=== PATIENT | female | born 1945 | race Caucasian/White ===

== ENCOUNTER 2019-06-09 15:24 | Inpatient (IN) | payer MEDICARE ==
[~2019-06-09] VITALS: Ht 157.5 cm; Wt 71.3 kg
--- NOTE | 2019-06-09 16:03 | EKG ---
[facility] [address] [place] [address] Test Date: 2019-06-09 Test Time: 15:35:56 Pat Name: Lizandro CRANE Department: Room: Gender: F [employer] In Worker: : 1945 Requested By: BILLIE FLORES Order Number: [id number] Reading MD: Measurements Intervals [place] Rate: 60 P: 43 MI: 126 QRS: 42 QRSD: 82 T: 39 QT: 398 QTc: 402 Interpretive Statements SINUS RHYTHM NORMAL ECG No previous ECG available for comparison
[2019-06-09 16:09] LABS: HEMATOCRIT 40.7 % (36.0-47.0); HEMOGLOBIN 14.1 g/dL (12.0-15.5); MEAN CORPUSCULAR HEMOGLOBIN 30 pg (25-35); MEAN CORPUSCULAR HGB CONC 35 g/dL (31-37); MEAN CORPUSCULAR VOLUME 87 fL (79-100); PLATELET COUNT 388 x10^3/uL (140-400); RED BLOOD COUNT 4.65 x10^6/uL (3.50-5.40); RED CELL DISTRIBUTION WIDTH 13.7 % (11.5-14.5); WHITE BLOOD COUNT 10.2 x10^3/uL (4.0-11.0)
[2019-06-09 16:10] LABS: BASO % 0 % (0-3); EOS # 0.1 x10^3/uL (0.0-0.7); EOS % 1 % (0-3); LYMPH # 1.3 x10^3/uL (1.0-4.8); LYMPH % 12 % (24-48); MONO # 0.8 x10^3/uL (0.0-1.1); MONO % 8 % (0-9); NEUT % 78 % (31-73)
--- NOTE | 2019-06-09 16:42 | RAD ---
EXAM: CHEST 1 VIEW History: Dizziness COMPARISON: None available. TECHNIQUE: Single portable radiograph of the chest FINDINGS: The cardiac silhouette is unremarkable. The lungs are clear bilaterally. The costophrenic sulci are clear and well demarcated. IMPRESSION: No radiographic evidence of an acute cardiopulmonary process. Electronically signed by: Gareth Valerio MD (06/09/2019 4:39 PM) [id number]
--- NOTE | 2019-06-09 16:45 | RAD ---
PQRS Compliance Statement: One or more of the following individualized dose reduction techniques were utilized for this examination: 1. Automated exposure control 2. Adjustment of the mA and/or kV according to patient size 3. Use of iterative reconstruction technique CT head without contrast 06/09/2019 4:31 PM INDICATION: Dizziness, CVA COMPARISON: None available TECHNIQUE: Multiple axial CT images of the head were obtained from skull base through the vertex without intravenous contrast. FINDINGS: Head: Ventricles, sulci and basal cisterns are within normal limits. Low-attenuation in the periventricular white matter is suggestive of chronic small vessel ischemic changes. There is no hydrocephalus. Keys-white matter differentiation is normal. There is no acute intracranial hemorrhage. There is no mass, mass effect or midline shift. Posterior fossa is normal in appearance. Calcified extra-axial lesion along the left frontal convexity most favors a calcified meningioma. Visualized portions of the orbits are normal with exception of left lens replacement. Paranasal sinuses are well aerated. Mastoid air cells are well aerated. Scalp and calvaria are normal. IMPRESSION: No acute intracranial hemorrhage. Low-attenuation in the periventricular white matter is suggestive of chronic small vessel ischemic changes. Densely calcified extra-axial lesion along the left frontal convexity measures 7 mm, suggestive of a calcified meningioma. Electronically signed by: Emely Saenz MD (06/09/2019 4:42 PM) [id number]
[2019-06-09 16:53] LABS: CALCIUM 9.2 mg/dL (8.5-10.1); CREATININE 8.2 mg/dL (0.6-1.0); GFR 4.8; POTASSIUM 5.3 mmol/L (3.5-5.1)
[2019-06-09 17:03] LABS: PROTHROMBIN TIME PATIENT 13.7 SEC (11.7-14.0)
[2019-06-09 17:07] LABS: CREATINE KINASE 48 U/L (26-192)
[2019-06-09 17:08] LABS: ALBUMIN 3.4 g/dL (3.4-5.0); ALBUMIN/GLOBULIN RATIO 0.9 (1.0-1.7); MAGNESIUM 3.6 mg/dL (1.8-2.4); TOTAL BILIRUBIN 0.3 mg/dL (0.2-1.0)
[2019-06-09] MEDS ORDERED: ONDANSETRON PF 4 MG/2 ML VIAL. IV ONE (17:15)
[2019-06-09] MEDS ORDERED: MECLIZINE HCL 12.5 MG TABLET. PO ONE (17:15)
--- NOTE | 2019-06-09 17:24 | PHYS DOC ---
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 Patient states most of her symptoms are worse when she is up and moving. Denies any chest pain or shortness of breath. She states she is from [place] and recently moved to [place] and has no PCP. She states she had similar symptoms when she had a stroke. Review of Systems Review of Systems Constitutional: Denies fever or chills [] Eyes: Denies change in visual acuity, redness, or eye pain [] HENT: Denies nasal congestion or sore throat [] Respiratory: Denies cough or shortness of breath [] Cardiovascular: No additional information not addressed in HPI [] GI: Reports nausea and vomiting. Denies abdominal pain, bloody stools or diarrhea [] : Denies dysuria or hematuria [] Musculoskeletal: Denies back pain or joint pain [] Integument: Denies rash or skin lesions [] Neurologic: Reports dizziness. Reports loss of consciousness. Reports feeling off balance. Denies headache, focal weakness or sensory changes [] All other systems were reviewed and found to be within normal limits, except as documented in this note. Current Medications Current Medications Allergies Allergies Allergies Coded Allergies Type Severity Reaction Last Updated Verified No Known Drug Allergies 06/09/19 No Physical Exam Physical Exam Constitutional: Well developed, well nourished, no acute distress, non-toxic appearance. [] HENT: Normocephalic, atraumatic, bilateral external ears normal, oropharynx moist, no oral exudates, nose normal. [] Eyes: PERRLA, EOMI, conjunctiva normal, no discharge. [] Neck: Normal range of motion, no tenderness, supple, no stridor. [] Cardiovascular:Heart rate regular rhythm, no murmur [] Lungs & Thorax: Bilateral breath sounds clear to auscultation [] Abdomen: Bowel sounds normal, soft, no tenderness, no masses, no pulsatile masses. [] Skin: Warm, dry, no erythema, no rash. [] Back: No tenderness, no CVA tenderness. [] Extremities: No tenderness, no cyanosis, no clubbing, ROM intact, no edema. [] Neurologic: Alert and oriented X 3, normal motor function, normal sensory function, no focal deficits noted. Cranial nerves II through XII intact Psychologic: Affect normal, judgement normal, mood normal. [] Current Patient Data Vital Signs Vital Signs Date Time Temp Pulse Resp B/P (MAP) Pulse Ox O2 Delivery O2 Flow Rate FiO2 06/09/19 16:05 57 16 97 06/09/19 15:37 97.9 106/51 (69) Room Air 97.9 Lab Values Laboratory Tests Test 06/09/19 15:34 06/09/19 15:50 06/09/19 16:30 Glucose (Fingerstick) 139 mg/dL (70-99) H White Blood Count 10.2 x10^3/uL (4.0-11.0) Red Blood Count 4.65 x10^6/uL (3.50-5.40) Hemoglobin 14.1 g/dL (12.0-15.5) Hematocrit 40.7 % (36.0-47.0) Mean Corpuscular Volume 87 fL (79-100) Mean Corpuscular Hemoglobin 30 pg (25-35) Mean Corpuscular Hemoglobin Concent 35 g/dL (31-37) Red Cell Distribution Width 13.7 % (11.5-14.5) Platelet Count 388 x10^3/uL (140-400) Neutrophils (%) (Auto) 78 % (31-73) H Lymphocytes (%) (Auto) 12 % (24-48) L Monocytes (%) (Auto) 8 % (0-9) Eosinophils (%) (Auto) 1 % (0-3) Basophils (%) (Auto) 0 % (0-3) Neutrophils # (Auto) 8.0 x10^3/uL (1.8-7.7) H Lymphocytes # (Auto) 1.3 x10^3/uL (1.0-4.8) Monocytes # (Auto) 0.8 x10^3/uL (0.0-1.1) Eosinophils # (Auto) 0.1 x10^3/uL (0.0-0.7) Basophils # (Auto) 0.0 x10^3/uL (0.0-0.2) Prothrombin Time 13.7 SEC (11.7-14.0) Prothrombin Time INR 1.1 (0.8-1.1) PTT 27 SEC (24-38) Sodium Level 128 mmol/L (136-145) L Potassium Level 5.3 mmol/L (3.5-5.1) H Chloride Level 88 mmol/L (98-107) L Carbon Dioxide Level 21 mmol/L (21-32) Anion Gap 19 (6-14) H Blood Urea Nitrogen 120 mg/dL (7-20) H Creatinine 8.2 mg/dL (0.6-1.0) H Estimated GFR (Cockcroft-Gault) 4.8 BUN/Creatinine Ratio 15 (6-20) Glucose Level 120 mg/dL (70-99) H Calcium Level 9.2 mg/dL (8.5-10.1) Magnesium Level 3.6 mg/dL (1.8-2.4) H Total Bilirubin 0.3 mg/dL (0.2-1.0) Aspartate Amino Transferase (AST) 14 U/L (15-37) L Alanine Aminotransferase (ALT) 19 U/L (14-59) Alkaline Phosphatase 123 U/L (46-116) H Creatine Kinase 48 U/L (26-192) Creatine Kinase MB (Mass) 1.1 ng/mL (0.0-3.6) Creatine Kinase MB Relative Index % (0-4) Troponin I Quantitative < 0.017 ng/mL (0.000-0.055) BY-Btf-D-Type Natriuretic Peptide 829 pg/mL (0-124) H Total Protein 7.0 g/dL (6.4-8.2) Albumin 3.4 g/dL (3.4-5.0) Albumin/Globulin Ratio 0.9 (1.0-1.7) L Thyroid Stimulating Hormone (TSH) 0.725 uIU/mL (0.358-3.74) Laboratory Tests 06/09/19 15:50 Laboratory Tests 06/09/19 16:30 EKG EKG 15:[address] Hinojosa sinus rhythm HR 60 no STEMI[] Radiology/Procedures Radiology/Procedures []PROCEDURE: PORTABLE CHEST 1V EXAM: CHEST 1 VIEW History: Dizziness COMPARISON: None available. TECHNIQUE: Single portable radiograph of the chest FINDINGS: The cardiac silhouette is unremarkable. The lungs are clear bilaterally. The costophrenic sulci are clear and well demarcated. IMPRESSION: No radiographic evidence of an acute cardiopulmonary process. Electronically signed by: Gareth Valerio MD (06/09/2019 4:39 PM) [facility] [id number] DICTATED and SIGNED BY: GARETH VALERIO MD DATE: 06/09/19 [id number] PROCEDURE: CT HEAD WO CONTRAST PQRS Compliance Statement: One or more of the following individualized dose reduction techniques were utilized for this examination: 1. Automated exposure control 2. Adjustment of the mA and/or kV according to patient size 3. Use of iterative reconstruction technique CT head without contrast 06/09/2019 4:31 PM INDICATION: Dizziness, CVA COMPARISON: None available TECHNIQUE: Multiple axial CT images of the head were obtained from skull base through the vertex without intravenous contrast. FINDINGS: Head: Ventricles, sulci and basal cisterns are within normal limits. Low-attenuation in the periventricular white matter is suggestive of chronic small vessel ischemic changes. There is no hydrocephalus. Keys-white matter differentiation is normal. There is no acute intracranial hemorrhage. There is no mass, mass effect or midline shift. Posterior fossa is normal in appearance. Calcified extra-axial lesion along the left frontal convexity most favors a calcified meningioma. Visualized portions of the orbits are normal with exception of left lens replacement. Paranasal sinuses are well aerated. Mastoid air cells are well aerated. Scalp and calvaria are normal. IMPRESSION: No acute intracranial hemorrhage. Low-attenuation in the periventricular white matter is suggestive of chronic small vessel ischemic changes. Densely calcified extra-axial lesion along the left frontal convexity measures 7 mm, suggestive of a calcified meningioma. Electronically signed by: Bruno Mendez MD (06/09/2019 4:42 PM) [id number] DICTATED and SIGNED BY: BRUNO MENDEZ MD DATE: 06/09/19 1642 Course & Med Decision Making Course & Med Decision Making Pertinent Labs and Imaging studies reviewed. (See chart for details) This is a 74-year-old female who presents to the ED today with multiple complaints including dizziness, nausea, vomiting, feeling off balance, hypertension, symptoms began 4 days ago, she is also complaining of having 6 episodes of loss of consciousness in the last 2 days. Patient's vitals on arrival to the ED temperature 97.9, heart rate 61 respiration 20 blood pressure 106/51 O2 sats 99% on room air CT of the head is negative, chest x-ray is negative. EKG was negative for any acute findings. CBC no acute findings, CMP with sodium of 128, creatinine of 8.2 with BUN of 120, glucose of 120 with anion gap 19, magnesium of 3.6, potassium 5.3 with no EKG changes. 17:[address] Landis she requested IV fluids, renal ultrasound, and we stop any water pills. Spoke with Dr. Donohue who accepted patient for admission Routine consult placed for neurology Dragon Disclaimer Dragon Disclaimer This electronic medical record was generated, in whole or in part, using a voice recognition dictation system. Departure Departure Impression: Primary Impression: Hyponatremia Additional Impressions: Acute on chronic renal failure Dizziness Hypotension Disposition: ADMITTED INPATIENT Condition: STABLE Referrals: JANETTE WEEKS MD (PCP) NIHSS Stroke Scale NIH Stroke Scale: NIH Stroke Scale Response (Comments) Value Level of Consciousness: 0 Alert/Responsive 0 LOC Questions: 0 Answers both correctly 0 Best Gaze: 0 Normal 0 Visual: 0 No visual loss 0 Facial Palsy: 0 Normal, symmetrical 0 Motor - Left Arm 0 No drift 0 Motor - Right Arm 0 No drift 0 Motor - Left Leg 0 No drift 0 Motor: Right Leg 0 No drift 0 Limb Ataxia: 0 Absent 0 Sensory: 0 No loss 0 Best Language: 0 Normal 0 Dysathria: 0 Normal 0 Extinction and Inattention: 0 Normal 0 Total 0 Problem Qualifiers Additional Impressions: Acute on chronic renal failure Acute renal failure type: unspecified Chronic kidney disease stage: unspecified stage Qualified Codes: N17.9 - Acute kidney failure, unspec ified; N18.9 - Chronic kidney disease, unspecified Hypotension Hypotension type: unspecified hypotension type Qualified Codes: I95.9 - Hypotension, unspecified MUTUNGABILLIE APRN Jun 09, 2019 17:24
[2019-06-09] MEDS ORDERED: IV NORMAL SALINE 1000ML BAG 1,000 ML IV ONE ×2 (18:00→19:30)
[2019-06-09] MEDS ORDERED: ONDANSETRON PF 4 MG/2 ML VIAL. IV PRN (18:00)
[2019-06-09 19:00] VITALS: BP 93/47
[2019-06-09] MEDS ORDERED: NICOTINE 14MG PATCH. TD PRN (20:15)
--- NOTE | 2019-06-09 20:17 | PDOC1 ---
History and Physical Date of Admission Date of Admission DATE: 06/09/19 TIME: 20:12 Source Source: Chart review, Patient History of Present Illness History of Present Illness Selam Shepherd is a 74 year old female admit form ER for worsening dizziness for 4 days, 6 episodes of loss of consciousness in the last 2 days, nausea with vomiting, feeling [id number] 4 days. She has been drinking a normal amount of water, has been making some urine, is unsure if it is less. no new swelling, her dizzyness has been worse with ambulation, she is very thistry right, now, has not been out in the heat. She states she is from [place] and recently moved to [place] and has no PCP, but will be moving here to live prior CVA x2, last in 2011, she is mostly recovered Past Medical History Cardiovascular: HTN CENTRAL NERVOUS SYSTEM: CVA GI: No pertinent hx Heme/Onc: No pertinent hx ENT: No pertinent hx Renal/: No pertinent hx Endocrine: No pertinent hx Family History Family History: No Significant Social History Smoke: <1 pack per day ALCOHOL: none Drugs: None Current Problem List Problem List Problems Medical Problems: (1) Acute on chronic renal failure Status: Acute (2) Dizziness Status: Acute (3) Hypotension Status: Acute Current Medications Current Medications Current Medications Ondansetron HCl (Zofran) 4 mg 1X ONCE IV Last administered on 06/09/19at 17:11; Start 06/09/19 at 17:15; Stop 06/09/19 at 17:16; Status DC Meclizine HCl (Antivert) 25 mg 1X ONCE PO Last administered on 06/09/19at 17:11; Start 06/09/19 at 17:15; Stop 06/09/19 at 17:16; Status DC Ondansetron HCl (Zofran) 4 mg PRN Q8HRS PRN IV NAUSEA/VOMITING; Start 06/09/19 at 18:00; Stop 06/10/19 at 17:59 Sodium Chloride 1,000 ml @ 125 mls/hr 1X ONCE IV Last administered on 06/09/19at 18:42; Start 06/09/19 at 18:00; Stop 06/10/19 at 01:59 Sodium Chloride 1,000 ml @ 100 mls/hr 1X ONCE IV ; Start 7/18/19 at 19:30; Stop 06/10/19 at 05:29 Allergies Allergies: Coded Allergies: No Known Drug Allergies (Unverified , 06/09/19) ROS General: YES: Fatigue; No: Chills, Night Sweats, Malaise, Appetite, Other PSYCHOLOGICAL ROS: No: Anxiety, Behavioral Disorder, Concentration difficultie, Decreased libido, Depression, Disorientation, Hallucinations, Hostility, Irritablity, Memory difficulties, Mood Swings, Obsessive thoughts, Physical abuse, Sexual abuse, Sleep disturbances, Suicidal ideation, Other Eyes: No Blurry vision, No Decreased vision, No Double vision, No Dry eyes, No Excessive tearing, No Eye Pain, No Itchy Eyes, No Loss of vision, No Ph otophobia, No Scotomata, No Uses contacts, No Uses glasses, No Other HEENT: YES: Heacaches; No: Visual Changes, Hearing change, Nasal congestion, Nasal discharge, Oral lesions, Sinus pain, Sore Throat, Epistaxis, Sneezing, Snoring, Tinnitus, Vertigo, Vocal changes, Other Hematological and Lymphatic: No: Bleeding Problems, Blood Clots, Blood Transfusions, Brusing, Night Sweats, Pallor, Swollen Lymph Nodes, Other Respiratory: No: Cough, Hemoptysis, Orthopnea, Pleuritic Pain, Shortness of breath, SOB with excertion, Sputum Changes, Stridor, Tachypnea, Wheezing, Other Cardiovascular: No Chest Pain, No Palpitations, No Orthopnea, No Paroxysmal Noc. Dyspnea, No Edema, No Lt Headedness, No Other Gastrointestinal: No Nausea, No Vomiting, No Abdominal Pain, No Diarrhea, No Constipation, No Melena, No Hematochezia, No Other Genitourinary: No Dysuria, No Frequency, No Incontinence, No Hematuria, No Retention, No Discharge, No Urgency, No Pain, No Flank Pain, No Other, No , No , No , No , No , No , No Musculoskeletal: Yes Joint Stiffness; No Gait Disturbance, No Joint Pain, No Joint Swelling, No Muscle Pain, No Muscular Weakness, No Pain In:, No Swelling In:, No Other Neurological: No Behavorial Changes, No Bowel/Bladder ControlChng, No Confusion, No Dizziness, No Gait Disturbance, No Headaches, No Impaired Coord/balance, No Memory Loss, No Numbness/Tingling, No Seizures, No Speech Problems, No Tremors, No Visual Changes, No Weakness, No Other Skin: Yes Dry Skin; No Eczema, No Hair Changes, No Lumps, No Mole Changes, No Mottling, No Nail Changes, No Pruritus, No Rash, No Skin Lesion Changes, No Other, No Acne Physical Exam General: Alert, Cooperative, No acute distress HEENT: EOMI Lungs: Clear to auscultation Heart: S1S2, RRR, no gallops, no murmurs Abdomen: Normal bowel sounds, Soft Rectal Exam: not examined Extremities: No cyanosis, No edema, Normal pulses Skin: No significant lesion Neuro: Normal speech, Sensation intact, Cranial nerves 3-12 NL Psych/Mental Status: Mental status NL, Mood NL Vitals Vitals Vital Signs Date Time Temp Pulse Resp B/P (MAP) Pulse Ox O2 Delivery O2 Flow Rate FiO2 06/09/19 18:40 62 24 97 06/09/19 15:37 97.9 106/51 (69) Room Air 97.9 Labs Labs Laboratory Tests Test 06/09/19 15:34 06/09/19 15:50 06/09/19 16:30 Glucose (Fingerstick) 139 mg/dL (70-99) White Blood Count 10.2 x10^3/uL (4.0-11.0) Red Blood Count 4.65 x10^6/uL (3.50-5.40) Hemoglobin 14.1 g/dL (12.0-15.5) Hematocrit 40.7 % (36.0-47.0) Mean Corpuscular Volume 87 fL (79-100) Mean Corpuscular Hemoglobin 30 pg (25-35) Mean Corpuscular Hemoglobin Concent 35 g/dL (31-37) Red Cell Distribution Width 13.7 % (11.5-14.5) Platelet Count 388 x10^3/uL (140-400) Neutrophils (%) (Auto) 78 % (31-73) Lymphocytes (%) (Auto) 12 % (24-48) Monocytes (%) (Auto) 8 % (0-9) Eosinophils (%) (Auto) 1 % (0-3) Basophils (%) (Auto) 0 % (0-3) Neutrophils # (Auto) 8.0 x10^3/uL (1.8-7.7) Lymphocytes # (Auto) 1.3 x10^3/uL (1.0-4.8) Monocytes # (Auto) 0.8 x10^3/uL (0.0-1.1) Eosinophils # (Auto) 0.1 x10^3/uL (0.0-0.7) Basophils # (Auto) 0.0 x10^3/uL (0.0-0.2) Prothrombin Time 13.7 SEC (11.7-14.0) Prothromb Time International Ratio 1.1 (0.8-1.1) Activated Partial Thromboplast Time 27 SEC (24-38) Sodium Level 128 mmol/L (136-145) Potassium Level 5.3 mmol/L (3.5-5.1) Chloride Level 88 mmol/L (98-107) Carbon Dioxide Level 21 mmol/L (21-32) Anion Gap 19 (6-14) Blood Urea Nitrogen 120 mg/dL (7-20) Creatinine 8.2 mg/dL (0.6-1.0) Estimated GFR (Cockcroft-Gault) 4.8 BUN/Creatinine Ratio 15 (6-20) Glucose Level 120 mg/dL (70-99) Calcium Level 9.2 mg/dL (8.5-10.1) Magnesium Level 3.6 mg/dL (1.8-2.4) Total Bilirubin 0.3 mg/dL (0.2-1.0) Aspartate Amino Transf (AST/SGOT) 14 U/L (15-37) Alanine Aminotransferase (ALT/SGPT) 19 U/L (14-59) Alkaline Phosphatase 123 U/L (46-116) Creatine Kinase 48 U/L (26-192) Creatine Kinase MB (Mass) 1.1 ng/mL (0.0-3.6) Creatine Kinase MB Relative Index % (0-4) Troponin I Quantitative < 0.017 ng/mL (0.000-0.055) BX-Uxl-R-Type Natriuretic Peptide 829 pg/mL (0-124) Total Protein 7.0 g/dL (6.4-8.2) Albumin 3.4 g/dL (3.4-5.0) Albumin/Globulin Ratio 0.9 (1.0-1.7) Thyroid Stimulating Hormone (TSH) 0.725 uIU/mL (0.358-3.74) Laboratory Tests Test 06/09/19 15:34 06/09/19 15:50 06/09/19 16:30 Glucose (Fingerstick) 139 mg/dL (70-99) White Blood Count 10.2 x10^3/uL (4.0-11.0) Red Blood Count 4.65 x10^6/uL (3.50-5.40) Hemoglobin 14.1 g/dL (12.0-15.5) Hematocrit 40.7 % (36.0-47.0) Mean Corpuscular Volume 87 fL (79-100) Mean Corpuscular Hemoglobin 30 pg (25-35) Mean Corpuscular Hemoglobin Concent 35 g/dL (31-37) Red Cell Distribution Width 13.7 % (11.5-14.5) Platelet Count 388 x10^3/uL (140-400) Neutrophils (%) (Auto) 78 % (31-73) Lymphocytes (%) (Auto) 12 % (24-48) Monocytes (%) (Auto) 8 % (0-9) Eosinophils (%) (Auto) 1 % (0-3) Basophils (%) (Auto) 0 % (0-3) Neutrophils # (Auto) 8.0 x10^3/uL (1.8-7.7) Lymphocytes # (Auto) 1.3 x10^3/uL (1.0-4.8) Monocytes # (Auto) 0.8 x10^3/uL (0.0-1.1) Eosinophils # (Auto) 0.1 x10^3/uL (0.0-0.7) Basophils # (Auto) 0.0 x10^3/uL (0.0-0.2) Prothrombin Time 13.7 SEC (11.7-14.0) Prothromb Time International Ratio 1.1 (0.8-1.1) Activated Partial Thromboplast Time 27 SEC (24-38) Sodium Level 128 mmol/L (136-145) Potassium Level 5.3 mmol/L (3.5-5.1) Chloride Level 88 mmol/L (98-107) Carbon Dioxide Level 21 mmol/L (21-32) Anion Gap 19 (6-14) Blood Urea Nitrogen 120 mg/dL (7-20) Creatinine 8.2 mg/dL (0.6-1.0) Estimated GFR (Cockcroft-Gault) 4.8 BUN/Creatinine Ratio 15 (6-20) Glucose Level 120 mg/dL (70-99) Calcium Level 9.2 mg/dL (8.5-10.1) Magnesium Level 3.6 mg/dL (1.8-2.4) Total Bilirubin 0.3 mg/dL (0.2-1.0) Aspartate Amino Transf (AST/SGOT) 14 U/L (15-37) Alanine Aminotransferase (ALT/SGPT) 19 U/L (14-59) Alkaline Phosphatase 123 U/L (46-116) Creatine Kinase 48 U/L (26-192) Creatine Kinase MB (Mass) 1.1 ng/mL (0.0-3.6) Creatine Kinase MB Relative Index % (0-4) Troponin I Quantitative < 0.017 ng/mL (0.000-0.055) BE-Vvf-C-Type Natriuretic Peptide 829 pg/mL (0-124) Total Protein 7.0 g/dL (6.4-8.2) Albumin 3.4 g/dL (3.4-5.0) Albumin/Globulin Ratio 0.9 (1.0-1.7) Thyroid Stimulating Hormone (TSH) 0.725 uIU/mL (0.358-3.74) VTE Prophylaxis Ordered VTE Prophylaxis Devices: No VTE Pharmacological Prophylaxi: Yes Assessment/Plan Assessment/Plan acute renal failure, atn hyponatremia htn prior stroke BEL PAYNE MD Jun 09, 2019 20:17
[2019-06-09 23:00] VITALS: BP 93/50
[2019-06-10] VITALS (8 sets, daily range): BP systolic 90–121; BP diastolic 43–56
[2019-06-10] MEDS ORDERED: MELO7.5T29 PO (00:03)
[2019-06-10] MEDS ORDERED: LISI-130 PO (00:03)
[2019-06-10] MEDS ORDERED: ATEN50TA PO (00:03)
[2019-06-10] MEDS ORDERED: LEVO137T3 PO (00:03)
[2019-06-10] MEDS ORDERED: CYCL10TA2 PO (00:03)
[2019-06-10] MEDS ORDERED: ACETAMINOPHEN 325 MG TABLET. PO PRN (03:30)
[2019-06-10 04:45] LABS: BASO % 0 % (0-3); EOS # 0.1 x10^3/uL (0.0-0.7); EOS % 2 % (0-3); HEMATOCRIT 40.6 % (36.0-47.0); HEMOGLOBIN 13.4 g/dL (12.0-15.5); LYMPH # 1.4 x10^3/uL (1.0-4.8); LYMPH % 15 % (24-48); MEAN CORPUSCULAR HEMOGLOBIN 30 pg (25-35); MEAN CORPUSCULAR HGB CONC 33 g/dL (31-37); MEAN CORPUSCULAR VOLUME 91 fL (79-100); MONO # 0.8 x10^3/uL (0.0-1.1); MONO % 9 % (0-9); NEUT # 6.9 x10^3/uL (1.8-7.7); NEUT % 75 % (31-73); PLATELET COUNT 292 x10^3/uL (140-400); RED BLOOD COUNT 4.48 x10^6/uL (3.50-5.40); RED CELL DISTRIBUTION WIDTH 13.7 % (11.5-14.5); WHITE BLOOD COUNT 9.3 x10^3/uL (4.0-11.0)
[2019-06-10 05:13] LABS: CALCIUM 8.5 mg/dL (8.5-10.1); CREATININE 7.7 mg/dL (0.6-1.0); GFR 5.1; PHOSPHORUS 8.9 mg/dL (2.6-4.7); POTASSIUM 4.8 mmol/L (3.5-5.1)
--- NOTE | 2019-06-10 07:54 | RAD ---
Indication:Elevated creatinine. TECHNIQUE: Grayscale, color Doppler and spectral waveform is of the kidneys obtained. COMPARISON:None FINDINGS: Right kidney measures 10.2 x 4.0 x 4.7 cm without hydronephrosis. Few hypoechoic to anechoic lesions are seen in the right kidney, the largest measuring 1.5 x 1.3 x 1.2 cm. IVC is collapsed. Diffuse atherosclerotic plaque is seen in the aorta which is patent. No aortic aneurysm. Bladder is decompressed limiting evaluation. Left kidney measures 11.7 x 3.8 x 4.3 cm. Hypoechoic lesion is seen in the inferior pole of the left kidney measuring 1.4 x 1 point for by 1.1 cm. No elevated resistive indexes in the bilateral renal arteries. IMPRESSION: 1. Evidence of chronic kidney disease. 2. Bilateral small hypoechoic lesions likely cysts some of which may be minimally complicated although given small size it is difficult to characterize. Consider nonemergent MRI of the abdomen with IV contrast for better characterization of this lesions. Alternatively follow-up ultrasound in 3 months recommended. Electronically signed by: Jv Toney DO (06/10/2019 7:51 AM) [facility]
[2019-06-10] MEDS: LEVOTHYROXINE 137 MCG TABLET PO SCH (09:00)
[2019-06-10] MEDS: CYCLOBENZAPRINE 10 MG TABLET. PO SCH ×3 (09:00→20:56)
[2019-06-10] MEDS ORDERED: ONDANSETRON PF 4 MG/2 ML VIAL. IV PRN (09:00)
[2019-06-10] MEDS ORDERED: MECLIZINE HCL 12.5 MG TABLET. PO PRN (09:00)
[2019-06-10] MEDS ORDERED: ACETAMINOPHEN 500 MG TABLET PO PRN (09:00)
--- NOTE | 2019-06-10 09:08 | NUR ---
SW reviewed pt's medical chart and evaluated for potential dc needs. Pt recently moved to [place] from [place], [place]. She currently lives home alone and was admitted for hypotension unspecified and acute kidney failure with tubular necrosis. Pt is on room air and PT/OT has not been ordered. SW will continue to follow and evaluate for potential dc needs.
--- NOTE | 2019-06-10 10:00 | PDOC2 ---
CONSULT Date of Consult Date of Consult DATE: 06/10/19 TIME: 09:57 Reason for Consult Reason for Consult: DIVINA, Hyponatremia Source Source: Chart review, Patient History of Present Illness Reason for Visit: Pt is a 74 year old CF admit form ER for worsening dizziness for 4 days, 6 episodes of loss of consciousness in the last 2 days, nausea with vomiting, feeling pei-vctunfl-obm 4 days. She has been drinking a normal amount of water, has been making some urine, is unsure if it is less. no new swelling, her dizzyness has been worse with ambulation. She states she is from [place] and recently moved to [place] and has no PCP, but will be moving here to live prior CVA x2, last in 2011, she is mostly recovered. She states she is not aware of any CKD - ? Poor historian Past Medical History Cardiovascular: HTN CENTRAL NERVOUS SYSTEM: CVA GI: No pertinent hx Heme/Onc: No pertinent hx ENT: No pertinent hx Renal/: No pertinent hx Endocrine: No pertinent hx Family History Family History: No Significant Social History <1 pack per day ALCOHOL: none Drugs: None Current Problem List Problem List Problems Medical Problems: (1) Acute on chronic renal failure Status: Acute (2) Dizziness Status: Acute (3) Hypotension Status: Acute Current Medications Current Medications Current Medications Ondansetron HCl (Zofran) 4 mg 1X ONCE IV Last administered on 06/09/19at 17:11; Start 06/09/19 at 17:15; Stop 06/09/19 at 17:16; Status DC Meclizine HCl (Antivert) 25 mg 1X ONCE PO Last administered on 06/09/19at 17:11; Start 06/09/19 at 17:15; Stop 06/09/19 at 17:16; Status DC Ondansetron HCl (Zofran) 4 mg PRN Q8HRS PRN IV NAUSEA/VOMITING; Start 06/09/19 at 18:00; Stop 06/10/19 at 08:50; Status DC Sodium Chloride 1,000 ml @ 125 mls/hr 1X ONCE IV Last administered on 06/09/19at 18:42; Start 06/09/19 at 18:00; Stop 06/10/19 at 01:59; Status DC Sodium Chloride 1,000 ml @ 100 mls/hr 1X ONCE IV Last administered on 06/09/19at 19:30; Start 06/09/19 at 19:30; Stop 06/10/19 at 05:29; Status DC Nicotine (Nicoderm Cq 14mg) 1 patch PRN DAILY PRN TD SMOKING CESSATION; Start 06/09/19 at 20:15 Acetaminophen (Tylenol) 650 mg PRN Q6HRS PRN PO MILD PAIN 1-3 Last administered on 06/10/19at 03:57; Start 06/10/19 at 03:30; Stop 06/10/19 at 08:52; Status DC Ondansetron HCl (Zofran) 4 mg PRN Q6HRS PRN IV NAUSEA/VOMITING; Start 06/10/19 at 09:00 Acetaminophen (Tylenol) 500 mg PRN Q6HRS PRN PO MILD PAIN / TEMP; Start 06/10/19 at 09:00 Acetaminophen/ Codeine Phosphate (Tylenol #3) 1 tab PRN Q6HRS PRN PO MODERATE PAIN; Start 06/10/19 at 09:00 Meclizine HCl (Antivert) 25 mg PRN Q6HRS PRN PO DIZZINESS; Start 06/10/19 at 09:00 Cyclobenzaprine HCl (Flexeril) 10 mg TID PO ; Start 06/10/19 at 09:00 Levothyroxine Sodium (Synthroid) 137 mcg DAILY06 PO ; Start 06/10/19 at 09:00 Sodium Chloride 1,000 ml @ 100 mls/hr Q10H IV ; Start 06/10/19 at 09:00 Active Scripts Active Reported Lisinopril 40 Mg Tablet 1 Tab PO DAILY Cyclobenzaprine Hcl 10 Mg Tablet 1 Tab PO TID Atenolol 50 Mg Tablet 1 Tab PO DAILY Levothyroxine Sodium 137 Mcg Tablet 1 Tab PO DAILY Meloxicam 7.5 Mg Tablet 7.5 Mg PO DAILY Allergies Allergies: Coded Allergies: No Known Drug Allergies (Unverified , 06/09/19) ROS Review of System Per HPI Physical Exam Physical Exam General: Alert, Cooperative, No acute distress HEENT: EOMI Lungs: Clear to auscultation Heart: S1S2, RRR, no gallops, no murmurs Abdomen: Normal bowel sounds, Soft Extremities: No edema Skin: No rash Neuro: Grossly normal, No asterexis No Quijano Vital Signs Vital Signs Date Time Temp Pulse Resp B/P (MAP) Pulse Ox O2 Delivery O2 Flow Rate FiO2 06/10/19 07:00 98.2 62 18 121/47 (71) 97 Room Air 98.2 Assessment & Plan DIVINA - ? ATN No past medical Hx available No improvement with IVF Will initiate HD Hyponatremia- Hemodialysis today, Continue IVF as well HTN- BP stable Hx of CVA Discussed with Pt and RN Labs Labs Laboratory Tests Test 06/09/19 15:34 06/09/19 15:50 06/09/19 16:30 06/10/19 04:00 Glucose (Fingerstick) 139 mg/dL (70-99) White Blood Count 10.2 x10^3/uL (4.0-11.0) 9.3 x10^3/uL (4.0-11.0) Red Blood Count 4.65 x10^6/uL (3.50-5.40) 4.48 x10^6/uL (3.50-5.40) Hemoglobin 14.1 g/dL (12.0-15.5) 13.4 g/dL (12.0-15.5) Hematocrit 40.7 % (36.0-47.0) 40.6 % (36.0-47.0) Mean Corpuscular Volume 87 fL (79-100) 91 fL (79-100) Mean Corpuscular Hemoglobin 30 pg (25-35) 30 pg (25-35) Mean Corpuscular Hemoglobin Concent 35 g/dL (31-37) 33 g/dL (31-37) Red Cell Distribution Width 13.7 % (11.5-14.5) 13.7 % (11.5-14.5) Platelet Count 388 x10^3/uL (140-400) 292 x10^3/uL (140-400) Neutrophils (%) (Auto) 78 % (31-73) 75 % (31-73) Lymphocytes (%) (Auto) 12 % (24-48) 15 % (24-48) Monocytes (%) (Auto) 8 % (0-9) 9 % (0-9) Eosinophils (%) (Auto) 1 % (0-3) 2 % (0-3) Basophils (%) (Auto) 0 % (0-3) 0 % (0-3) Neutrophils # (Auto) 8.0 x10^3/uL (1.8-7.7) 6.9 x10^3/uL (1.8-7.7) Lymphocytes # (Auto) 1.3 x10^3/uL (1.0-4.8) 1.4 x10^3/uL (1.0-4.8) Monocytes # (Auto) 0.8 x10^3/uL (0.0-1.1) 0.8 x10^3/uL (0.0-1.1) Eosinophils # (Auto) 0.1 x10^3/uL (0.0-0.7) 0.1 x10^3/uL (0.0-0.7) Basophils # (Auto) 0.0 x10^3/uL (0.0-0.2) 0.0 x10^3/uL (0.0-0.2) Prothrombin Time 13.7 SEC (11.7-14.0) Prothromb Time International Ratio 1.1 (0.8-1.1) Activated Partial Thromboplast Time 27 SEC (24-38) Sodium Level 128 mmol/L (136-145) 126 mmol/L (136-145) Potassium Level 5.3 mmol/L (3.5-5.1) 4.8 mmol/L (3.5-5.1) Chloride Level 88 mmol/L (98-107) 91 mmol/L (98-107) Carbon Dioxide Level 21 mmol/L (21-32) 17 mmol/L (21-32) Anion Gap 19 (6-14) 18 (6-14) Blood Urea Nitrogen 120 mg/dL (7-20) 128 mg/dL (7-20) Creatinine 8.2 mg/dL (0.6-1.0) 7.7 mg/dL (0.6-1.0) Estimated GFR (Cockcroft-Gault) 4.8 5.1 BUN/Creatinine Ratio 15 (6-20) Glucose Level 120 mg/dL (70-99) 118 mg/dL (70-99) Calcium Level 9.2 mg/dL (8.5-10.1) 8.5 mg/dL (8.5-10.1) Magnesium Level 3.6 mg/dL (1.8-2.4) Total Bilirubin 0.3 mg/dL (0.2-1.0) Aspartate Amino Transf (AST/SGOT) 14 U/L (15-37) Alanine Aminotransferase (ALT/SGPT) 19 U/L (14-59) Alkaline Phosphatase 123 U/L (46-116) Creatine Kinase 48 U/L (26-192) Creatine Kinase MB (Mass) 1.1 ng/mL (0.0-3.6) Creatine Kinase MB Relative Index % (0-4) Troponin I Quantitative < 0.017 ng/mL (0.000-0.055) WD-Urx-A-Type Natriuretic Peptide 829 pg/mL (0-124) Total Protein 7.0 g/dL (6.4-8.2) Albumin 3.4 g/dL (3.4-5.0) Albumin/Globulin Ratio 0.9 (1.0-1.7) Thyroid Stimulating Hormone (TSH) 0.725 uIU/mL (0.358-3.74) Phosphorus Level 8.9 mg/dL (2.6-4.7) Laboratory Tests Test 06/09/19 15:34 06/09/19 15:50 06/09/19 16:30 06/10/19 04:00 Glucose (Fingerstick) 139 mg/dL (70-99) White Blood Count 10.2 x10^3/uL (4.0-11.0) 9.3 x10^3/uL (4.0-11.0) Red Blood Count 4.65 x10^6/uL (3.50-5.40) 4.48 x10^6/uL (3.50-5.40) Hemoglobin 14.1 g/dL (12.0-15.5) 13.4 g/dL (12.0-15.5) Hematocrit 40.7 % (36.0-47.0) 40.6 % (36.0-47.0) Mean Corpuscular Volume 87 fL (79-100) 91 fL (79-100) Mean Corpuscular Hemoglobin 30 pg (25-35) 30 pg (25-35) Mean Corpuscular Hemoglobin Concent 35 g/dL (31-37) 33 g/dL (31-37) Red Cell Distribution Width 13.7 % (11.5-14.5) 13.7 % (11.5-14.5) Platelet Count 388 x10^3/uL (140-400) 292 x10^3/uL (140-400) Neutrophils (%) (Auto) 78 % (31-73) 75 % (31-73) Lymphocytes (%) (Auto) 12 % (24-48) 15 % (24-48) Monocytes (%) (Auto) 8 % (0-9) 9 % (0-9) Eosinophils (%) (Auto) 1 % (0-3) 2 % (0-3) Basophils (%) (Auto) 0 % (0-3) 0 % (0-3) Neutrophils # (Auto) 8.0 x10^3/uL (1.8-7.7) 6.9 x10^3/uL (1.8-7.7) Lymphocytes # (Auto) 1.3 x10^3/uL (1.0-4.8) 1.4 x10^3/uL (1.0-4.8) Monocytes # (Auto) 0.8 x10^3/uL (0.0-1.1) 0.8 x10^3/uL (0.0-1.1) Eosinophils # (Auto) 0.1 x10^3/uL (0.0-0.7) 0.1 x10^3/uL (0.0-0.7) Basophils # (Auto) 0.0 x10^3/uL (0.0-0.2) 0.0 x10^3/uL (0.0-0.2) Prothrombin Time 13.7 SEC (11.7-14.0) Prothromb Time International Ratio 1.1 (0.8-1.1) Activated Partial Thromboplast Time 27 SEC (24-38) Sodium Level 128 mmol/L (136-145) 126 mmol/L (136-145) Potassium Level 5.3 mmol/L (3.5-5.1) 4.8 mmol/L (3.5-5.1) Chloride Level 88 mmol/L (98-107) 91 mmol/L (98-107) Carbon Dioxide Level 21 mmol/L (21-32) 17 mmol/L (21-32) Anion Gap 19 (6-14) 18 (6-14) Blood Urea Nitrogen 120 mg/dL (7-20) 128 mg/dL (7-20) Creatinine 8.2 mg/dL (0.6-1.0) 7.7 mg/dL (0.6-1.0) Estimated GFR (Cockcroft-Gault) 4.8 5.1 BUN/Creatinine Ratio 15 (6-20) Glucose Level 120 mg/dL (70-99) 118 mg/dL (70-99) Calcium Level 9.2 mg/dL (8.5-10.1) 8.5 mg/dL (8.5-10.1) Magnesium Level 3.6 mg/dL (1.8-2.4) Total Bilirubin 0.3 mg/dL (0.2-1.0) Aspartate Amino Transf (AST/SGOT) 14 U/L (15-37) Alanine Aminotransferase (ALT/SGPT) 19 U/L (14-59) Alkaline Phosphatase 123 U/L (46-116) Creatine Kinase 48 U/L (26-192) Creatine Kinase MB (Mass) 1.1 ng/mL (0.0-3.6) Creatine Kinase MB Relative Index % (0-4) Troponin I Quantitative < 0.017 ng/mL (0.000-0.055) QT-Mgb-A-Type Natriuretic Peptide 829 pg/mL (0-124) Total Protein 7.0 g/dL (6.4-8.2) Albumin 3.4 g/dL (3.4-5.0) Albumin/Globulin Ratio 0.9 (1.0-1.7) Thyroid Stimulating Hormone (TSH) 0.725 uIU/mL (0.358-3.74) Phosphorus Level 8.9 mg/dL (2.6-4.7) Review All relevant outside records, renal labs, imaging studies, telemetry/EKG's were reviewed. Images Images Right kidney measures 10.2 x 4.0 x 4.7 cm without hydronephrosis. Few hypoechoic to anechoic lesions are seen in the right kidney, the largest measuring 1.5 x 1.3 x 1.2 cm. IVC is collapsed. Diffuse atherosclerotic plaque is seen in the aorta which is patent. No aortic aneurysm. Bladder is decompressed limiting evaluation. Left kidney measures 11.7 x 3.8 x 4.3 cm. Hypoechoic lesion is seen in the inferior pole of the left kidney measuring 1.4 x 1 point for by 1.1 cm. No elevated resistive indexes in the bilateral renal arteries. IMPRESSION: 1. Evidence of chronic kidney disease. 2. Bilateral small hypoechoic lesions likely cysts some of which may be minimally complicated although given small size it is difficult to characterize. Consider nonemergent MRI of the abdomen with IV contrast for better characterization of this lesions. Alternatively follow-up ultrasound in 3 months recommended. HARINDER ART MD Jun 10, 2019 10:00
[2019-06-10] MEDS: IV NORMAL SALINE 1000ML BAG 1,000 ML IV SCH ×2 (10:50→22:30)
[2019-06-10] MEDS ORDERED: LIDOCAINE WITH 8.4% SOD BICARB 3 ML DISP.SYRIN. ONE (12:10)
--- NOTE | 2019-06-10 12:23 | PDOC ---
PROGRESS NOTES Chief Complaint Chief Complaint AK I on CK D-stage-5 Diarrhea �4 days Emesis times few days Hypertension, controlled Hyponatremia is smoker History of Present Illness History of Present Illness creat 7 admission and down to 5 Was told her PCP before they were watching the kidneys as OP Sodium 126 from 128, smoker Renal has seen and advises dialysis and will start today after dialysis catheter inserted She gives consent Blood pressure controlled - actually on low side Creatinine down to 5 from 7, some oliguria she noted She was taking mobic, MICHAEL inhibitor at home Plan: hold mobic, MICHAEL inhibitor and atenolol as blood pressure on the low side She came in for dizziness Normal saline to start 100 mL an hour Monitor I and O Ultrasound of the kidneys noted, medical renal disease and I have explained provided copies with daughter at bedside Would benefit from PT OT per RN BMP again tomorrow Avoid nephrotoxins Nicotine patch Smoking cessation Bolus when necessary if hypotension persists HD cath insertion to be done today with first session today Vitals Vitals Vital Signs Date Time Temp Pulse Resp B/P (MAP) Pulse Ox O2 Delivery O2 Flow Rate FiO2 06/10/19 11:00 98.2 65 18 119/44 (69) 98 Room Air 98.2 Physical Exam General: Alert, Cooperative, No acute distress Heart: Regular rate, Normal S1, Normal S2, No murmurs Lungs: Clear Abdomen: Normal bowel sounds, Soft Extremities: No cyanosis, No edema, Normal pulses Skin: No rashes, No breakdown, No significant lesion Labs LABS Laboratory Tests Test 06/09/19 15:34 06/09/19 15:50 06/09/19 16:30 06/10/19 04:00 Glucose (Fingerstick) 139 mg/dL (70-99) White Blood Count 10.2 x10^3/uL (4.0-11.0) 9.3 x10^3/uL (4.0-11.0) Red Blood Count 4.65 x10^6/uL (3.50-5.40) 4.48 x10^6/uL (3.50-5.40) Hemoglobin 14.1 g/dL (12.0-15.5) 13.4 g/dL (12.0-15.5) Hematocrit 40.7 % (36.0-47.0) 40.6 % (36.0-47.0) Mean Corpuscular Volume 87 fL (79-100) 91 fL (79-100) Mean Corpuscular Hemoglobin 30 pg (25-35) 30 pg (25-35) Mean Corpuscular Hemoglobin Concent 35 g/dL (31-37) 33 g/dL (31-37) Red Cell Distribution Width 13.7 % (11.5-14.5) 13.7 % (11.5-14.5) Platelet Count 388 x10^3/uL (140-400) 292 x10^3/uL (140-400) Neutrophils (%) (Auto) 78 % (31-73) 75 % (31-73) Lymphocytes (%) (Auto) 12 % (24-48) 15 % (24-48) Monocytes (%) (Auto) 8 % (0-9) 9 % (0-9) Eosinophils (%) (Auto) 1 % (0-3) 2 % (0-3) Basophils (%) (Auto) 0 % (0-3) 0 % (0-3) Neutrophils # (Auto) 8.0 x10^3/uL (1.8-7.7) 6.9 x10^3/uL (1.8-7.7) Lymphocytes # (Auto) 1.3 x10^3/uL (1.0-4.8) 1.4 x10^3/uL (1.0-4.8) Monocytes # (Auto) 0.8 x10^3/uL (0.0-1.1) 0.8 x10^3/uL (0.0-1.1) Eosinophils # (Auto) 0.1 x10^3/uL (0.0-0.7) 0.1 x10^3/uL (0.0-0.7) Basophils # (Auto) 0.0 x10^3/uL (0.0-0.2) 0.0 x10^3/uL (0.0-0.2) Prothrombin Time 13.7 SEC (11.7-14.0) Prothromb Time International Ratio 1.1 (0.8-1.1) Activated Partial Thromboplast Time 27 SEC (24-38) Sodium Level 128 mmol/L (136-145) 126 mmol/L (136-145) Potassium Level 5.3 mmol/L (3.5-5.1) 4.8 mmol/L (3.5-5.1) Chloride Level 88 mmol/L (98-107) 91 mmol/L (98-107) Carbon Dioxide Level 21 mmol/L (21-32) 17 mmol/L (21-32) Anion Gap 19 (6-14) 18 (6-14) Blood Urea Nitrogen 120 mg/dL (7-20) 128 mg/dL (7-20) Creatinine 8.2 mg/dL (0.6-1.0) 7.7 mg/dL (0.6-1.0) Estimated GFR (Cockcroft-Gault) 4.8 5.1 BUN/Creatinine Ratio 15 (6-20) Glucose Level 120 mg/dL (70-99) 118 mg/dL (70-99) Calcium Level 9.2 mg/dL (8.5-10.1) 8.5 mg/dL (8.5-10.1) Magnesium Level 3.6 mg/dL (1.8-2.4) Total Bilirubin 0.3 mg/dL (0.2-1.0) Aspartate Amino Transf (AST/SGOT) 14 U/L (15-37) Alanine Aminotransferase (ALT/SGPT) 19 U/L (14-59) Alkaline Phosphatase 123 U/L (46-116) Creatine Kinase 48 U/L (26-192) Creatine Kinase MB (Mass) 1.1 ng/mL (0.0-3.6) Creatine Kinase MB Relative Index % (0-4) Troponin I Quantitative < 0.017 ng/mL (0.000-0.055) KD-Mce-V-Type Natriuretic Peptide 829 pg/mL (0-124) Total Protein 7.0 g/dL (6.4-8.2) Albumin 3.4 g/dL (3.4-5.0) Albumin/Globulin Ratio 0.9 (1.0-1.7) Thyroid Stimulating Hormone (TSH) 0.725 uIU/mL (0.358-3.74) Phosphorus Level 8.9 mg/dL (2.6-4.7) Review of Systems Review of Systems A 14 point ROS was completed with the following noted as positive: Other systems reviewed and negative. \CONSTITUTIONAL: No fever or chills EYES: No recent changes SKIN: No rash or itching CARDIOVASCULAR: No chest pain, syncope, palpitations, or edema RESPIRATORY: No SOB or cough GASTROINTESTINAL: No nausea, vomiting or abdominal pain NEUROLOGICAL: No headaches or weakness ENDOCRINE: No cold or heat intolerance GENITOURINARY: No urgency or frequency of urination MUSCULOSKELETAL: No back pain or joint pain LYMPHATICS: No enlarged lymph nodes PSYCHIATRIC: No anxiety or depression Assessment and Plan Assessmemt and Plan Problems Medical Problems: (1) Acute on chronic renal failure Status: Acute (2) Dizziness Status: Acute (3) Hypotension Status: Acute Comment Review of Relevant I have reviewed the following items le (where applicable) has been applied. Labs Laboratory Tests Test 06/09/19 15:34 06/09/19 15:50 06/09/19 16:30 06/10/19 04:00 Glucose (Fingerstick) 139 mg/dL (70-99) White Blood Count 10.2 x10^3/uL (4.0-11.0) 9.3 x10^3/uL (4.0-11.0) Red Blood Count 4.65 x10^6/uL (3.50-5.40) 4.48 x10^6/uL (3.50-5.40) Hemoglobin 14.1 g/dL (12.0-15.5) 13.4 g/dL (12.0-15.5) Hematocrit 40.7 % (36.0-47.0) 40.6 % (36.0-47.0) Mean Corpuscular Volume 87 fL (79-100) 91 fL (79-100) Mean Corpuscular Hemoglobin 30 pg (25-35) 30 pg (25-35) Mean Corpuscular Hemoglobin Concent 35 g/dL (31-37) 33 g/dL (31-37) Red Cell Distribution Width 13.7 % (11.5-14.5) 13.7 % (11.5-14.5) Platelet Count 388 x10^3/uL (140-400) 292 x10^3/uL (140-400) Neutrophils (%) (Auto) 78 % (31-73) 75 % (31-73) Lymphocytes (%) (Auto) 12 % (24-48) 15 % (24-48) Monocytes (%) (Auto) 8 % (0-9) 9 % (0-9) Eosinophils (%) (Auto) 1 % (0-3) 2 % (0-3) Basophils (%) (Auto) 0 % (0-3) 0 % (0-3) Neutrophils # (Auto) 8.0 x10^3/uL (1.8-7.7) 6.9 x10^3/uL (1.8-7.7) Lymphocytes # (Auto) 1.3 x10^3/uL (1.0-4.8) 1.4 x10^3/uL (1.0-4.8) Monocytes # (Auto) 0.8 x10^3/uL (0.0-1.1) 0.8 x10^3/uL (0.0-1.1) Eosinophils # (Auto) 0.1 x10^3/uL (0.0-0.7) 0.1 x10^3/uL (0.0-0.7) Basophils # (Auto) 0.0 x10^3/uL (0.0-0.2) 0.0 x10^3/uL (0.0-0.2) Prothrombin Time 13.7 SEC (11.7-14.0) Prothromb Time International Ratio 1.1 (0.8-1.1) Activated Partial Thromboplast Time 27 SEC (24-38) Sodium Level 128 mmol/L (136-145) 126 mmol/L (136-145) Potassium Level 5.3 mmol/L (3.5-5.1) 4.8 mmol/L (3.5-5.1) Chloride Level 88 mmol/L (98-107) 91 mmol/L (98-107) Carbon Dioxide Level 21 mmol/L (21-32) 17 mmol/L (21-32) Anion Gap 19 (6-14) 18 (6-14) Blood Urea Nitrogen 120 mg/dL (7-20) 128 mg/dL (7-20) Creatinine 8.2 mg/dL (0.6-1.0) 7.7 mg/dL (0.6-1.0) Estimated GFR (Cockcroft-Gault) 4.8 5.1 BUN/Creatinine Ratio 15 (6-20) Glucose Level 120 mg/dL (70-99) 118 mg/dL (70-99) Calcium Level 9.2 mg/dL (8.5-10.1) 8.5 mg/dL (8.5-10.1) Magnesium Level 3.6 mg/dL (1.8-2.4) Total Bilirubin 0.3 mg/dL (0.2-1.0) Aspartate Amino Transf (AST/SGOT) 14 U/L (15-37) Alanine Aminotransferase (ALT/SGPT) 19 U/L (14-59) Alkaline Phosphatase 123 U/L (46-116) Creatine Kinase 48 U/L (26-192) Creatine Kinase MB (Mass) 1.1 ng/mL (0.0-3.6) Creatine Kinase MB Relative Index % (0-4) Troponin I Quantitative < 0.017 ng/mL (0.000-0.055) AI-Sdb-B-Type Natriuretic Peptide 829 pg/mL (0-124) Total Protein 7.0 g/dL (6.4-8.2) Albumin 3.4 g/dL (3.4-5.0) Albumin/Globulin Ratio 0.9 (1.0-1.7) Thyroid Stimulating Hormone (TSH) 0.725 uIU/mL (0.358-3.74) Phosphorus Level 8.9 mg/dL (2.6-4.7) Laboratory Tests Test 06/09/19 15:34 06/09/19 15:50 06/09/19 16:30 06/10/19 04:00 Glucose (Fingerstick) 139 mg/dL (70-99) White Blood Count 10.2 x10^3/uL (4.0-11.0) 9.3 x10^3/uL (4.0-11.0) Red Blood Count 4.65 x10^6/uL (3.50-5.40) 4.48 x10^6/uL (3.50-5.40) Hemoglobin 14.1 g/dL (12.0-15.5) 13.4 g/dL (12.0-15.5) Hematocrit 40.7 % (36.0-47.0) 40.6 % (36.0-47.0) Mean Corpuscular Volume 87 fL (79-100) 91 fL (79-100) Mean Corpuscular Hemoglobin 30 pg (25-35) 30 pg (25-35) Mean Corpuscular Hemoglobin Concent 35 g/dL (31-37) 33 g/dL (31-37) Red Cell Distribution Width 13.7 % (11.5-14.5) 13.7 % (11.5-14.5) Platelet Count 388 x10^3/uL (140-400) 292 x10^3/uL (140-400) Neutrophils (%) (Auto) 78 % (31-73) 75 % (31-73) Lymphocytes (%) (Auto) 12 % (24-48) 15 % (24-48) Monocytes (%) (Auto) 8 % (0-9) 9 % (0-9) Eosinophils (%) (Auto) 1 % (0-3) 2 % (0-3) Basophils (%) (Auto) 0 % (0-3) 0 % (0-3) Neutrophils # (Auto) 8.0 x10^3/uL (1.8-7.7) 6.9 x10^3/uL (1.8-7.7) Lymphocytes # (Auto) 1.3 x10^3/uL (1.0-4.8) 1.4 x10^3/uL (1.0-4.8) Monocytes # (Auto) 0.8 x10^3/uL (0.0-1.1) 0.8 x10^3/uL (0.0-1.1) Eosinophils # (Auto) 0.1 x10^3/uL (0.0-0.7) 0.1 x10^3/uL (0.0-0.7) Basophils # (Auto) 0.0 x10^3/uL (0.0-0.2) 0.0 x10^3/uL (0.0-0.2) Prothrombin Time 13.7 SEC (11.7-14.0) Prothromb Time International Ratio 1.1 (0.8-1.1) Activated Partial Thromboplast Time 27 SEC (24-38) Sodium Level 128 mmol/L (136-145) 126 mmol/L (136-145) Potassium Level 5.3 mmol/L (3.5-5.1) 4.8 mmol/L (3.5-5.1) Chloride Level 88 mmol/L (98-107) 91 mmol/L (98-107) Carbon Dioxide Level 21 mmol/L (21-32) 17 mmol/L (21-32) Anion Gap 19 (6-14) 18 (6-14) Blood Urea Nitrogen 120 mg/dL (7-20) 128 mg/dL (7-20) Creatinine 8.2 mg/dL (0.6-1.0) 7.7 mg/dL (0.6-1.0) Estimated GFR (Cockcroft-Gault) 4.8 5.1 BUN/Creatinine Ratio 15 (6-20) Glucose Level 120 mg/dL (70-99) 118 mg/dL (70-99) Calcium Level 9.2 mg/dL (8.5-10.1) 8.5 mg/dL (8.5-10.1) Magnesium Level 3.6 mg/dL (1.8-2.4) Total Bilirubin 0.3 mg/dL (0.2-1.0) Aspartate Amino Transf (AST/SGOT) 14 U/L (15-37) Alanine Aminotransferase (ALT/SGPT) 19 U/L (14-59) Alkaline Phosphatase 123 U/L (46-116) Creatine Kinase 48 U/L (26-192) Creatine Kinase MB (Mass) 1.1 ng/mL (0.0-3.6) Creatine Kinase MB Relative Index % (0-4) Troponin I Quantitative < 0.017 ng/mL (0.000-0.055) PK-Mbq-C-Type Natriuretic Peptide 829 pg/mL (0-124) Total Protein 7.0 g/dL (6.4-8.2) Albumin 3.4 g/dL (3.4-5.0) Albumin/Globulin Ratio 0.9 (1.0-1.7) Thyroid Stimulating Hormone (TSH) 0.725 uIU/mL (0.358-3.74) Phosphorus Level 8.9 mg/dL (2.6-4.7) Medications Current Medications Ondansetron HCl (Zofran) 4 mg 1X ONCE IV Last administered on 06/09/19at 17:11; Start 06/09/19 at 17:15; Stop 06/09/19 at 17:16; Status DC Meclizine HCl (Antivert) 25 mg 1X ONCE PO Last administered on 06/09/19at 17:11; Start 06/09/19 at 17:15; Stop 06/09/19 at 17:16; Status DC Ondansetron HCl (Zofran) 4 mg PRN Q8HRS PRN IV NAUSEA/VOMITING; Start 06/09/19 at 18:00; Stop 06/10/19 at 08:50; Status DC Sodium Chloride 1,000 ml @ 125 mls/hr 1X ONCE IV Last administered on 06/09/19at 18:42; Start 06/09/19 at 18:00; Stop 06/10/19 at 01:59; Status DC Sodium Chloride 1,000 ml @ 100 mls/hr 1X ONCE IV Last administered on 06/09/19at 19:30; Start 06/09/19 at 19:30; Stop 06/10/19 at 05:29; Status DC Nicotine (Nicoderm Cq 14mg) 1 patch PRN DAILY PRN TD SMOKING CESSATION; Start 06/09/19 at 20:15 Acetaminophen (Tylenol) 650 mg PRN Q6HRS PRN PO MILD PAIN 1-3 Last administered on 06/10/19at 03:57; Start 06/10/19 at 03:30; Stop 06/10/19 at 08:52; Status DC Ondansetron HCl (Zofran) 4 mg PRN Q6HRS PRN IV NAUSEA/VOMITING; Start 06/10/19 at 09:00 Acetaminophen (Tylenol) 500 mg PRN Q6HRS PRN PO MILD PAIN / TEMP; Start 06/10/19 at 09:00 Acetaminophen/ Codeine Phosphate (Tylenol #3) 1 tab PRN Q6HRS PRN PO MODERATE PAIN; Start 06/10/19 at 09:00 Meclizine HCl (Antivert) 25 mg PRN Q6HRS PRN PO DIZZINESS; Start 06/10/19 at 09:00 Cyclobenzaprine HCl (Flexeril) 10 mg TID PO ; Start 06/10/19 at 09:00 Levothyroxine Sodium (Synthroid) 137 mcg DAILY06 PO ; Start 06/10/19 at 09:00 Sodium Chloride 1,000 ml @ 100 mls/hr Q10H IV Last administered on 06/10/19at 10:50; Start 06/10/19 at 09:00 Lidocaine/Sodium Bicarbonate (Buffered Lidocaine 1%) 3 ml STK-MED ONCE .ROUTE ; Start 06/10/19 at 12:10; Stop 06/10/19 at 12:11; Status DC Active Scripts Active Reported Lisinopril 40 Mg Tablet 1 Tab PO DAILY Cyclobenzaprine Hcl 10 Mg Tablet 1 Tab PO TID Atenolol 50 Mg Tablet 1 Tab PO DAILY Levothyroxine Sodium 137 Mcg Tablet 1 Tab PO DAILY Meloxicam 7.5 Mg Tablet 7.5 Mg PO DAILY Vitals/I & O Vital Sign - Last 24 Hours 06/09/19 06/09/19 06/09/19 06/09/19 15:35 15:37 16:05 17:40 Temp 97.9 97.9 Pulse 56 61 57 68 Resp 20 20 16 22 B/P (MAP) 106/51 (69) Pulse Ox 97 99 97 96 O2 Delivery Room Air 06/09/19 06/09/19 06/09/19 06/09/19 18:10 18:40 19:00 19:30 Temp 97.6 97.6 Pulse 72 62 56 Resp 19 24 18 B/P (MAP) 93/47 (62) Pulse Ox 96 97 99 O2 Delivery Room Air 06/09/19 06/10/19 06/10/19 06/10/19 23:00 03:00 07:00 08:00 Temp 98.1 98.0 98.2 98.1 98.0 98.2 Pulse 75 61 62 Resp 16 18 18 B/P (MAP) 93/50 (64) 90/45 (60) 121/47 (71) Pulse Ox 95 98 97 O2 Delivery Room Air Room Air 06/10/19 11:00 Temp 98.2 98.2 Pulse 65 Resp 18 B/P (MAP) 119/44 (69) Pulse Ox 98 O2 Delivery Room Air Intake and Output 06/09/19 06/09/19 06/10/19 15:00 23:00 07:00 Intake Total 240 ml 120 ml Balance 240 ml 120 ml JARET GLASS MD Jun 10, 2019 12:23
[2019-06-10] MEDS ORDERED: LIDOCAINE WITH 8.4% SOD BICARB 3 ML DISP.SYRIN. INJ ONE (12:30)
--- NOTE | 2019-06-10 14:57 | RAD ---
BRAIN W/O CONTRAST History: Persistent dizziness. Weakness. Technique: Multiplanar, multi sequential MR imaging was performed of the brain without contrast. Comparison: June 09, [address] Findings: No acute infarct. No intracranial hemorrhage. No mass effect. No hydrocephalus. Extra-axial spaces are unremarkable. Foci of T2/FLAIR hyperintensities within the hemispheric white matter, most often due to moderate sequela of chronic microvascular ischemia. Prominent perivascular spaces also noted within the bilateral centrum semiovale. Calcified left temporal region dural-based lesion, likely meningioma, unchanged. Postoperative changes left globe. Otherwise, the imaged orbits are unremarkable. Secretions within the right sphenoid sinus. Mastoid air cells are clear. Chronic left medial orbital wall small defect. Impression: 1. No acute intracranial abnormality. 2. Moderate nonspecific white matter changes, most often due to chronic microvascular ischemia. Electronically signed by: Cl Young DO (06/10/2019 2:55 PM) [id number]
[2019-06-10] MEDS: LOPERAMIDE 2 MG CAPSULE PO PRN ×4 (15:12→23:41)
[2019-06-10] MEDS ORDERED: IV NORMAL SALINE 1000ML BAG 1,000 ML IV PRN ×2 (15:39)
[2019-06-10] MEDS ORDERED: diphenhydrAMINE 50 MG/ML VIAL IV PRN ×2 (15:45)
[2019-06-10] MEDS ORDERED: DIALYSIS PATIENT. MC PRN (15:45)
--- NOTE | 2019-06-10 15:47 | RAD ---
Procedure: Temporary hemodialysis catheter placement under fluoroscopy 06/10/2019 Clinical Indication: Renal failure Contrast: None Total fluoroscopy time: 0.2 minutes Dose area product: 0.2 Gycm2 Sterility: All elements of maximal sterile barrier technique including the use of a cap, mask, sterile gown, sterile gloves, large sterile sheet, appropriate hand hygiene, and 2% chlorhexidine for cutaneous antisepsis (or acceptable alternative antiseptic per current guidelines) were followed for this procedure. Consent: The procedure was explained in its entirety to the patient or the patients designated technical sales representative by a member of the treatment team, including a discussion of the risks, benefits and commonly accepted alternatives to the procedure, as well as the expected consequences of no therapy whatsoever. Discussion of the risks included, but was not limited to, those that are most frequent and those that are rare but possibly severe or life-threatening, as well as the possibility of unforeseen complications. Technique and Findings: Following informed consent, the patient was prepped and draped in the usual sterile fashion. Ultrasound interrogation of the right neck revealed patency and compressibility of the right internal jugular vein. A 21-gauge micropuncture needle was used to gain access to this vein after 1% Lidocaine was used to achieve local anesthesia. A hardcopy ultrasound image was recorded. The needle was exchanged over a wire for serial dilators followed by a 20 temporary hemodialysis catheter which was deployed under fluoroscopic guidance such that the distal tip resided in the mid right atrium. The catheter flow rates were assessed manually and found to be excellent. The final position of the catheter was confirmed by fluoroscopy, with tip at the cavoatrial junction. The catheter was then flushed, and sutured to the skin. Impression: Ultrasound and fluoroscopic guided placement of a temporary hemodialysis catheter
--- NOTE | 2019-06-10 15:47 | PDOC2 ---
NEUROLOGY CONSULT Date of Admission Date of Admission DATE: 06/10/19 TIME: 15:22 Reason for Consult Reason for Consult: IMPRESSION: Metabolic encephalopathy. Persistent dizziness for 4 days before admission. LOC x 6 times in 2 days. Falls. Hyponatremia, Na+ 126. Hyperkalemia. Hypocholoremia Cl- 88 Acute renal failure. HTN. Left temporal meningioma likely, calcified. No evidence of acute CVA this time. RECOMMENDATIONS/PLAN: EEG. Treat medical diseases. Correct electrolytes imbalances. Please consult nephrology for renal failure. Lab: see orders. Discussed with her daughter at bedside on 06/10/19. HISTORY OF THE PRESENT ILLNESS: This is a 74-yea-old female patient developed symptoms of mental status changes, persistent dizziness for 4 days, LOC multiple time and falls. She was brought to the ER of [facility] and was eventually admitted into hospital for further evaluation. Her was found to have acute renal failure with electrolytes abnormalities. Past Medical History Cardiovascular: HTN CENTRAL NERVOUS SYSTEM: CVA GI: No pertinent hx Heme/Onc: No pertinent hx ENT: No pertinent hx Renal/: No pertinent hx Endocrine: No pertinent hx Family History Non contributory. PAST SURGERY HISTORY: No major surgery recently. ALLERGY: Unknown MEDICATIONS: Refer to [facility] SOCIAL HISTORY: Lives alone at home. Denies drinking, and illicit drug use. She smokes 1 pack of cigarettes a day for many years. REVIEW OF SYSTEMS: Constitutional: No malnutrition, weight loss, cachexia. Head: No traumatic brain or head injury. Skin: No edema, or rash. Ear: No infection. Eyes: No vision loss or color blindness. Nose: No bleeding or purulent discharges. Hearing: No hearing decrease. Neck: No injury. Breast: No history of cancer, masses,or discharges. Cardiac: HTN. Pulmonary: No pneumonia. GI: No GI ulcer, GI bleeding. Urinary/genital: UTI. Endocrinologic: No cousin face, craniofacial dysmorphism. Skeletomuscular: No muscular atrophy, deformity. Neurological: see HP. Psychiatric: Denies drug use/abuse. Otherwise, not [id number] review of systems. PHYSICAL EXAMINATION: General appearance is in subacute distress. HEENT: Normocephalic and nontraumatic. Eyes, nose, ears, and throat are unremarkable. Neck is supple. No lymphadenopathy. No crepitus. Cardiovascular: S1, S2, regular rate and rhythm. Pulmonary: Clear to auscultation bilaterally. Abdomen: Bowel sounds are positive. Abdomen is soft, nontender, and nondistended. Extremities: No rash, lesions, or edema. No restriction of range of motion NEUROLOGICAL EXAMINATION: Awake. Partially oriented to time, place and person. PERRL. EOMI. CN: no focal findings. Muscle tone: within normal. Muscle strength: 5- DTR: 2 UE, 0-1 at knee. Plantar reflex: Flexor response bilaterally Gait: not examined in bed. Sensory exam: no abnormal findings. No cerebellar signs elicited. F-T-N test fine. Current Medications Current Medications Current Medications Ondansetron HCl (Zofran) 4 mg 1X ONCE IV Last administered on 06/09/19 17:11; Start 06/09/19 at 17:15; Stop 06/09/19 at 17:16; Status DC Meclizine HCl (Antivert) 25 mg 1X ONCE PO Last administered on 06/09/19at 17:11; Start 06/09/19 at 17:15; Stop 06/09/19 at 17:16; Status DC Ondansetron HCl (Zofran) 4 mg PRN Q8HRS PRN IV NAUSEA/VOMITING; Start 06/09/19 at 18:00; Stop 06/10/19 at 08:50; Status DC Sodium Chloride 1,000 ml @ 125 mls/hr 1X ONCE IV Last administered on 06/09/19at 18:42; Start 06/09/19 at 18:00; Stop 06/10/19 at 01:59; Status DC Sodium Chloride 1,000 ml @ 100 mls/hr 1X ONCE IV Last administered on 06/09/19at 19:30; Start 06/09/19 at 19:30; Stop 06/10/19 at 05:29; Status DC Nicotine (Nicoderm Cq 14mg) 1 patch PRN DAILY PRN TD SMOKING CESSATION; Start 06/09/19 at 20:15 Acetaminophen (Tylenol) 650 mg PRN Q6HRS PRN PO MILD PAIN 1-3 Last administered on 06/10/19at 03:57; Start 06/10/19 at 03:30; Stop 06/10/19 at 08:52; Status DC Ondansetron HCl (Zofran) 4 mg PRN Q6HRS PRN IV NAUSEA/VOMITING; Start 06/10/19 at 09:00 Acetaminophen (Tylenol) 500 mg PRN Q6HRS PRN PO MILD PAIN / TEMP; Start 06/10/19 at 09:00 Acetaminophen/ Codeine Phosphate (Tylenol #3) 1 tab PRN Q6HRS PRN PO MODERATE PAIN; Start 06/10/19 at 09:00 Meclizine HCl (Antivert) 25 mg PRN Q6HRS PRN PO DIZZINESS; Start 06/10/19 at 09:00 Cyclobenzaprine HCl (Flexeril) 10 mg TID PO ; Start 06/10/19 at 09:00 Levothyroxine Sodium (Synthroid) 137 mcg DAILY06 PO ; Start 06/10/19 at 09:00 Sodium Chloride 1,000 ml @ 100 mls/hr Q10H IV Last administered on 06/10/19at 10:50; Start 06/10/19 at 09:00 Lidocaine/Sodium Bicarbonate (Buffered Lidocaine 1%) 3 ml STK-MED ONCE .ROUTE ; Start 06/10/19 at 12:10; Stop 06/10/19 at 12:11; Status DC Lidocaine/Sodium Bicarbonate (Buffered Lidocaine 1%) 6 ml 1X ONCE INJ Last administered on 06/10/19at 12:30; Start 06/10/19 at 12:30; Stop 06/10/19 at 12:31; Status DC Loperamide HCl (Imodium) 2 mg PRN Q15MIN PRN PO DIARRHEA Last administered on 06/10/19at 15:12; Start 06/10/19 at 15:15 Active Scripts Active Reported Lisinopril 40 Mg Tablet 1 Tab PO DAILY Cyclobenzaprine Hcl 10 Mg Tablet 1 Tab PO TID Atenolol 50 Mg Tablet 1 Tab PO DAILY Levothyroxine Sodium 137 Mcg Tablet 1 Tab PO DAILY Meloxicam 7.5 Mg Tablet 7.5 Mg PO DAILY Allergies Allergies: Allergies Coded Allergies Type Severity Reaction Last Updated Verified No Known Drug Allergies 06/09/19 No ROS Review of System The patient denies any associated fevers, chills, headache, ear pain, rhinorrhea, sore throat, stiff neck, productive cough, chest pain, shortness of breath, back or flank pain, abdominal pain, nausea, vomiting, diarrhea, constipation, dysuria, rash, numbness, weakness, tingling, incontinence, difficulty ambulating, or diaphoresis. Physical Exam Physical Exam General: Well developed, well nourished, no acute distress, well appearing HEENT: Pupils equally round and reactive to light, EOMI, no discharge, normal conjunctiva Neck: Supple, no nuchal rigidity, no JVD, trachea midline, no tenderness Cardiac: RRR, no murmurs, no gallops, no rubs Chest/Lungs: CTAB, no wheeze, no rhonchi, no crackles Abdomen: soft, non-distended, no guarding, no peritoneal signs, non-tender Back: No tenderness Extremities: no edema, pulses intact, non-tender,capillary refill <3 sec bilateral upper and lower extremities, Neuro: Alert and oriented x 4, no focal deficits, normal speech Vitals Vitals: Vital Signs Date Time Temp Pulse Resp B/P (MAP) Pulse Ox O2 Delivery O2 Flow Rate FiO2 06/10/19 15:00 98.2 64 18 98/43 (61) 98 Room Air 98.2 Labs Labs Laboratory Tests Test 06/09/19 15:34 06/09/19 15:50 06/09/19 16:30 06/09/19 23:30 Glucose (Fingerstick) 139 mg/dL (70-99) White Blood Count 10.2 x10^3/uL (4.0-11.0) Red Blood Count 4.65 x10^6/uL (3.50-5.40) Hemoglobin 14.1 g/dL (12.0-15.5) Hematocrit 40.7 % (36.0-47.0) Mean Corpuscular Volume 87 fL (79-100) Mean Corpuscular Hemoglobin 30 pg (25-35) Mean Corpuscular Hemoglobin Concent 35 g/dL (31-37) Red Cell Distribution Width 13.7 % (11.5-14.5) Platelet Count 388 x10^3/uL (140-400) Neutrophils (%) (Auto) 78 % (31-73) Lymphocytes (%) (Auto) 12 % (24-48) Monocytes (%) (Auto) 8 % (0-9) Eosinophils (%) (Auto) 1 % (0-3) Basophils (%) (Auto) 0 % (0-3) Neutrophils # (Auto) 8.0 x10^3/uL (1.8-7.7) Lymphocytes # (Auto) 1.3 x10^3/uL (1.0-4.8) Monocytes # (Auto) 0.8 x10^3/uL (0.0-1.1) Eosinophils # (Auto) 0.1 x10^3/uL (0.0-0.7) Basophils # (Auto) 0.0 x10^3/uL (0.0-0.2) Prothrombin Time 13.7 SEC (11.7-14.0) Prothromb Time International Ratio 1.1 (0.8-1.1) Activated Partial Thromboplast Time 27 SEC (24-38) Sodium Level 128 mmol/L (136-145) Potassium Level 5.3 mmol/L (3.5-5.1) Chloride Level 88 mmol/L (98-107) Carbon Dioxide Level 21 mmol/L (21-32) Anion Gap 19 (6-14) Blood Urea Nitrogen 120 mg/dL (7-20) Creatinine 8.2 mg/dL (0.6-1.0) Estimated GFR (Cockcroft-Gault) 4.8 BUN/Creatinine Ratio 15 (6-20) Glucose Level 120 mg/dL (70-99) Calcium Level 9.2 mg/dL (8.5-10.1) Magnesium Level 3.6 mg/dL (1.8-2.4) Total Bilirubin 0.3 mg/dL (0.2-1.0) Aspartate Amino Transf (AST/SGOT) 14 U/L (15-37) Alanine Aminotransferase (ALT/SGPT) 19 U/L (14-59) Alkaline Phosphatase 123 U/L (46-116) Creatine Kinase 48 U/L (26-192) Creatine Kinase MB (Mass) 1.1 ng/mL (0.0-3.6) Creatine Kinase MB Relative Index % (0-4) Troponin I Quantitative < 0.017 ng/mL (0.000-0.055) MF-Rld-R-Type Natriuretic Peptide 829 pg/mL (0-124) Total Protein 7.0 g/dL (6.4-8.2) Albumin 3.4 g/dL (3.4-5.0) Albumin/Globulin Ratio 0.9 (1.0-1.7) Thyroid Stimulating Hormone (TSH) 0.725 uIU/mL (0.358-3.74) Clostridium difficile Toxin B Gene Negative (Negative) Test 06/10/19 04:00 White Blood Count 9.3 x10^3/uL (4.0-11.0) Red Blood Count 4.48 x10^6/uL (3.50-5.40) Hemoglobin 13.4 g/dL (12.0-15.5) Hematocrit 40.6 % (36.0-47.0) Mean Corpuscular Volume 91 fL (79-100) Mean Corpuscular Hemoglobin 30 pg (25-35) Mean Corpuscular Hemoglobin Concent 33 g/dL (31-37) Red Cell Distribution Width 13.7 % (11.5-14.5) Platelet Count 292 x10^3/uL (140-400) Neutrophils (%) (Auto) 75 % (31-73) Lymphocytes (%) (Auto) 15 % (24-48) Monocytes (%) (Auto) 9 % (0-9) Eosinophils (%) (Auto) 2 % (0-3) Basophils (%) (Auto) 0 % (0-3) Neutrophils # (Auto) 6.9 x10^3/uL (1.8-7.7) Lymphocytes # (Auto) 1.4 x10^3/uL (1.0-4.8) Monocytes # (Auto) 0.8 x10^3/uL (0.0-1.1) Eosinophils # (Auto) 0.1 x10^3/uL (0.0-0.7) Basophils # (Auto) 0.0 x10^3/uL (0.0-0.2) Sodium Level 126 mmol/L (136-145) Potassium Level 4.8 mmol/L (3.5-5.1) Chloride Level 91 mmol/L (98-107) Carbon Dioxide Level 17 mmol/L (21-32) Anion Gap 18 (6-14) Blood Urea Nitrogen 128 mg/dL (7-20) Creatinine 7.7 mg/dL (0.6-1.0) Estimated GFR (Cockcroft-Gault) 5.1 Glucose Level 118 mg/dL (70-99) Calcium Level 8.5 mg/dL (8.5-10.1) Phosphorus Level 8.9 mg/dL (2.6-4.7) Laboratory Tests Test 06/09/19 15:34 06/09/19 15:50 06/09/19 16:30 06/09/19 23:30 Glucose (Fingerstick) 139 mg/dL (70-99) White Blood Count 10.2 x10^3/uL (4.0-11.0) Red Blood Count 4.65 x10^6/uL (3.50-5.40) Hemoglobin 14.1 g/dL (12.0-15.5) Hematocrit 40.7 % (36.0-47.0) Mean Corpuscular Volume 87 fL (79-100) Mean Corpuscular Hemoglobin 30 pg (25-35) Mean Corpuscular Hemoglobin Concent 35 g/dL (31-37) Red Cell Distribution Width 13.7 % (11.5-14.5) Platelet Count 388 x10^3/uL (140-400) Neutrophils (%) (Auto) 78 % (31-73) Lymphocytes (%) (Auto) 12 % (24-48) Monocytes (%) (Auto) 8 % (0-9) Eosinophils (%) (Auto) 1 % (0-3) Basophils (%) (Auto) 0 % (0-3) Neutrophils # (Auto) 8.0 x10^3/uL (1.8-7.7) Lymphocytes # (Auto) 1.3 x10^3/uL (1.0-4.8) Monocytes # (Auto) 0.8 x10^3/uL (0.0-1.1) Eosinophils # (Auto) 0.1 x10^3/uL (0.0-0.7) Basophils # (Auto) 0.0 x10^3/uL (0.0-0.2) Prothrombin Time 13.7 SEC (11.7-14.0) Prothromb Time International Ratio 1.1 (0.8-1.1) Activated Partial Thromboplast Time 27 SEC (24-38) Sodium Level 128 mmol/L (136-145) Potassium Level 5.3 mmol/L (3.5-5.1) Chloride Level 88 mmol/L (98-107) Carbon Dioxide Level 21 mmol/L (21-32) Anion Gap 19 (6-14) Blood Urea Nitrogen 120 mg/dL (7-20) Creatinine 8.2 mg/dL (0.6-1.0) Estimated GFR (Cockcroft-Gault) 4.8 BUN/Creatinine Ratio 15 (6-20) Glucose Level 120 mg/dL (70-99) Calcium Level 9.2 mg/dL (8.5-10.1) Magnesium Level 3.6 mg/dL (1.8-2.4) Total Bilirubin 0.3 mg/dL (0.2-1.0) Aspartate Amino Transf (AST/SGOT) 14 U/L (15-37) Alanine Aminotransferase (ALT/SGPT) 19 U/L (14-59) Alkaline Phosphatase 123 U/L (46-116) Creatine Kinase 48 U/L (26-192) Creatine Kinase MB (Mass) 1.1 ng/mL (0.0-3.6) Creatine Kinase MB Relative Index % (0-4) Troponin I Quantitative < 0.017 ng/mL (0.000-0.055) DC-Kmf-Y-Type Natriuretic Peptide 829 pg/mL (0-124) Total Protein 7.0 g/dL (6.4-8.2) Albumin 3.4 g/dL (3.4-5.0) Albumin/Globulin Ratio 0.9 (1.0-1.7) Thyroid Stimulating Hormone (TSH) 0.725 uIU/mL (0.358-3.74) Clostridium difficile Toxin B Gene Negative (Negative) Test 06/10/19 04:00 White Blood Count 9.3 x10^3/uL (4.0-11.0) Red Blood Count 4.48 x10^6/uL (3.50-5.40) Hemoglobin 13.4 g/dL (12.0-15.5) Hematocrit 40.6 % (36.0-47.0) Mean Corpuscular Volume 91 fL (79-100) Mean Corpuscular Hemoglobin 30 pg (25-35) Mean Corpuscular Hemoglobin Concent 33 g/dL (31-37) Red Cell Distribution Width 13.7 % (11.5-14.5) Platelet Count 292 x10^3/uL (140-400) Neutrophils (%) (Auto) 75 % (31-73) Lymphocytes (%) (Auto) 15 % (24-48) Monocytes (%) (Auto) 9 % (0-9) Eosinophils (%) (Auto) 2 % (0-3) Basophils (%) (Auto) 0 % (0-3) Neutrophils # (Auto) 6.9 x10^3/uL (1.8-7.7) Lymphocytes # (Auto) 1.4 x10^3/uL (1.0-4.8) Monocytes # (Auto) 0.8 x10^3/uL (0.0-1.1) Eosinophils # (Auto) 0.1 x10^3/uL (0.0-0.7) Basophils # (Auto) 0.0 x10^3/uL (0.0-0.2) Sodium Level 126 mmol/L (136-145) Potassium Level 4.8 mmol/L (3.5-5.1) Chloride Level 91 mmol/L (98-107) Carbon Dioxide Level 17 mmol/L (21-32) Anion Gap 18 (6-14) Blood Urea Nitrogen 128 mg/dL (7-20) Creatinine 7.7 mg/dL (0.6-1.0) Estimated GFR (Cockcroft-Gault) 5.1 Glucose Level 118 mg/dL (70-99) Calcium Level 8.5 mg/dL (8.5-10.1) Phosphorus Level 8.9 mg/dL (2.6-4.7) DAPHNEY BROWNLEE MD Jun 10, 2019 15:47
[2019-06-11] MEDS: IV NORMAL SALINE 1000ML BAG 1,000 ML IV SCH ×2 (05:00→14:39)
[2019-06-11 05:15] LABS: CALCIUM 7.9 mg/dL (8.5-10.1); CREATININE 4.1 mg/dL (0.6-1.0); GFR 10.6; POTASSIUM 4.1 mmol/L (3.5-5.1)
[2019-06-11] MEDS: LEVOTHYROXINE 137 MCG TABLET PO SCH (06:00)
[2019-06-11 07:00] VITALS: BP 125/62
[2019-06-11] MEDS ORDERED: IV NORMAL SALINE 1000ML BAG 1,000 ML IV PRN ×2 (07:36)
[2019-06-11] MEDS ORDERED: DIALYSIS PATIENT. MC PRN ×2 (07:45)
[2019-06-11] MEDS: CYCLOBENZAPRINE 10 MG TABLET. PO SCH ×3 (08:58→20:37)
--- NOTE | 2019-06-11 09:19 | PDOC ---
PROGRESS NOTES Chief Complaint Chief Complaint AK I on CK D-stage-5 Diarrhea �4 days Emesis times few days Hypertension, controlled Hyponatremia is smoker History of Present Illness History of Present Illness Had her first run of dialysis yesterday 06/10/19 and tolerated well Creatinine 4.1 from 7 Still oliguric Very hard of hearing, Dtr Not bedside Neurology has ordered EEG for some confusion but she seems baseline-EEG ordered but I don't think it has been done yet Plan: for second run dialysis today by renal (hopefully temporary HD only) Awaiting hearing aid from daughter EEG ordered by neuro Discussed with RN at bedside Vitals Vitals Vital Signs Date Time Temp Pulse Resp B/P (MAP) Pulse Ox O2 Delivery O2 Flow Rate FiO2 06/11/19 07:00 98.2 67 18 125/62 (83) 98 Room Air 98.2 Physical Exam General: Alert, Cooperative, No acute distress Heart: Regular rate, Normal S1, Normal S2, No murmurs Lungs: Clear Abdomen: Normal bowel sounds, Soft Extremities: No cyanosis, No edema, Normal pulses Skin: No rashes, No breakdown, No significant lesion Labs LABS Laboratory Tests Test 06/10/19 13:55 06/11/19 04:20 Hepatitis B Surface Antigen Nonreactive (Nonreactive) Hepatitis B Surface Antibody, Quant <3.1 mIU/mL (Immunity>9.9) Hepatitis B Core Total Antibody Nonreactive (Nonreactive) Sodium Level 138 mmol/L (136-145) Potassium Level 4.1 mmol/L (3.5-5.1) Chloride Level 101 mmol/L (98-107) Carbon Dioxide Level 29 mmol/L (21-32) Anion Gap 8 (6-14) Blood Urea Nitrogen 50 mg/dL (7-20) Creatinine 4.1 mg/dL (0.6-1.0) Estimated GFR (Cockcroft-Gault) 10.6 Glucose Level 85 mg/dL (70-99) Calcium Level 7.9 mg/dL (8.5-10.1) Review of Systems Review of Systems A 14 point ROS was completed with the following noted as positive: Other systems reviewed and negative. \CONSTITUTIONAL: No fever or chills EYES: No recent changes SKIN: No rash or itching CARDIOVASCULAR: No chest pain, syncope, palpitations, or edema RESPIRATORY: No SOB or cough GASTROINTESTINAL: No nausea, vomiting or abdominal pain NEUROLOGICAL: No headaches or weakness ENDOCRINE: No cold or heat intolerance GENITOURINARY: No urgency or frequency of urination MUSCULOSKELETAL: No back pain or joint pain LYMPHATICS: No enlarged lymph nodes PSYCHIATRIC: No anxiety or depression Assessment and Plan Assessmemt and Plan Problems Medical Problems: (1) Acute on chronic renal failure Status: Acute (2) Dizziness Status: Acute (3) Hypotension Status: Acute Comment Review of Relevant I have reviewed the following items le (where applicable) has been applied. Labs Laboratory Tests Test 06/09/19 15:34 06/09/19 15:50 06/09/19 16:30 06/09/19 23:30 Glucose (Fingerstick) 139 mg/dL (70-99) White Blood Count 10.2 x10^3/uL (4.0-11.0) Red Blood Count 4.65 x10^6/uL (3.50-5.40) Hemoglobin 14.1 g/dL (12.0-15.5) Hematocrit 40.7 % (36.0-47.0) Mean Corpuscular Volume 87 fL (79-100) Mean Corpuscular Hemoglobin 30 pg (25-35) Mean Corpuscular Hemoglobin Concent 35 g/dL (31-37) Red Cell Distribution Width 13.7 % (11.5-14.5) Platelet Count 388 x10^3/uL (140-400) Neutrophils (%) (Auto) 78 % (31-73) Lymphocytes (%) (Auto) 12 % (24-48) Monocytes (%) (Auto) 8 % (0-9) Eosinophils (%) (Auto) 1 % (0-3) Basophils (%) (Auto) 0 % (0-3) Neutrophils # (Auto) 8.0 x10^3/uL (1.8-7.7) Lymphocytes # (Auto) 1.3 x10^3/uL (1.0-4.8) Monocytes # (Auto) 0.8 x10^3/uL (0.0-1.1) Eosinophils # (Auto) 0.1 x10^3/uL (0.0-0.7) Basophils # (Auto) 0.0 x10^3/uL (0.0-0.2) Prothrombin Time 13.7 SEC (11.7-14.0) Prothromb Time International Ratio 1.1 (0.8-1.1) Activated Partial Thromboplast Time 27 SEC (24-38) Sodium Level 128 mmol/L (136-145) Potassium Level 5.3 mmol/L (3.5-5.1) Chloride Level 88 mmol/L (98-107) Carbon Dioxide Level 21 mmol/L (21-32) Anion Gap 19 (6-14) Blood Urea Nitrogen 120 mg/dL (7-20) Creatinine 8.2 mg/dL (0.6-1.0) Estimated GFR (Cockcroft-Gault) 4.8 BUN/Creatinine Ratio 15 (6-20) Glucose Level 120 mg/dL (70-99) Calcium Level 9.2 mg/dL (8.5-10.1) Magnesium Level 3.6 mg/dL (1.8-2.4) Total Bilirubin 0.3 mg/dL (0.2-1.0) Aspartate Amino Transf (AST/SGOT) 14 U/L (15-37) Alanine Aminotransferase (ALT/SGPT) 19 U/L (14-59) Alkaline Phosphatase 123 U/L (46-116) Creatine Kinase 48 U/L (26-192) Creatine Kinase MB (Mass) 1.1 ng/mL (0.0-3.6) Creatine Kinase MB Relative Index % (0-4) Troponin I Quantitative < 0.017 ng/mL (0.000-0.055) [id number] Natriuretic Peptide 829 pg/mL (0-124) Total Protein 7.0 g/dL (6.4-8.2) Albumin 3.4 g/dL (3.4-5.0) Albumin/Globulin Ratio 0.9 (1.0-1.7) Thyroid Stimulating Hormone (TSH) 0.725 uIU/mL (0.358-3.74) Clostridium difficile Toxin B Gene Negative (Negative) Test 06/10/19 04:00 06/10/19 13:55 06/11/19 04:20 White Blood Count 9.3 x10^3/uL (4.0-11.0) Red Blood Count 4.48 x10^6/uL (3.50-5.40) Hemoglobin 13.4 g/dL (12.0-15.5) Hematocrit 40.6 % (36.0-47.0) Mean Corpuscular Volume 91 fL (79-100) Mean Corpuscular Hemoglobin 30 pg (25-35) Mean Corpuscular Hemoglobin Concent 33 g/dL (31-37) Red Cell Distribution Width 13.7 % (11.5-14.5) Platelet Count 292 x10^3/uL (140-400) Neutrophils (%) (Auto) 75 % (31-73) Lymphocytes (%) (Auto) 15 % (24-48) Monocytes (%) (Auto) 9 % (0-9) Eosinophils (%) (Auto) 2 % (0-3) Basophils (%) (Auto) 0 % (0-3) Neutrophils # (Auto) 6.9 x10^3/uL (1.8-7.7) Lymphocytes # (Auto) 1.4 x10^3/uL (1.0-4.8) Monocytes # (Auto) 0.8 x10^3/uL (0.0-1.1) Eosinophils # (Auto) 0.1 x10^3/uL (0.0-0.7) Basophils # (Auto) 0.0 x10^3/uL (0.0-0.2) Sodium Level 126 mmol/L (136-145) 138 mmol/L (136-145) Potassium Level 4.8 mmol/L (3.5-5.1) 4.1 mmol/L (3.5-5.1) Chloride Level 91 mmol/L (98-107) 101 mmol/L (98-107) Carbon Dioxide Level 17 mmol/L (21-32) 29 mmol/L (21-32) Anion Gap 18 (6-14) 8 (6-14) Blood Urea Nitrogen 128 mg/dL (7-20) 50 mg/dL (7-20) Creatinine 7.7 mg/dL (0.6-1.0) 4.1 mg/dL (0.6-1.0) Estimated GFR (Cockcroft-Gault) 5.1 10.6 Glucose Level 118 mg/dL (70-99) 85 mg/dL (70-99) Calcium Level 8.5 mg/dL (8.5-10.1) 7.9 mg/dL (8.5-10.1) Phosphorus Level 8.9 mg/dL (2.6-4.7) Hepatitis B Surface Antigen Nonreactive (Nonreactive) Hepatitis B Surface Antibody, Quant <3.1 mIU/mL (Immunity>9.9) Hepatitis B Core Total Antibody Nonreactive (Nonreactive) Laboratory Tests Test 06/10/19 13:55 06/11/19 04:20 Hepatitis B Surface Antigen Nonreactive (Nonreactive) Hepatitis B Surface Antibody, Quant <3.1 mIU/mL (Immunity>9.9) Hepatitis B Core Total Antibody Nonreactive (Nonreactive) Sodium Level 138 mmol/L (136-145) Potassium Level 4.1 mmol/L (3.5-5.1) Chloride Level 101 mmol/L (98-107) Carbon Dioxide Level 29 mmol/L (21-32) Anion Gap 8 (6-14) Blood Urea Nitrogen 50 mg/dL (7-20) Creatinine 4.1 mg/dL (0.6-1.0) Estimated GFR (Cockcroft-Gault) 10.6 Glucose Level 85 mg/dL (70-99) Calcium Level 7.9 mg/dL (8.5-10.1) Medications Current Medications Ondansetron HCl (Zofran) 4 mg 1X ONCE IV Last administered on 06/09/19at 17:11; Start 06/09/19 at 17:15; Stop 06/09/19 at 17:16; Status DC Meclizine HCl (Antivert) 25 mg 1X ONCE PO Last administered on 06/09/19at 17:11; Start 06/09/19 at 17:15; Stop 06/09/19 at 17:16; Status DC Ondansetron HCl (Zofran) 4 mg PRN Q8HRS PRN IV NAUSEA/VOMITING; Start 06/09/19 at 18:00; Stop 06/10/19 at 08:50; Status DC Sodium Chloride 1,000 ml @ 125 mls/hr 1X ONCE IV Last administered on at 18:42; Start 06/09/19 at 18:00; Stop 06/10/19 at 01:59; Status DC Sodium Chloride 1,000 ml @ 100 mls/hr 1X ONCE IV Last administered on 06/09/19at 19:30; Start 06/09/19 at 19:30; Stop 06/10/19 at 05:29; Status DC Nicotine (Nicoderm Cq 14mg) 1 patch PRN DAILY PRN TD SMOKING CESSATION; Start 06/09/19 at 20:15 Acetaminophen (Tylenol) 650 mg PRN Q6HRS PRN PO MILD PAIN 1-3 Last administered on 06/10/19at 03:57; Start 06/10/19 at 03:30; Stop 06/10/19 at 08:52; Status DC Ondansetron HCl (Zofran) 4 mg PRN Q6HRS PRN IV NAUSEA/VOMITING Last administered on 06/10/19at 16:46; Start 06/10/19 at 09:00 Acetaminophen (Tylenol) 500 mg PRN Q6HRS PRN PO MILD PAIN / TEMP; Start 06/10/19 at 09:00 Acetaminophen/ Codeine Phosphate (Tylenol #3) 1 tab PRN Q6HRS PRN PO MODERATE PAIN; Start 06/10/19 at 09:00 Meclizine HCl (Antivert) 25 mg PRN Q6HRS PRN PO DIZZINESS; Start 06/10/19 at 09:00 Cyclobenzaprine HCl (Flexeril) 10 mg TID PO Last administered on 06/11/19 08:58; Start 06/10/19 at 09:00 Levothyroxine Sodium (Synthroid) 137 mcg DAILY06 PO ; Start 06/10/19 at 09:00 Sodium Chloride 1,000 ml @ 100 mls/hr Q10H IV Last administered on 06/10/19at 22:30; Start 06/10/19 at 09:00 Lidocaine/Sodium Bicarbonate (Buffered Lidocaine 1%) 3 ml STK-MED ONCE .ROUTE ; Start 06/10/19 at 12:10; Stop 06/10/19 at 12:11; Status DC Lidocaine/Sodium Bicarbonate (Buffered Lidocaine 1%) 6 ml 1X ONCE INJ Last ad ministered on 06/10/19at 12:30; Start 06/10/19 at 12:30; Stop 06/10/19 at 12:31; Status DC Loperamide HCl (Imodium) 2 mg PRN Q15MIN PRN PO DIARRHEA Last administered on 06/10/19at 23:41; Start 06/10/19 at 15:15 Sodium Chloride 1,000 ml @ 1,000 mls/hr Q1H PRN IV hypotension; Start 06/10/19 at 15:39; Stop 06/10/19 at 21:38; Status DC Diphenhydramine HCl (Benadryl) 25 mg 1X PRN PRN IV ITCHING; Start 06/10/19 at 15:45; Stop 06/11/19 at 15:44 Diphenhydramine HCl (Benadryl) 25 mg 1X PRN PRN IV ITCHING; Start 06/10/19 at 15:45; Stop 06/11/19 at 15:44 Sodium Chloride 1,000 ml @ 400 mls/hr Q2H30M PRN IV PATENCY; Start 06/10/19 at 15:39; Stop 06/11/19 at 03:38; Status DC Info (PHARMACY MONITORING -- do not chart) 1 each PRN DAILY PRN MC SEE COMMENTS; Start 06/10/19 at 15:45 Sodium Chloride 1,000 ml @ 1,000 mls/hr Q1H PRN IV hypotension; Start 06/11/19 at 07:36; Stop 06/11/19 at 13:35 Sodium Chloride 1,000 ml @ 400 mls/hr Q2H30M PRN IV PATENCY; Start 06/11/19 at 07:36; Stop 06/11/19 at 19:35 Info (PHARMACY MONITORING -- do not chart) 1 each PRN DAILY PRN MC SEE COMMENTS; Start 06/11/19 at 07:45; Status UNV Info (PHARMACY MONITORING -- do not chart) 1 each PRN DAILY PRN MC SEE COMMENTS; Start 06/11/19 at 07:45; Status UNV Active Scripts Active Reported Lisinopril 40 Mg Tablet 1 Tab PO DAILY Cyclobenzaprine Hcl 10 Mg Tablet 1 Tab PO TID Atenolol 50 Mg Tablet 1 Tab PO DAILY Levothyroxine Sodium 137 Mcg Tablet 1 Tab PO DAILY Meloxicam 7.5 Mg Tablet 7.5 Mg PO DAILY Vitals/I & O Vital Sign - Last 24 Hours 06/10/19 06/10/19 06/10/19 06/10/19 11:00 13:00 13:10 15:00 Temp 98.2 98.2 98.2 98.2 Pulse 65 62 63 64 Resp 18 18 16 18 B/P (MAP) 119/44 (69) 118/56 (76) 97/53 (68) 98/43 (61) Pulse Ox 98 97 98 98 O2 Delivery Room Air Room Air Room Air Room Air 06/10/19 06/10/19 06/10/19 06/11/19 19:00 20:00 23:00 03:00 Temp 97.4 98.9 97.4 98.9 Pulse 70 70 Resp 18 18 B/P (MAP) 99/54 (69) 90/50 (63) Pulse Ox 96 98 O2 Delivery Room Air 06/11/19 07:00 Temp 98.2 98.2 Pulse 67 Resp 18 B/P (MAP) 125/62 (83) Pulse Ox 98 O2 Delivery Room Air Intake and Output 06/10/19 06/10/19 06/11/19 14:59 22:59 06:59 Intake Total 150 ml 0 ml 120 ml Balance 150 ml 0 ml 120 ml JARET GLASS MD Jun 11, 2019 09:18
--- NOTE | 2019-06-11 11:50 | PDOC ---
Renal-Progress Notes Subjective Notes Notes NO NEW COMPLAINTS History of Present Illness Hx of present illness STABLE Vitals Vitals Vital Signs Date Time Temp Pulse Resp B/P (MAP) Pulse Ox O2 Delivery O2 Flow Rate FiO2 06/11/19 07:00 98.2 67 18 125/62 (83) 98 Room Air 98.2 Weight Weight [ ] I.O. Intake and Output Intake and Output 06/11/19 07:00 Intake Total 270 ml Balance 270 ml Intake Oral 270 ml # Voids 5 # Bowel Movements 8 Labs Labs Laboratory Tests Test 06/10/19 13:55 06/11/19 04:20 Hepatitis B Surface Antigen Nonreactive (Nonreactive) Hepatitis B Surface Antibody, Quant <3.1 mIU/mL (Immunity>9.9) Hepatitis B Core Total Antibody Nonreactive (Nonreactive) Sodium Level 138 mmol/L (136-145) Potassium Level 4.1 mmol/L (3.5-5.1) Chloride Level 101 mmol/L (98-107) Carbon Dioxide Level 29 mmol/L (21-32) Anion Gap 8 (6-14) Blood Urea Nitrogen 50 mg/dL (7-20) Creatinine 4.1 mg/dL (0.6-1.0) Estimated GFR (Cockcroft-Gault) 10.6 Glucose Level 85 mg/dL (70-99) Calcium Level 7.9 mg/dL (8.5-10.1) Review of Systems Constitutional: yes: weakness, alert, oriented Ears/Nose/Throat: Yes: no symptom reported Eyes: Yes: no symptom reported Pulmonary: Yes no symptom reported Cardiovascular: Yes no symptom reported Gastrointestional: Yes: no symptom reported Genitourinary: Yes: no symptom reported Musculoskeletal: Yes: no symptom reported Psychiatric/Neurological: Yes: no symptom reported Endocrine: Yes: no symptom reported Physical Exam General Appearance: no apparent distress Skin: warm Respiratory: bilateral CTA Heart: S1S2 Abdomen: soft, bowel sounds present Genitourinary: bladder flat Extremities: pulses present Neurology: alert Assessment Assessment IMP NEW ESRD ANEMIA HTN PLAN HD TODAY UF TO MINIMUM WILL NEED SW TO SET UP OP HD WILL FOLLOW WILL NEED PERMANENT ACCESS AND A TDC RACHAEL BLEDSOE MD Jun 11, 2019 11:49
[2019-06-11 15:00] VITALS: BP 103/50
--- NOTE | 2019-06-11 17:05 | PDOC ---
PROGRESS NOTES Assessment Assessment Metabolic encephalopathy. Persistent dizziness for 4 days before admission. LOC x 6 times in 2 days. Falls. Hyponatremia, Na+ 126. Hyperkalemia. Hypocholoremia Cl- 88 Acute renal failure. HTN. Left temporal meningioma likely, calcified. No evidence of acute CVA this time. RECOMMENDATIONS/PLAN: Treat medical diseases per floor team. Correct electrolytes imbalances. Discussed with her daughter at bedside before. HISTORY OF THE PRESENT ILLNESS: This is a 74-yea-old female patient developed symptoms of mental status changes, persistent dizziness for 4 days, LOC multiple time and falls. She was brought to the ER of [facility] and was eventually admitted into hospital for further evaluation. Her was found to have acute renal failure with electrolytes abnormalities. Past Medical History Cardiovascular: HTN CENTRAL NERVOUS SYSTEM: CVA GI: No pertinent hx Heme/Onc: No pertinent hx ENT: No pertinent hx Renal/: No pertinent hx Endocrine: No pertinent hx Family History Non contributory. PAST SURGERY HISTORY: No major surgery recently. ALLERGY: Unknown MEDICATIONS: Refer to [facility] SOCIAL HISTORY: Lives alone at home. Denies drinking, and illicit drug use. She smokes 1 pack of cigarettes a day for many years. REVIEW OF SYSTEMS: Constitutional: No malnutrition, weight loss, cachexia. Head: No traumatic brain or head injury. Skin: No edema, or rash. Ear: No infection. Eyes: No vision loss or color blindness. Nose: No bleeding or purulent discharges. Hearing: No hearing decrease. Neck: No injury. Breast: No history of cancer, masses,or discharges. Cardiac: HTN. Pulmonary: No pneumonia. GI: No GI ulcer, GI bleeding. Urinary/genital: UTI. Endocrinologic: No cousin face, craniofacial dysmorphism. Skeletomuscular: No muscular atrophy, deformity. Neurological: see HP. Psychiatric: Denies drug use/abuse. Otherwise, not [id number] review of systems. PHYSICAL EXAMINATION: General appearance is in subacute distress. HEENT: Normocephalic and nontraumatic. Eyes, nose, ears, and throat are unremarkable. Neck is supple. No lymphadenopathy. No crepitus. Cardiovascular: S1, S2, regular rate and rhythm. Pulmonary: Clear to auscultation bilaterally. Abdomen: Bowel sounds are positive. Abdomen is soft, nontender, and nondistended. Extremities: No rash, lesions, or edema. No restriction of range of motion NEUROLOGICAL EXAMINATION: Awake. Partially oriented to time, place and person. PERRL. EOMI. CN: no focal findings. Muscle tone: within normal. Muscle strength: 5- DTR: 2 UE, 0-1 at knee. Plantar reflex: Flexor response bilaterally Gait: At her baseline normal. Sensory exam: no abnormal findings. No cerebellar signs elicited. F-T-N test fine. Objective Objective Vital Signs Date Time Temp Pulse Resp B/P (MAP) Pulse Ox O2 Delivery O2 Flow Rate FiO2 06/11/19 15:00 98.2 85 18 103/50 (67) 97 Room Air 98.2 Intake and Output 06/11/19 06:59 Intake Total 270 ml Balance 270 ml Intake Oral 270 ml # Voids 5 # Bowel Movements 8 Vitals Signs Vitals VS - Last 72 Hours, by Label Date Time Temp Pulse Resp B/P (MAP) Pulse Ox O2 Delivery O2 Flow Rate FiO2 06/11/19 15:00 98.2 85 18 103/50 (67) 97 Room Air 98.2 06/11/19 08:00 Room Air 06/11/19 07:00 98.2 67 18 125/62 (83) 98 Room Air 98.2 06/11/19 03:00 06/10/19 23:00 98.9 70 18 90/50 (63) 98 98.9 06/10/19 20:00 Room Air 06/10/19 19:00 97.4 70 18 99/54 (69) 96 97.4 06/10/19 15:00 98.2 64 18 98/43 (61) 98 Room Air 98.2 06/10/19 13:10 63 16 97/53 (68) 98 Room Air 06/10/19 13:00 62 18 118/56 (76) 97 Room Air 06/10/19 11:00 98.2 65 18 119/44 (69) 98 Room Air 98.2 06/10/19 08:00 Room Air 06/10/19 07:00 98.2 62 18 121/47 (71) 97 Room Air 98.2 Laboratory Laboratory Laboratory Tests Test 06/11/19 04:20 Sodium Level 138 mmol/L (136-145) Potassium Level 4.1 mmol/L (3.5-5.1) Chloride Level 101 mmol/L (98-107) Carbon Dioxide Level 29 mmol/L (21-32) Anion Gap 8 (6-14) Blood Urea Nitrogen 50 mg/dL (7-20) Creatinine 4.1 mg/dL (0.6-1.0) Estimated GFR (Cockcroft-Gault) 10.6 Glucose Level 85 mg/dL (70-99) Calcium Level 7.9 mg/dL (8.5-10.1) Medication Medications Current Medications Info (PHARMACY MONITORING -- do not chart) 1 each PRN DAILY PRN MC SEE COMMENTS; Start 06/11/19 at 07:45; Status UNV Info (PHARMACY MONITORING -- do not chart) 1 each PRN DAILY PRN MC SEE COMMENTS; Start 06/11/19 at 07:45; Status UNV Sodium Chloride 1,000 ml @ 400 mls/hr Q2H30M PRN IV PATENCY; Start 06/11/19 at 07:36; Stop 06/11/19 at 19:35 Sodium Chloride 1,000 ml @ 1,000 mls/hr Q1H PRN IV hypotension; Start 06/11/19 at 07:36; Stop 06/11/19 at 13:35; Status DC Comment Review of Relevant I have reviewed the following items le (where applicable) has been applied. DAPHNEY BROWNLEE MD Jun 11, 2019 17:05
[2019-06-11 19:00] VITALS: BP 93/44
[2019-06-11 23:14] VITALS: BP 139/56
[2019-06-12] MEDS: IV NORMAL SALINE 1000ML BAG 1,000 ML IV SCH ×3 (00:19→21:00)
[2019-06-12 00:45] LABS: BILIRUBIN,URINE MODERATE (NEG); CLARITY,URINE CLEAR; COLOR,URINE AMBER; NITRITE,URINE NEGATIVE (NEG); PROTEIN,URINE 30 mg/dL (NEG-TRACE)
[2019-06-12 00:49] LABS: SQUAMOUS EPITHELIAL CELL,UR FEW /LPF
[2019-06-12 00:50] LABS: AMORPHOUS SEDIMENT,UR PRESENT /HPF; BACTERIA,URINE MOD /HPF (0-FEW); RBC,URINE 0 /HPF (0-2)
[2019-06-12 02:45] VITALS: BP 97/42
[2019-06-12] MEDS: LEVOTHYROXINE 137 MCG TABLET PO SCH (05:17)
[2019-06-12 06:34] VITALS: BP 103/50
[2019-06-12] MEDS: CYCLOBENZAPRINE 10 MG TABLET. PO SCH ×3 (08:04→20:59)
--- NOTE | 2019-06-12 10:59 | PDOC ---
Renal-Progress Notes Subjective Notes Notes NO NEW COMPLAINTS History of Present Illness Hx of present illness STABLE Vitals Vitals Vital Signs Date Time Temp Pulse Resp B/P (MAP) Pulse Ox O2 Delivery O2 Flow Rate FiO2 06/12/19 08:00 Room Air 06/12/19 06:34 98.9 72 17 103/50 (67) 100 98.9 Weight Weight [ ] I.O. Intake and Output Intake and Output 06/12/19 06:59 Intake Total 1600 ml Balance 1600 ml Intake Oral 600 ml IV Total 1000 ml # Voids 4 # Bowel Movements 4 Labs Labs Laboratory Tests Test 06/12/19 00:30 Urine Collection Type Unknown Urine Color Bety Urine Clarity Clear Urine pH 5.0 Urine Specific [place] 1.015 Urine Protein 30 mg/dL (NEG-TRACE) Urine Glucose (UA) Negative mg/dL (NEG) Urine Ketones (Stick) Trace mg/dL (NEG) Urine Blood Negative (NEG) Urine Nitrite Negative (NEG) Urine Bilirubin Moderate (NEG) Urine Urobilinogen Dipstick 1.0 mg/dL (0.2 mg/dL) Urine Leukocyte Esterase Small (NEG) Urine RBC 0 /HPF (0-2) Urine WBC 5-10 /HPF (0-4) Urine Squamous Epithelial Cells Few /LPF Urine Amorphous Sediment Present /HPF Urine Bacteria Mod /HPF (0-FEW) Urine Mucus Slight /LPF Review of Systems Constitutional: yes: weakness, alert, oriented Ears/Nose/Throat: Yes: no symptom reported Eyes: Yes: no symptom reported Pulmonary: Yes no symptom reported Cardiovascular: Yes no symptom reported Gastrointestional: Yes: no symptom reported Genitourinary: Yes: no symptom reported Musculoskeletal: Yes: no symptom reported Psychiatric/Neurological: Yes: no symptom reported Endocrine: Yes: no symptom reported Physical Exam General Appearance: no apparent distress Skin: warm Respiratory: bilateral CTA Heart: S1S2 Abdomen: soft, bowel sounds present Genitourinary: bladder flat Extremities: pulses present Neurology: alert Assessment Assessment IMP NEW ESRD ANEMIA HTN PLAN HD TOMORROW WILL ASK IR FOR TUNNELED HD CATHETER WILL NEED SW TO SET UP OP HD WILL FOLLOW WILL NEED PERMANENT ACCESS AT SOME POINT RACHAEL BLEDSOE MD Jun 12, 2019 10:59
[2019-06-12 11:00] VITALS: BP 95/51
--- NOTE | 2019-06-12 11:14 | PDOC ---
PROGRESS NOTES Chief Complaint Chief Complaint NEW ESRD - will need OP HD set up [place] I on CK D-stage-5 Diarrhea �4 days, resolved- c diff neg Emesis times few days, resolved Hypertension, controlled Hyponatremia is smoker HArd of hearing History of Present Illness History of Present Illness She has no complaints Hard of hearing Will need OP HD set up per renal note will need tunneled HD cath insertion creat 4.1 from 7 Plan: Renal panel tmr SW OP HD set up Tunneled HD cath insertion dw RN at bedside Vitals Vitals Vital Signs Date Time Temp Pulse Resp B/P (MAP) Pulse Ox O2 Delivery O2 Flow Rate FiO2 06/12/19 11:00 98.8 95 16 95/51 (66) 98 Room Air 98.8 Physical Exam General: Alert, Cooperative, No acute distress Heart: Regular rate, Normal S1, Normal S2, No murmurs Lungs: Clear Abdomen: Normal bowel sounds, Soft Extremities: No cyanosis, No edema, Normal pulses Skin: No rashes, No breakdown, No significant lesion Labs LABS Laboratory Tests Test 06/12/19 00:30 Urine Collection Type Unknown Urine Color Bety Urine Clarity Clear Urine pH 5.0 Urine Specific [place] 1.015 Urine Protein 30 mg/dL (NEG-TRACE) Urine Glucose (UA) Negative mg/dL (NEG) Urine Ketones (Stick) Trace mg/dL (NEG) Urine Blood Negative (NEG) Urine Nitrite Negative (NEG) Urine Bilirubin Moderate (NEG) Urine Urobilinogen Dipstick 1.0 mg/dL (0.2 mg/dL) Urine Leukocyte Esterase Small (NEG) Urine RBC 0 /HPF (0-2) Urine WBC 5-10 /HPF (0-4) Urine Squamous Epithelial Cells Few /LPF Urine Amorphous Sediment Present /HPF Urine Bacteria Mod /HPF (0-FEW) Urine Mucus Slight /LPF Review of Systems Review of Systems A 14 point ROS was completed with the following noted as positive: Other systems reviewed and negative. \CONSTITUTIONAL: No fever or chills EYES: No recent changes SKIN: No rash or itching CARDIOVASCULAR: No chest pain, syncope, palpitations, or edema RESPIRATORY: No SOB or cough GASTROINTESTINAL: No nausea, vomiting or abdominal pain NEUROLOGICAL: No headaches or weakness ENDOCRINE: No cold or heat intolerance GENITOURINARY: No urgency or frequency of urination MUSCULOSKELETAL: No back pain or joint pain LYMPHATICS: No enlarged lymph nodes PSYCHIATRIC: No anxiety or depression Assessment and Plan Assessmemt and Plan Problems Medical Problems: (1) Acute on chronic renal failure Status: Acute (2) Dizziness Status: Acute (3) Hypotension Status: Acute Comment Review of Relevant I have reviewed the following items le (where applicable) has been applied. Labs Laboratory Tests Test 06/10/19 13:55 06/11/19 04:20 06/12/19 00:30 Hepatitis B Surface Antigen Nonreactive (Nonreactive) Hepatitis B Surface Antibody, Quant <3.1 mIU/mL (Immunity>9.9) Hepatitis B Core Total Antibody Nonreactive (Nonreactive) Sodium Level 138 mmol/L (136-145) Potassium Level 4.1 mmol/L (3.5-5.1) Chloride Level 101 mmol/L (98-107) Carbon Dioxide Level 29 mmol/L (21-32) Anion Gap 8 (6-14) Blood Urea Nitrogen 50 mg/dL (7-20) Creatinine 4.1 mg/dL (0.6-1.0) Estimated GFR (Cockcroft-Gault) 10.6 Glucose Level 85 mg/dL (70-99) Calcium Level 7.9 mg/dL (8.5-10.1) Urine Collection Type Unknown Urine Color Bety Urine Clarity Clear Urine pH 5.0 Urine Specific [place] 1.015 Urine Protein 30 mg/dL (NEG-TRACE) Urine Glucose (UA) Negative mg/dL (NEG) Urine Ketones (Stick) Trace mg/dL (NEG) Urine Blood Negative (NEG) Urine Nitrite Negative (NEG) Urine Bilirubin Moderate (NEG) Urine Urobilinogen Dipstick 1.0 mg/dL (0.2 mg/dL) Urine Leukocyte Esterase Small (NEG) Urine RBC 0 /HPF (0-2) Urine WBC 5-10 /HPF (0-4) Urine Squamous Epithelial Cells Few /LPF Urine Amorphous Sediment Present /HPF Urine Bacteria Mod /HPF (0-FEW) Urine Mucus Slight /LPF Laboratory Tests Test 06/12/19 00:30 Urine Collection Type Unknown Urine Color Bety Urine Clarity Clear Urine pH 5.0 Urine Specific [place] 1.015 Urine Protein 30 mg/dL (NEG-TRACE) Urine Glucose (UA) Negative mg/dL (NEG) Urine Ketones (Stick) Trace mg/dL (NEG) Urine Blood Negative (NEG) Urine Nitrite Negative (NEG) Urine Bilirubin Moderate (NEG) Urine Urobilinogen Dipstick 1.0 mg/dL (0.2 mg/dL) Urine Leukocyte Esterase Small (NEG) Urine RBC 0 /HPF (0-2) Urine WBC 5-10 /HPF (0-4) Urine Squamous Epithelial Cells Few /LPF Urine Amorphous Sediment Present /HPF Urine Bacteria Mod /HPF (0-FEW) Urine Mucus Slight /LPF Medications Current Medications Ondansetron HCl (Zofran) 4 mg 1X ONCE IV Last administered on 06/09/19at 17:11; Start 06/09/19 at 17:15; Stop 06/09/19 at 17:16; Status DC Meclizine HCl (Antivert) 25 mg 1X ONCE PO Last administered on 06/09/19at 17:11; Start 06/09/19 at 17:15; Stop 06/09/19 at 17:16; Status DC Ondansetron HCl (Zofran) 4 mg PRN Q8HRS PRN IV NAUSEA/VOMITING; Start 06/09/19 at 18:00; Stop 06/10/19 at 08:50; Status DC Sodium Chloride 1,000 ml @ 125 mls/hr 1X ONCE IV Last administered on 06/09/19at 18:42; Start 06/09/19 at 18:00; Stop 06/10/19 at 01:59; Status DC Sodium Chloride 1,000 ml @ 100 mls/hr 1X ONCE IV Last administered on 06/09/19at 19:30; Start 06/09/19 at 19:30; Stop 06/10/19 at 05:29; Status DC Nicotine (Nicoderm Cq 14mg) 1 patch PRN DAILY PRN TD SMOKING CESSATION; Start 06/09/19 at 20:15 Acetaminophen (Tylenol) 650 mg PRN Q6HRS PRN PO MILD PAIN 1-3 Last administered on 06/10/19at 03:57; Start 06/10/19 at 03:30; Stop 06/10/19 at 08:52; Status DC Ondansetron HCl (Zofran) 4 mg PRN Q6HRS PRN IV NAUSEA/VOMITING Last administ ered on 06/10/19at 16:46; Start 06/10/19 at 09:00 Acetaminophen (Tylenol) 500 mg PRN Q6HRS PRN PO MILD PAIN / TEMP; Start at 09:00 Acetaminophen/ Codeine Phosphate (Tylenol #3) 1 tab PRN Q6HRS PRN PO MODERATE PAIN; Start 06/10/19 at 09:00 Meclizine HCl (Antivert) 25 mg PRN Q6HRS PRN PO DIZZINESS; Start 06/10/19 at 09:00 Cyclobenzaprine HCl (Flexeril) 10 mg TID PO Last administered on 06/12/19at 08:04; Start 06/10/19 at 09:00 Levothyroxine Sodium (Synthroid) 137 mcg DAILY06 PO Last administered on 06/12/19at 05:17; Start 06/10/19 at 09:00 Sodium Chloride 1,000 ml @ 100 mls/hr Q10H IV Last administered on 06/12/19at 10:56; Start 06/10/19 at 09:00 Lidocaine/Sodium Bicarbonate (Buffered Lidocaine 1%) 3 ml STK-MED ONCE .ROUTE ; Start 06/10/19 at 12:10; Stop 06/10/19 at 12:11; Status DC Lidocaine/Sodium Bicarbonate (Buffered Lidocaine 1%) 6 ml 1X ONCE INJ Last administered on 06/10/19at 12:30; Start 06/10/19 at 12:30; Stop 06/10/19 at 12:31; Status DC Loperamide HCl (Imodium) 2 mg PRN Q15MIN PRN PO DIARRHEA Last administered on 06/10/19at 23:41; Start 06/10/19 at 15:15 Sodium Chloride 1,000 ml @ 1,000 mls/hr Q1H PRN IV hypotension; Start 06/10/19 at 15:39; Stop 06/10/19 at 21:38; Status DC Diphenhydramine HCl (Benadryl) 25 mg 1X PRN PRN IV ITCHING; Start 06/10/19 at 15:45; Stop 06/11/19 at 15:44; Status DC Diphenhydramine HCl (Benadryl) 25 mg 1X PRN PRN IV ITCHING; Start 06/10/19 at 15:45; Stop 06/11/19 at 15:44; Status DC Sodium Chloride 1,000 ml @ 400 mls/hr Q2H30M PRN IV PATENCY; Start 06/10/19 at 15:39; Stop 06/11/19 at 03:38; Status DC Info (PHARMACY MONITORING -- do not chart) 1 each PRN DAILY PRN MC SEE COMMENTS ; Start 06/10/19 at 15:45 Sodium Chloride 1,000 ml @ 1,000 mls/hr Q1H PRN IV hypotension; Start 06/11/19 at 07:36; Stop 06/11/19 at 13:35; Status DC Sodium Chloride 1,000 ml @ 400 mls/hr Q2H30M PRN IV PATENCY; Start 06/11/19 at 07:36; Stop 06/11/19 at 19:35; Status DC Info (PHARMACY MONITORING -- do not chart) 1 each PRN DAILY PRN MC SEE COMMENTS; Start 06/11/19 at 07:45; Status UNV Info (PHARMACY MONITORING -- do not chart) 1 each PRN DAILY PRN MC SEE COMMENTS; Start 06/11/19 at 07:45; Status UNV Active Scripts Active Reported Lisinopril 40 Mg Tablet 1 Tab PO DAILY Cyclobenzaprine Hcl 10 Mg Tablet 1 Tab PO TID Atenolol 50 Mg Tablet 1 Tab PO DAILY Levothyroxine Sodium 137 Mcg Tablet 1 Tab PO DAILY Meloxicam 7.5 Mg Tablet 7.5 Mg PO DAILY Vitals/I & O Vital Sign - Last 24 Hours 06/11/19 06/11/19 06/11/19 06/11/19 15:00 19:00 19:00 23:14 Temp 98.2 97.9 98.1 98.2 97.9 98.1 Pulse 85 76 85 Resp 18 18 17 B/P (MAP) 103/50 (67) 93/44 (60) 139/56 (83) Pulse Ox 97 98 94 O2 Delivery Room Air Room Air Room Air Room Air 06/12/19 06/12/19 06/12/19 06/12/19 02:45 06:34 08:00 11:00 Temp 98.9 98.9 98.8 98.9 98.9 98.8 Pulse 86 72 95 Resp 17 17 16 B/P (MAP) 97/42 (60) 103/50 (67) 95/51 (66) Pulse Ox 94 100 98 O2 Delivery Room Air Room Air Room Air Room Air Intake and Output 06/11/19 06/11/19 06/12/19 14:59 22:59 06:59 Intake Total 250 ml 150 ml 1200 ml Balance 250 ml 150 ml 1200 ml JARET GLASS MD Jun 12, 2019 11:14
[2019-06-12 15:00] VITALS: BP 125/63
[2019-06-12 17:47] LABS: BARBITURATES NEG (NEG); BENZODIAZEPINES NEG (NEG); CANNABINOIDS NEG (NEG); COCAINE NEG (NEG); METHADONE NEG (NEG); OPIATES NEG (NEG); PHENCYCLIDINE NEG (NEG)
[2019-06-12 17:48] LABS: AMPHETAMINE/METHAMPHETAMINE NEG (NEG)
--- NOTE | 2019-06-12 17:56 | PDOC ---
PROGRESS NOTES Assessment Assessment Metabolic encephalopathy. Persistent dizziness for 4 days before admission. LOC x 6 times in 2 days. Falls. Hyponatremia, Na+ 126. Hyperkalemia. Hypocholoremia Cl- 88 Hypocalcemia. Acute renal failure. HTN. Left temporal calcified meningioma likely. No evidence of acute CVA this time. RECOMMENDATIONS/PLAN: Treat medical diseases per floor team. Correct electrolytes imbalances. See Neurosurgery as out-patient for likely meningioma. Discussed with her daughter again at bedside on 06/12/19. HISTORY OF THE PRESENT ILLNESS: This is a 74-yea-old female patient developed symptoms of mental status changes, persistent dizziness for 4 days, LOC multiple time and falls. She was brought to the ER of [facility] and was eventually admitted into hospital for further evaluation. Her was found to have acute renal failure with electrolytes abnormalities. No headaches, or visual deficits. Past Medical History Cardiovascular: HTN CENTRAL NERVOUS SYSTEM: CVA GI: No pertinent hx Heme/Onc: No pertinent hx ENT: No pertinent hx Renal/: No pertinent hx Endocrine: No pertinent hx Family History Non contributory. PAST SURGERY HISTORY: No major surgery recently. ALLERGY: Unknown MEDICATIONS: Refer to [facility] SOCIAL HISTORY: Lives alone at home. Denies drinking, and illicit drug use. She smokes 1 pack of cigarettes a day for many years. REVIEW OF SYSTEMS: Constitutional: No malnutrition, weight loss, cachexia. Head: No traumatic brain or head injury. Skin: No edema, or rash. Ear: No infection. Eyes: No vision loss or color blindness. Nose: No bleeding or purulent discharges. Hearing: No hearing decrease. Neck: No injury. Breast: No history of cancer, masses,or discharges. Cardiac: HTN. Pulmonary: No pneumonia. GI: No GI ulcer, GI bleeding. Urinary/genital: UTI. Endocrinologic: No cousin face, craniofacial dysmorphism. Skeletomuscular: No muscular atrophy, deformity. Neurological: see HP. Psychiatric: Denies drug use/abuse. Otherwise, not [id number] review of systems. PHYSICAL EXAMINATION: General appearance is in subacute distress. HEENT: Normocephalic and nontraumatic. Eyes, nose, ears, and throat are unremarkable. Neck is supple. No lymphadenopathy. No crepitus. Cardiovascular: S1, S2, regular rate and rhythm. Pulmonary: Clear to auscultation bilaterally. Abdomen: Bowel sounds are positive. Abdomen is soft, nontender, and nondistended. Extremities: No rash, lesions, or edema. No restriction of range of motion NEUROLOGICAL EXAMINATION: Awake. Oriented to time, place and person. PERRL. EOMI. CN: no focal findings. Muscle tone: within normal. Muscle strength: 5- DTR: 2 UE, 0-1 at knee. Plantar reflex: Flexor response bilaterally Gait: At her baseline normal. Sensory exam: no abnormal findings. No cerebellar signs elicited. F-T-N test fine. Objective Objective Vital Signs Date Time Temp Pulse Resp B/P (MAP) Pulse Ox O2 Delivery O2 Flow Rate FiO2 06/12/19 15:00 98.4 83 16 125/63 (83) 97 Room Air 98.4 Intake and Output 06/12/19 07:00 Intake Total 1600 ml Balance 1600 ml Intake Oral 600 ml IV Total 1000 ml # Voids 4 # Bowel Movements 4 Vitals Signs Vitals VS - Last 72 Hours, by Label Date Time Temp Pulse Resp B/P (MAP) Pulse Ox O2 Delivery O2 Flow Rate FiO2 06/12/19 15:00 98.4 83 16 125/63 (83) 97 Room Air 98.4 06/12/19 11:00 98.8 95 16 95/51 (66) 98 Room Air 98.8 06/12/19 08:00 Room Air 06/12/19 06:34 98.9 72 17 103/50 (67) 100 Room Air 98.9 06/12/19 02:45 98.9 86 17 97/42 (60) 94 Room Air 98.9 06/11/19 23:14 98.1 85 17 139/56 (83) 94 Room Air 98.1 06/11/19 19:00 97.9 76 18 93/44 (60) 98 Room Air 97.9 06/11/19 19:00 Room Air 06/11/19 15:00 98.2 85 18 103/50 (67) 97 Room Air 98.2 06/11/19 08:00 Room Air 06/11/19 07:00 98.2 67 18 125/62 (83) 98 Room Air 98.2 Laboratory Laboratory Laboratory Tests Test 06/12/19 00:30 Urine Collection Type Unknown Urine Color Bety Urine Clarity Clear Urine pH 5.0 Urine Specific [place] 1.015 Urine Protein 30 mg/dL (NEG-TRACE) Urine Glucose (UA) Negative mg/dL (NEG) Urine Ketones (Stick) Trace mg/dL (NEG) Urine Blood Negative (NEG) Urine Nitrite Negative (NEG) Urine Bilirubin Moderate (NEG) Urine Urobilinogen Dipstick 1.0 mg/dL (0.2 mg/dL) Urine Leukocyte Esterase Small (NEG) Urine RBC 0 /HPF (0-2) Urine WBC 5-10 /HPF (0-4) Urine Squamous Epithelial Cells Few /LPF Urine Amorphous Sediment Present /HPF Urine Bacteria Mod /HPF (0-FEW) Urine Mucus Slight /LPF Urine Opiates Screen Neg (NEG) Urine Methadone Screen Neg (NEG) Urine Barbiturates Neg (NEG) Urine Phencyclidine Screen Neg (NEG) Urine Amphetamine/Methamphetamine Neg (NEG) Urine Benzodiazepines Screen Neg (NEG) Urine Cocaine Screen Neg (NEG) Urine Cannabinoids Screen Neg (NEG) Urine Ethyl Alcohol Neg (NEG) Comment Review of Relevant I have reviewed the following items le (where applicable) has been applied. DAPHNEY BROWNLEE MD Jun 12, 2019 17:56
[2019-06-12 19:00] VITALS: BP 114/59
[2019-06-12 23:02] VITALS: BP 132/67
[2019-06-13 02:56] VITALS: BP 148/77
[2019-06-13] MEDS: ACETAMINOPHEN/CODEINE 300/30MG TABLET. PO PRN ×2 (03:00→20:40)
[2019-06-13] MEDS: LEVOTHYROXINE 137 MCG TABLET PO SCH (03:00)
[2019-06-13 03:48] LABS: HEMATOCRIT 28.7 % (36.0-47.0); HEMOGLOBIN 9.6 g/dL (12.0-15.5); RED BLOOD COUNT 3.18 x10^6/uL (3.50-5.40); RED CELL DISTRIBUTION WIDTH 13.4 % (11.5-14.5); WHITE BLOOD COUNT 7.5 x10^3/uL (4.0-11.0)
[2019-06-13 04:09] LABS: ALBUMIN 2.3 g/dL (3.4-5.0); CALCIUM 8.1 mg/dL (8.5-10.1); CREATININE 1.9 mg/dL (0.6-1.0); GFR 25.8; PHOSPHORUS 2.5 mg/dL (2.6-4.7); POTASSIUM 3.9 mmol/L (3.5-5.1)
[2019-06-13 07:00] VITALS: BP 142/64
[2019-06-13] MEDS: IV NORMAL SALINE 1000ML BAG 1,000 ML IV SCH ×2 (07:00→23:00)
[2019-06-13] MEDS ORDERED: diphenhydrAMINE HCL 25 MG CAPSULE PO PRN (08:00)
[2019-06-13] MEDS ORDERED: LIDOCAINE 1%/EPI 1:100,000 20 ML VIAL. ONE (08:42)
[2019-06-13] MEDS ORDERED: MIDAZOLAM HCL/PF 2 MG/2 ML VIAL. ONE (08:51)
[2019-06-13] MEDS ORDERED: fentaNYL PF VIAL 100 MCG/2 ML VIAL ONE (08:52)
--- NOTE | 2019-06-13 08:58 | PDOC ---
PROGRESS NOTES Chief Complaint Chief Complaint NEW ESRD - will need OP HD set up [place] I on CK D-stage-5 Diarrhea �4 days, resolved- c diff neg Emesis times few days, resolved Hypertension, controlled Hyponatremia is smoker HArd of hearing History of Present Illness History of Present Illness She has no complaints Hard of hearing Will need OP HD set up per renal note will need tunneled HD cath insertion -planned or today thursday creat 1.9 from 4.1 from 7 Plan: Renal panel tmr SW OP HD set up Tunneled HD cath insertion today josé miguel RN at bedside Vitals Vitals Vital Signs Date Time Temp Pulse Resp B/P (MAP) Pulse Ox O2 Delivery O2 Flow Rate FiO2 06/13/19 07:00 97.7 83 14 142/64 (90) 98 Room Air 97.7 Physical Exam General: Alert, Cooperative, No acute distress Heart: Regular rate, Normal S1, Normal S2, No murmurs Lungs: Clear Abdomen: Normal bowel sounds, Soft Extremities: No cyanosis, No edema, Normal pulses Skin: No rashes, No breakdown, No significant lesion Labs LABS Laboratory Tests Test 06/13/19 02:50 White Blood Count 7.5 x10^3/uL (4.0-11.0) Red Blood Count 3.18 x10^6/uL (3.50-5.40) Hemoglobin 9.6 g/dL (12.0-15.5) Hematocrit 28.7 % (36.0-47.0) Mean Corpuscular Volume 91 fL (79-100) Mean Corpuscular Hemoglobin 30 pg (25-35) Mean Corpuscular Hemoglobin Concent 34 g/dL (31-37) Red Cell Distribution Width 13.4 % (11.5-14.5) Platelet Count 207 x10^3/uL (140-400) Sodium Level 141 mmol/L (136-145) Potassium Level 3.9 mmol/L (3.5-5.1) Chloride Level 107 mmol/L (98-107) Carbon Dioxide Level 27 mmol/L (21-32) Anion Gap 7 (6-14) Blood Urea Nitrogen 19 mg/dL (7-20) Creatinine 1.9 mg/dL (0.6-1.0) Estimated GFR (Cockcroft-Gault) 25.8 Glucose Level 93 mg/dL (70-99) Calcium Level 8.1 mg/dL (8.5-10.1) Phosphorus Level 2.5 mg/dL (2.6-4.7) Albumin 2.3 g/dL (3.4-5.0) Review of Systems Review of Systems A 14 point ROS was completed with the following noted as positive: Other systems reviewed and negative. \CONSTITUTIONAL: No fever or chills EYES: No recent changes SKIN: No rash or itching CARDIOVASCULAR: No chest pain, syncope, palpitations, or edema RESPIRATORY: No SOB or cough GASTROINTESTINAL: No nausea, vomiting or abdominal pain NEUROLOGICAL: No headaches or weakness ENDOCRINE: No cold or heat intolerance GENITOURINARY: No urgency or frequency of urination MUSCULOSKELETAL: No back pain or joint pain LYMPHATICS: No enlarged lymph nodes PSYCHIATRIC: No anxiety or depression Assessment and Plan Assessmemt and Plan Problems Medical Problems: (1) Acute on chronic renal failure Status: Acute (2) Dizziness Status: Acute (3) Hypotension Status: Acute Comment Review of Relevant I have reviewed the following items le (where applicable) has been applied. Labs Laboratory Tests Test 06/12/19 00:30 06/13/19 02:50 Urine Collection Type Unknown Urine Color Bety Urine Clarity Clear Urine pH 5.0 Urine Specific [place] 1.015 Urine Protein 30 mg/dL (NEG-TRACE) Urine Glucose (UA) Negative mg/dL (NEG) Urine Ketones (Stick) Trace mg/dL (NEG) Urine Blood Negative (NEG) Urine Nitrite Negative (NEG) Urine Bilirubin Moderate (NEG) Urine Urobilinogen Dipstick 1.0 mg/dL (0.2 mg/dL) Urine Leukocyte Esterase Small (NEG) Urine RBC 0 /HPF (0-2) Urine WBC 5-10 /HPF (0-4) Urine Squamous Epithelial Cells Few /LPF Urine Amorphous Sediment Present /HPF Urine Bacteria Mod /HPF (0-FEW) Urine Mucus Slight /LPF Urine Opiates Screen Neg (NEG) Urine Methadone Screen Neg (NEG) Urine Barbiturates Neg (NEG) Urine Phencyclidine Screen Neg (NEG) Urine Amphetamine/Methamphetamine Neg (NEG) Urine Benzodiazepines Screen Neg (NEG) Urine Cocaine Screen Neg (NEG) Urine Cannabinoids Screen Neg (NEG) Urine Ethyl Alcohol Neg (NEG) White Blood Count 7.5 x10^3/uL (4.0-11.0) Red Blood Count 3.18 x10^6/uL (3.50-5.40) Hemoglobin 9.6 g/dL (12.0-15.5) Hematocrit 28.7 % (36.0-47.0) Mean Corpuscular Volume 91 fL (79-100) Mean Corpuscular Hemoglobin 30 pg (25-35) Mean Corpuscular Hemoglobin Concent 34 g/dL (31-37) Red Cell Distribution Width 13.4 % (11.5-14.5) Platelet Count 207 x10^3/uL (140-400) Sodium Level 141 mmol/L (136-145) Potassium Level 3.9 mmol/L (3.5-5.1) Chloride Level 107 mmol/L (98-107) Carbon Dioxide Level 27 mmol/L (21-32) Anion Gap 7 (6-14) Blood Urea Nitrogen 19 mg/dL (7-20) Creatinine 1.9 mg/dL (0.6-1.0) Estimated GFR (Cockcroft-Gault) 25.8 Glucose Level 93 mg/dL (70-99) Calcium Level 8.1 mg/dL (8.5-10.1) Phosphorus Level 2.5 mg/dL (2.6-4.7) Albumin 2.3 g/dL (3.4-5.0) Laboratory Tests Test 06/13/19 02:50 White Blood Count 7.5 x10^3/uL (4.0-11.0) Red Blood Count 3.18 x10^6/uL (3.50-5.40) Hemoglobin 9.6 g/dL (12.0-15.5) Hematocrit 28.7 % (36.0-47.0) Mean Corpuscular Volume 91 fL (79-100) Mean Corpuscular Hemoglobin 30 pg (25-35) Mean Corpuscular Hemoglobin Concent 34 g/dL (31-37) Red Cell Distribution Width 13.4 % (11.5-14.5) Platelet Count 207 x10^3/uL (140-400) Sodium Level 141 mmol/L (136-145) Potassium Level 3.9 mmol/L (3.5-5.1) Chloride Level 107 mmol/L (98-107) Carbon Dioxide Level 27 mmol/L (21-32) Anion Gap 7 (6-14) Blood Urea Nitrogen 19 mg/dL (7-20) Creatinine 1.9 mg/dL (0.6-1.0) Estimated GFR (Cockcroft-Gault) 25.8 Glucose Level 93 mg/dL (70-99) Calcium Level 8.1 mg/dL (8.5-10.1) Phosphorus Level 2.5 mg/dL (2.6-4.7) Albumin 2.3 g/dL (3.4-5.0) Medications Current Medications Ondansetron HCl (Zofran) 4 mg 1X ONCE IV Last administered on 06/09/19at 17:11; Start 06/09/19 at 17:15; Stop 06/09/19 at 17:16; Status DC Meclizine HCl (Antivert) 25 mg 1X ONCE PO Last administered on 06/09/19 17:11; Start 06/09/19 at 17:15; Stop 06/09/19 at 17:16; Status DC Ondansetron HCl (Zofran) 4 mg PRN Q8HRS PRN IV NAUSEA/VOMITING; Start 06/09/19 at 18:00; Stop 06/10/19 at 08:50; Status DC Sodium Chloride 1,000 ml @ 125 mls/hr 1X ONCE IV Last administered on 06/09/19at 18:42; Start 06/09/19 at 18:00; Stop 06/10/19 at 01:59; Status DC Sodium Chloride 1,000 ml @ 100 mls/hr 1X ONCE IV Last administered on 06/09/19at 19:30; Start 06/09/19 at 19:30; Stop 06/10/19 at 05:29; Status DC Nicotine (Nicoderm Cq 14mg) 1 patch PRN DAILY PRN TD SMOKING CESSATION; Start 06/09/19 at 20:15 Acetaminophen (Tylenol) 650 mg PRN Q6HRS PRN PO MILD PAIN 1-3 Last administered on 06/10/19at 03:57; Start 06/10/19 at 03:30; Stop 06/10/19 at 08:52; Status DC Ondansetron HCl (Zofran) 4 mg PRN Q6HRS PRN IV NAUSEA/VOMITING Last administered on 06/10/19at 16:46; Start 06/10/19 at 09:00 Acetaminophen (Tylenol) 500 mg PRN Q6HRS PRN PO MILD PAIN / TEMP; Start 06/10/19 at 09:00 Acetaminophen/ Codeine Phosphate (Tylenol #3) 1 tab PRN Q6HRS PRN PO MODERATE PAIN Last administered on 06/13/19at 03:00; Start 06/10/19 at 09:00 Meclizine HCl (Antivert) 25 mg PRN Q6HRS PRN PO DIZZINESS; Start 06/10/19 at 09:00 Cyclobenzaprine HCl (Flexeril) 10 mg TID PO Last administered on 06/12/19 20:59; Start 06/10/19 at 09:00 Levothyroxine Sodium (Synthroid) 137 mcg DAILY06 PO Last administered on 03:00; Start 06/10/19 at 09:00 Sodium Chloride 1,000 ml @ 100 mls/hr Q10H IV Last administered on 06/13/19 07:00; Start 06/10/19 at 09:00 Lidocaine/Sodium Bicarbonate (Buffered Lidocaine 1%) 3 ml STK-MED ONCE .ROUTE ; Start 06/10/19 at 12:10; Stop 06/10/19 at 12:11; Status DC Lidocaine/Sodium Bicarbonate (Buffered Lidocaine 1%) 6 ml 1X ONCE INJ Last administered on 06/10/19at 12:30; Start 06/10/19 at 12:30; Stop 06/10/19 at 12:31; Status DC Loperamide HCl (Imodium) 2 mg PRN Q15MIN PRN PO DIARRHEA Last administered on 06/10/19at 23:41; Start 06/10/19 at 15:15 Sodium Chloride 1,000 ml @ 1,000 mls/hr Q1H PRN IV hypotension; Start 06/10/19 at 15:39; Stop 06/10/19 at 21:38; Status DC Diphenhydramine HCl (Benadryl) 25 mg 1X PRN PRN IV ITCHING; Start 06/10/19 at 15:45; Stop 06/11/19 at 15:44; Status DC Diphenhydramine HCl (Benadryl) 25 mg 1X PRN PRN IV ITCHING; Start 06/10/19 at 15:45; Stop 06/11/19 at 15:44; Status DC Sodium Chloride 1,000 ml @ 400 mls/hr Q2H30M PRN IV PATENCY; Start 06/10/19 at 15:39; Stop 06/11/19 at 03:38; Status DC Info (PHARMACY MONITORING -- do not chart) 1 each PRN DAILY PRN MC SEE COMMENTS; Start 06/10/19 at 15:45 Sodium Chloride 1,000 ml @ 1,000 mls/hr Q1H PRN IV hypotension; Start 06/11/19 at 07:36; Stop 06/11/19 at 13:35; Status DC Sodium Chloride 1,000 ml @ 400 mls/hr Q2H30M PRN IV PATENCY; Start 06/11/19 at 07:36; Stop 06/11/19 at 19:35; Status DC Info (PHARMACY MONITORING -- do not chart) 1 each PRN DAILY PRN MC SEE COMMENTS; Start 06/11/19 at 07:45; Status UNV Info (PHARMACY MONITORING -- do not chart) 1 each PRN DAILY PRN MC SEE COMMENTS; Start 06/11/19 at 07:45; Status UNV Diphenhydramine HCl (Benadryl) 25 mg PRN QHS PRN PO INSOMNIA; Start 06/13/19 at 08:00 Lidocaine/ Epinephrine (LIDOCAINE 1%-EPI 1:100,000 Multi-Dose) 20 ml STK-MED ONCE .ROUTE ; Start 06/13/19 at 08:42; Stop 06/13/19 at 08:43; Status DC Cefazolin Sodium 50 ml @ As Directed STK-MED ONCE IV ; Start 06/13/19 at 08:51; Stop 06/13/19 at 08:52; Status DC Midazolam HCl (Versed) 2 mg STK-MED ONCE .ROUTE ; Start 06/13/19 at 08:51; Stop 06/13/19 at 08:52; Status DC Fentanyl Citrate (Fentanyl 2ml Vial) 100 mcg STK-MED ONCE .ROUTE ; Start 06/13/19 at 08:52; Stop 06/13/19 at 08:53; Status DC Midazolam HCl (Versed) 2 mg 1X ONCE IV ; Start 06/13/19 at 09:00; Stop 06/13/19 at 09:01 Fentanyl Citrate (Fentanyl 2ml Vial) 100 mcg 1X ONCE IV ; Start 06/13/19 at 09:00; Stop 06/13/19 at 09:01 Lidocaine/ Epinephrine (LIDOCAINE 1%-EPI 1:100,000 Multi-Dose) 20 ml 1X ONCE IJ ; Start 06/13/19 at 09:00; Stop 06/13/19 at 09:01 Cefazolin Sodium 50 ml @ 100 mls/hr 1X ONCE IV ; Start 06/13/19 at 09:00; Stop 06/13/19 at 09:29 Active Scripts Active Reported Lisinopril 40 Mg Tablet 1 Tab PO DAILY Cyclobenzaprine Hcl 10 Mg Tablet 1 Tab PO TID Atenolol 50 Mg Tablet 1 Tab PO DAILY Levothyroxine Sodium 137 Mcg Tablet 1 Tab PO DAILY Meloxicam 7.5 Mg Tablet 7.5 Mg PO DAILY Vitals/I & O Vital Sign - Last 24 Hours 06/12/19 06/12/19 06/12/19 06/12/19 11:00 15:00 19:00 19:45 Temp 98.8 98.4 97.9 98.8 98.4 97.9 Pulse 95 83 91 Resp 16 16 16 B/P (MAP) 95/51 (66) 125/63 (83) 114/59 (77) Pulse Ox 98 97 99 O2 Delivery Room Air Room Air Room Air Room Air 06/12/19 06/13/19 06/13/19 06/13/19 23:02 02:56 03:00 04:00 Temp 97.9 97.7 97.9 97.7 Pulse 91 91 Resp 17 20 20 20 B/P (MAP) 132/67 (88) 148/77 (100) Pulse Ox 100 95 O2 Delivery Room Air Room Air Room Air Room Air 06/13/19 07:00 Temp 97.7 97.7 Pulse 83 Resp 14 B/P (MAP) 142/64 (90) Pulse Ox 98 O2 Delivery Room Air Intake and Output 06/12/19 06/12/19 06/13/19 15:00 23:00 07:00 Intake Total 750 ml 1450 ml 360 ml Balance 750 ml 1450 ml 360 ml JARET GLASS MD Jun 13, 2019 08:58
[2019-06-13] MEDS ORDERED: MIDAZOLAM HCL/PF 2 MG/2 ML VIAL. IV ONE (09:00)
[2019-06-13] MEDS ORDERED: fentaNYL PF VIAL 100 MCG/2 ML VIAL IV ONE (09:00)
[2019-06-13] MEDS ORDERED: LIDOCAINE 1%/EPI 1:100,000 20 ML VIAL. IJ ONE (09:00)
[2019-06-13] MEDS: CYCLOBENZAPRINE 10 MG TABLET. PO SCH ×3 (09:00→20:39)
[2019-06-13 09:38] VITALS: BP 147/56
[2019-06-13] MEDS ORDERED: IV NORMAL SALINE 1000ML BAG 1,000 ML IV PRN ×2 (10:02)
[2019-06-13] MEDS ORDERED: DIALYSIS PATIENT. MC PRN ×2 (10:15)
[2019-06-13] MEDS ORDERED: 0.9 % SODIUM CHLORIDE 10 ML DISP.SYRIN. IV PRN ×2 (10:15)
[2019-06-13] MEDS ORDERED: ALBUMIN HUMAN 25% 200 ML IV PRN (10:15)
--- NOTE | 2019-06-13 11:10 | PDOC ---
Renal-Progress Notes Subjective Notes Notes SLEEPY POST PROCEDURE History of Present Illness Hx of present illness STABLE Vitals Vitals Vital Signs Date Time Temp Pulse Resp B/P (MAP) Pulse Ox O2 Delivery O2 Flow Rate FiO2 06/13/19 09:38 99 16 95 Nasal Cannula 2.0 06/13/19 07:00 97.7 142/64 (90) 97.7 Weight Weight [ ] I.O. Intake and Output Intake and Output 06/13/19 06:59 Intake Total 2560 ml Balance 2560 ml Intake Oral 1560 ml IV Total 1000 ml # Voids 7 # Bowel Movements 4 Labs Labs Laboratory Tests Test 06/13/19 02:50 White Blood Count 7.5 x10^3/uL (4.0-11.0) Red Blood Count 3.18 x10^6/uL (3.50-5.40) Hemoglobin 9.6 g/dL (12.0-15.5) Hematocrit 28.7 % (36.0-47.0) Mean Corpuscular Volume 91 fL (79-100) Mean Corpuscular Hemoglobin 30 pg (25-35) Mean Corpuscular Hemoglobin Concent 34 g/dL (31-37) Red Cell Distribution Width 13.4 % (11.5-14.5) Platelet Count 207 x10^3/uL (140-400) Sodium Level 141 mmol/L (136-145) Potassium Level 3.9 mmol/L (3.5-5.1) Chloride Level 107 mmol/L (98-107) Carbon Dioxide Level 27 mmol/L (21-32) Anion Gap 7 (6-14) Blood Urea Nitrogen 19 mg/dL (7-20) Creatinine 1.9 mg/dL (0.6-1.0) Estimated GFR (Cockcroft-Gault) 25.8 Glucose Level 93 mg/dL (70-99) Calcium Level 8.1 mg/dL (8.5-10.1) Phosphorus Level 2.5 mg/dL (2.6-4.7) Albumin 2.3 g/dL (3.4-5.0) Review of Systems Constitutional: yes: weakness, alert, oriented Ears/Nose/Throat: Yes: no symptom reported Eyes: Yes: no symptom reported Pulmonary: Yes no symptom reported Cardiovascular: Yes no symptom reported Gastrointestional: Yes: no symptom reported Genitourinary: Yes: no symptom reported Musculoskeletal: Yes: no symptom reported Psychiatric/Neurological: Yes: no symptom reported Endocrine: Yes: no symptom reported Physical Exam General Appearance: no apparent distress Skin: warm Respiratory: bilateral CTA Heart: S1S2 Abdomen: soft, bowel sounds present Genitourinary: bladder flat Extremities: pulses present Neurology: alert Assessment Assessment IMP NEW ESRD ANEMIA HTN S/P TUNNELED HD CATHETER PLAN HD TODAY UF TO DW WILL NEED SW TO SET UP OP HD AT [facility] WILL FOLLOW WILL NEED PERMANENT ACCESS AT SOME POINT RACHAEL BLEDSOE MD Jun 13, 2019 11:10
--- NOTE | 2019-06-13 12:12 | PDOC ---
PROGRESS NOTES Assessment Problems Medical Problems: (1) Acute on chronic renal failure Status: Acute (2) Dizziness Status: Acute (3) Hypotension Status: Acute Metabolic encephalopathy. Dizziness, resolved Syncope Falls. Hyponatremia, Na+ 126. Hyperkalemia. Hypocholoremia Cl- 88 Hypocalcemia. Acute renal failure. HTN. Left temporal calcified meningioma No evidence of acute CVA Plan Treat medical diseases, No plans for outpatient dialysis. Correct electrolytes imbalances. See Neurosurgery as out-patient for likely meningioma, or simply follow with serial MRI studies say every 6-12 months. Subjective no complaints Objective Vital Signs Date Time Temp Pulse Resp B/P (MAP) Pulse Ox O2 Delivery O2 Flow Rate FiO2 06/13/19 09:38 99 16 95 Nasal Cannula 2.0 06/13/19 07:00 97.7 142/64 (90) 97.7 Intake and Output 06/13/19 06:59 Intake Total 2560 ml Balance 2560 ml Intake Oral 1560 ml IV Total 1000 ml # Voids 7 # Bowel Movements 4 PHYSICAL EXAM Alert. Oriented to time, place and person. PERRL. EOMI. CN: no focal findings. Muscle tone: normal. Muscle strength: 5-/5 DTR: 1-2+ Plantar reflex: flexor Gait: not examined in bed. Sensory exam: no abnormal findings. No cerebellar signs elicited. Review of Relevant I have reviewed the following items le (where applicable) has been applied. Labs Laboratory Tests Test 06/12/19 00:30 06/13/19 02:50 Urine Collection Type Unknown Urine Color Bety Urine Clarity Clear Urine pH 5.0 Urine Specific [place] 1.015 Urine Protein 30 mg/dL (NEG-TRACE) Urine Glucose (UA) Negative mg/dL (NEG) Urine Ketones (Stick) Trace mg/dL (NEG) Urine Blood Negative (NEG) Urine Nitrite Negative (NEG) Urine Bilirubin Moderate (NEG) Urine Urobilinogen Dipstick 1.0 mg/dL (0.2 mg/dL) Urine Leukocyte Esterase Small (NEG) Urine RBC 0 /HPF (0-2) Urine WBC 5-10 /HPF (0-4) Urine Squamous Epithelial Cells Few /LPF Urine Amorphous Sediment Present /HPF Urine Bacteria Mod /HPF (0-FEW) Urine Mucus Slight /LPF Urine Opiates Screen Neg (NEG) Urine Methadone Screen Neg (NEG) Urine Barbiturates Neg (NEG) Urine Phencyclidine Screen Neg (NEG) Urine Amphetamine/Methamphetamine Neg (NEG) Urine Benzodiazepines Screen Neg (NEG) Urine Cocaine Screen Neg (NEG) Urine Cannabinoids Screen Neg (NEG) Urine Ethyl Alcohol Neg (NEG) White Blood Count 7.5 x10^3/uL (4.0-11.0) Red Blood Count 3.18 x10^6/uL (3.50-5.40) Hemoglobin 9.6 g/dL (12.0-15.5) Hematocrit 28.7 % (36.0-47.0) Mean Corpuscular Volume 91 fL (79-100) Mean Corpuscular Hemoglobin 30 pg (25-35) Mean Corpuscular Hemoglobin Concent 34 g/dL (31-37) Red Cell Distribution Width 13.4 % (11.5-14.5) Platelet Count 207 x10^3/uL (140-400) Sodium Level 141 mmol/L (136-145) Potassium Level 3.9 mmol/L (3.5-5.1) Chloride Level 107 mmol/L (98-107) Carbon Dioxide Level 27 mmol/L (21-32) Anion Gap 7 (6-14) Blood Urea Nitrogen 19 mg/dL (7-20) Creatinine 1.9 mg/dL (0.6-1.0) Estimated GFR (Cockcroft-Gault) 25.8 Glucose Level 93 mg/dL (70-99) Calcium Level 8.1 mg/dL (8.5-10.1) Phosphorus Level 2.5 mg/dL (2.6-4.7) Albumin 2.3 g/dL (3.4-5.0) Laboratory Tests Test 06/13/19 02:50 White Blood Count 7.5 x10^3/uL (4.0-11.0) Red Blood Count 3.18 x10^6/uL (3.50-5.40) Hemoglobin 9.6 g/dL (12.0-15.5) Hematocrit 28.7 % (36.0-47.0) Mean Corpuscular Volume 91 fL (79-100) Mean Corpuscular Hemoglobin 30 pg (25-35) Mean Corpuscular Hemoglobin Concent 34 g/dL (31-37) Red Cell Distribution Width 13.4 % (11.5-14.5) Platelet Count 207 x10^3/uL (140-400) Sodium Level 141 mmol/L (136-145) Potassium Level 3.9 mmol/L (3.5-5.1) Chloride Level 107 mmol/L (98-107) Carbon Dioxide Level 27 mmol/L (21-32) Anion Gap 7 (6-14) Blood Urea Nitrogen 19 mg/dL (7-20) Creatinine 1.9 mg/dL (0.6-1.0) Estimated GFR (Cockcroft-Gault) 25.8 Glucose Level 93 mg/dL (70-99) Calcium Level 8.1 mg/dL (8.5-10.1) Phosphorus Level 2.5 mg/dL (2.6-4.7) Albumin 2.3 g/dL (3.4-5.0) Medications Current Medications Ondansetron HCl (Zofran) 4 mg 1X ONCE IV Last administered on 06/09/19at 17:11; Start 06/09/19 at 17:15; Stop 06/09/19 at 17:16; Status DC Meclizine HCl (Antivert) 25 mg 1X ONCE PO Last administered on 06/09/19at 17:11; Start 06/09/19 at 17:15; Stop 06/09/19 at 17:16; Status DC Ondansetron HCl (Zofran) 4 mg PRN Q8HRS PRN IV NAUSEA/VOMITING; Start 06/09/19 at 18:00; Stop 06/10/19 at 08:50; Status DC Sodium Chloride 1,000 ml @ 125 mls/hr 1X ONCE IV Last administered on 06/09/19at 18:42; Start 06/09/19 at 18:00; Stop 06/10/19 at 01:59; Status DC Sodium Chloride 1,000 ml @ 100 mls/hr 1X ONCE IV Last administered on 06/09/19at 19:30; Start 06/09/19 at 19:30; Stop 06/10/19 at 05:29; Status DC Nicotine (Nicoderm Cq 14mg) 1 patch PRN DAILY PRN TD SMOKING CESSATION; Start 06/09/19 at 20:15 Acetaminophen (Tylenol) 650 mg PRN Q6HRS PRN PO MILD PAIN 1-3 Last administered on 06/10/19at 03:57; Start 06/10/19 at 03:30; Stop 06/10/19 at 08:52; Status DC Ondansetron HCl (Zofran) 4 mg PRN Q6HRS PRN IV NAUSEA/VOMITING Last administered on 06/10/19 16:46; Start 06/10/19 at 09:00 Acetaminophen (Tylenol) 500 mg PRN Q6HRS PRN PO MILD PAIN / TEMP; Start 06/10/19 at 09:00 Acetaminophen/ Codeine Phosphate (Tylenol #3) 1 tab PRN Q6HRS PRN PO MODERATE PAIN Last administered on 06/13/19 03:00; Start 06/10/19 at 09:00 Meclizine HCl (Antivert) 25 mg PRN Q6HRS PRN PO DIZZINESS; Start 06/10/19 at 09:00 Cyclobenzaprine HCl (Flexeril) 10 mg TID PO Last administered on 06/12/19 20:59; Start 06/10/19 at 09:00 Levothyroxine Sodium (Synthroid) 137 mcg DAILY06 PO Last administered on 06/13/19 03:00; Start 06/10/19 at 09:00 Sodium Chloride 1,000 ml @ 100 mls/hr Q10H IV Last administered on 06/13/19 07:00; Start 06/10/19 at 09:00 Lidocaine/Sodium Bicarbonate (Buffered Lidocaine 1%) 3 ml STK-MED ONCE .ROUTE ; Start 06/10/19 at 12:10; Stop 06/10/19 at 12:11; Status DC Lidocaine/Sodium Bicarbonate (Buffered Lidocaine 1%) 6 ml 1X ONCE INJ Last administered on 06/10/19 12:30; Start 06/10/19 at 12:30; Stop 06/10/19 at 12:31; Status DC Loperamide HCl (Imodium) 2 mg PRN Q15MIN PRN PO DIARRHEA Last administered on 06/10/19 23:41; Start 06/10/19 at 15:15 Sodium Chloride 1,000 ml @ 1,000 mls/hr Q1H PRN IV hypotension; Start 06/10/19 at 15:39; Stop 06/10/19 at 21:38; Status DC Diphenhydramine HCl (Benadryl) 25 mg 1X PRN PRN IV ITCHING; Start 06/10/19 at 15:45; Stop 06/11/19 at 15:44; Status DC Diphenhydramine HCl (Benadryl) 25 mg 1X PRN PRN IV ITCHING; Start 06/10/19 at 15:45; Stop 06/11/19 at 15:44; Status DC Sodium Chloride 1,000 ml @ 400 mls/hr Q2H30M PRN IV PATENCY; Start 06/10/19 at 15:39; Stop 06/11/19 at 03:38; Status DC Info (PHARMACY MONITORING -- do not chart) 1 each PRN DAILY PRN MC SEE COMMENTS; Start 06/10/19 at 15:45; Stop 06/13/19 at 10:07; Status DC Sodium Chloride 1,000 ml @ 1,000 mls/hr Q1H PRN IV hypotension; Start 06/11/19 at 07:36; Stop 06/11/19 at 13:35; Status DC Sodium Chloride 1,000 ml @ 400 mls/hr Q2H30M PRN IV PATENCY; Start 06/11/19 at 07:36; Stop 06/11/19 at 19:35; Status DC Info (PHARMACY MONITORING -- do not chart) 1 each PRN DAILY PRN MC SEE COMMENTS; Start 06/11/19 at 07:45; Status UNV Info (PHARMACY MONITORING -- do not chart) 1 each PRN DAILY PRN MC SEE COMMENTS; Start 06/11/19 at 07:45; Status UNV Diphenhydramine HCl (Benadryl) 25 mg PRN QHS PRN PO INSOMNIA; Start 06/13/19 at 08:00 Lidocaine/ Epinephrine (LIDOCAINE 1%-EPI 1:100,000 Multi-Dose) 20 ml STK-MED ONCE .ROUTE ; Start 06/13/19 at 08:42; Stop 06/13/19 at 08:43; Status DC Cefazolin Sodium 50 ml @ As Directed STK-MED ONCE IV ; Start 06/13/19 at 08:51; Stop 06/13/19 at 08:52; Status DC Midazolam HCl (Versed) 2 mg STK-MED ONCE .ROUTE ; Start 06/13/19 at 08:51; Stop 06/13/19 at 08:52; Status DC Fentanyl Citrate (Fentanyl 2ml Vial) 100 mcg STK-MED ONCE .ROUTE ; Start 06/13/19 at 08:52; Stop 06/13/19 at 08:53; Status DC Midazolam HCl (Versed) 2 mg 1X ONCE IV Last administered on 06/13/19at 09:00; Start 06/13/19 at 09:00; Stop 06/13/19 at 09:01; Status DC Fentanyl Citrate (Fentanyl 2ml Vial) 100 mcg 1X ONCE IV Last administered on 06/13/19at 09:00; Start 06/13/19 at 09:00; Stop 06/13/19 at 09:01; Status DC Lidocaine/ Epinephrine (LIDOCAINE 1%-EPI 1:100,000 Multi-Dose) 20 ml 1X ONCE IJ Last administered on 06/13/19at 09:00; Start 06/13/19 at 09:00; Stop 06/13/19 at 09:01; Status DC Cefazolin Sodium 50 ml @ 100 mls/hr 1X ONCE IV Last administered on 06/13/19at 09:10; Start 06/13/19 at 09:00; Stop 06/13/19 at 09:29; Status DC Sodium Chloride 1,000 ml @ 1,000 mls/hr Q1H PRN IV hypotension; Start 06/13/19 at 10:02; Stop 06/13/19 at 16:01 Albumin Human 200 ml @ 200 mls/hr 1X PRN PRN IV Hypotension; Start 06/13/19 at 10:15; Stop 06/13/19 at 16:14 Sodium Chloride (Normal Saline Flush) 10 ml 1X PRN PRN IV AP catheter pack; Start 06/13/19 at 10:15; Stop 06/14/19 at 10:14 Sodium Chloride (Normal Saline Flush) 10 ml 1X PRN PRN IV REHABILITATION PROGRAM COORDINATOR catheter pack; Start 06/13/19 at 10:15; Stop 06/14/19 at 10:14 Sodium Chloride 1,000 ml @ 400 mls/hr Q2H30M PRN IV PATENCY; Start 06/13/19 at 10:02; Stop 06/13/19 at 22:01 Info (PHARMACY MONITORING -- do not chart) 1 each PRN DAILY PRN MC SEE COMMENTS; Start 06/13/19 at 10:15; Status UNV Info (PHARMACY MONITORING -- do not chart) 1 each PRN DAILY PRN MC SEE COMMENTS ; Start 06/13/19 at 10:15 Active Scripts Active Reported Lisinopril 40 Mg Tablet 1 Tab PO DAILY Cyclobenzaprine Hcl 10 Mg Tablet 1 Tab PO TID Atenolol 50 Mg Tablet 1 Tab PO DAILY Levothyroxine Sodium 137 Mcg Tablet 1 Tab PO DAILY Meloxicam 7.5 Mg Tablet 7.5 Mg PO DAILY Vitals/I & O Vital Sign - Last 24 Hours 06/12/19 06/12/19 06/12/19 06/12/19 15:00 19:00 19:45 23:02 Temp 98.4 97.9 97.9 98.4 97.9 97.9 Pulse 83 91 91 Resp 16 16 17 B/P (MAP) 125/63 (83) 114/59 (77) 132/67 (88) Pulse Ox 97 99 100 O2 Delivery Room Air Room Air Room Air Room Air 06/13/19 06/13/19 06/13/19 06/13/19 02:56 03:00 04:00 07:00 Temp 97.7 97.7 97.7 97.7 Pulse 91 83 Resp 20 20 20 14 B/P (MAP) 148/77 (100) 142/64 (90) Pulse Ox 95 98 O2 Delivery Room Air Room Air Room Air Room Air 06/13/19 06/13/19 06/13/19 08:00 09:00 09:38 Pulse 99 Resp 16 16 Pulse Ox 95 O2 Delivery Room Air Nasal Cannula O2 Flow Rate 2.0 Intake and Output 06/12/19 06/12/19 06/13/19 14:59 22:59 06:59 Intake Total 750 ml 1450 ml 360 ml Balance 750 ml 1450 ml 360 ml LYDIA SANCHES MD Jun 13, 2019 12:11
--- NOTE | 2019-06-13 12:18 | RAD ---
Conversion of a right internal jugular temporary dialysis catheter to tunneled catheter 06/12/2019 2:00 AM Indication: Need for longer term dialysis access Discussion: The risks and benefits of the procedure were discussed the patient. Informed consent was obtained. Timeout procedure was performed. The right neck and chest prepped and draped using sterile barrier technique. All elements of maximal sterile barrier technique including the use of a cap, mask, sterile gown, sterile gloves, large sterile sheet, appropriate hand hygiene, and 2% chlorhexidine for cutaneous antisepsis (or acceptable alternative antiseptic per current guidelines) were followed for this procedure. Fluoroscopic evaluation demonstrates the pre-existing catheter to be in the appropriate position. A guidewire was advanced through the pre-existing catheter, into the IVC. A tunneled dialysis catheter was advanced from a small dermatotomy several inches inferior to the right clavicle to the access site. The pre-existing catheter was removed over a wire. A peel-away sheath was placed. The wire was removed and the new catheter was advanced through the peel-away sheath such that its catheter tip was at the mid right atrium with the patient supine. The new catheter was found to flush and aspirate normally. The catheter was secured in place. Sterile dressings were applied. Total fluoroscopy time: 0.6 minutes Dose area product: 0.1 Gycmn2 The procedure was performed under conscious sedation including continuous cardiopulmonary monitoring via a dedicated sedation nurse. [id number] sedation time: 20 minutes Impression: Conversion of a temporary dialysis catheter to a tunneled dialysis catheter as described
--- NOTE | 2019-06-13 14:58 | NUR ---
[facility] following up with pt dc plan. Per Dr request, [facility] phoned and faxed referral to [facility] to set up outpatient dialysis, , . Pt would like [facility]. [facility] will await acceptance decision and proceed accordingly.
[2019-06-13 15:00] VITALS: BP 116/49
[2019-06-13 19:00] VITALS: BP 171/89
[2019-06-13 23:00] VITALS: BP 145/73
[2019-06-14 03:00] VITALS: BP 151/81
[2019-06-14 04:40] LABS: HEMATOCRIT 28.9 % (36.0-47.0); HEMOGLOBIN 9.7 g/dL (12.0-15.5)
[2019-06-14 05:06] LABS: ALBUMIN 2.2 g/dL (3.4-5.0); CALCIUM 7.9 mg/dL (8.5-10.1); CREATININE 1.3 mg/dL (0.6-1.0); PHOSPHORUS 1.9 mg/dL (2.6-4.7); POTASSIUM 4.1 mmol/L (3.5-5.1)
[2019-06-14] MEDS: LEVOTHYROXINE 137 MCG TABLET PO SCH (06:14)
[2019-06-14 07:00] VITALS: BP 195/79
[2019-06-14] MEDS ORDERED: FOLI1CAP10 PO (07:48)
[2019-06-14] MEDS: IV NORMAL SALINE 1000ML BAG 1,000 ML IV SCH (08:25)
[2019-06-14] MEDS: CYCLOBENZAPRINE 10 MG TABLET. PO SCH (08:26)
[2019-06-14] MEDS ORDERED: cloNIDine HCL 0.1 MG TABLET PO PRN (08:45)
[2019-06-14] MEDS ORDERED: cloNIDine HCL 0.1 MG TABLET PO ONE (08:45)
[2019-06-14] MEDS ORDERED: ATENOLOL 50 MG TABLET. PO SCH (09:00)
--- NOTE | 2019-06-14 09:38 | PDOC3 ---
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 Diarrhea �4 days, resolved- c diff neg Emesis times few days, resolved Hypertension, controlled Hyponatremia is smoker HArd of hearing Final Diagnosis Problems Medical Problems: (1) Acute on chronic renal failure Status: Acute (2) Dizziness Status: Acute (3) Hypotension Status: Acute Brief Hospital Course Allergies Allergies Coded Allergies Type Severity Reaction Last Updated Verified No Known Drug Allergies 06/09/19 No Vital Signs Vital Signs Date Time Temp Pulse Resp B/P (MAP) Pulse Ox O2 Delivery O2 Flow Rate FiO2 06/14/19 09:00 94 195/79 06/14/19 07:00 97.8 18 98 Room Air 97.8 06/13/19 09:38 2.0 Lab Results Laboratory Tests Test 06/13/19 02:50 06/14/19 03:50 White Blood Count 7.5 x10^3/uL (4.0-11.0) Red Blood Count 3.18 x10^6/uL (3.50-5.40) Hemoglobin 9.6 g/dL (12.0-15.5) 9.7 g/dL (12.0-15.5) Hematocrit 28.7 % (36.0-47.0) 28.9 % (36.0-47.0) Mean Corpuscular Volume 91 fL (79-100) Mean Corpuscular Hemoglobin 30 pg (25-35) Mean Corpuscular Hemoglobin Concent 34 g/dL (31-37) 34 g/dL (31-37) Red Cell Distribution Width 13.4 % (11.5-14.5) Platelet Count 207 x10^3/uL (140-400) Sodium Level 141 mmol/L (136-145) 140 mmol/L (136-145) Potassium Level 3.9 mmol/L (3.5-5.1) 4.1 mmol/L (3.5-5.1) Chloride Level 107 mmol/L (98-107) 106 mmol/L (98-107) Carbon Dioxide Level 27 mmol/L (21-32) 27 mmol/L (21-32) Anion Gap 7 (6-14) 7 (6-14) Blood Urea Nitrogen 19 mg/dL (7-20) 10 mg/dL (7-20) Creatinine 1.9 mg/dL (0.6-1.0) 1.3 mg/dL (0.6-1.0) Estimated GFR (Cockcroft-Gault) 25.8 40.0 Glucose Level 93 mg/dL (70-99) 81 mg/dL (70-99) Calcium Level 8.1 mg/dL (8.5-10.1) 7.9 mg/dL (8.5-10.1) Phosphorus Level 2.5 mg/dL (2.6-4.7) 1.9 mg/dL (2.6-4.7) Albumin 2.3 g/dL (3.4-5.0) 2.2 g/dL (3.4-5.0) Laboratory Tests Test 06/14/19 03:50 Hemoglobin 9.7 g/dL (12.0-15.5) Hematocrit 28.9 % (36.0-47.0) Mean Corpuscular Hemoglobin Concent 34 g/dL (31-37) Sodium Level 140 mmol/L (136-145) Potassium Level 4.1 mmol/L (3.5-5.1) Chloride Level 106 mmol/L (98-107) Carbon Dioxide Level 27 mmol/L (21-32) Anion Gap 7 (6-14) Blood Urea Nitrogen 10 mg/dL (7-20) Creatinine 1.3 mg/dL (0.6-1.0) Estimated GFR (Cockcroft-Gault) 40.0 Glucose Level 81 mg/dL (70-99) Calcium Level 7.9 mg/dL (8.5-10.1) Phosphorus Level 1.9 mg/dL (2.6-4.7) Albumin 2.2 g/dL (3.4-5.0) Brief Hospital Course Ms. Shepherd is a 74 old who already had some CKD being monitored as outpatient by her PCP., comes in because of hyperkalemia and renal failure and some oliguria. Adding injury to insult was diarrhea x 4 days SANDBLASTER STONE, but that is C. difficile negative and has resolved Unfortunately needing new outpatient HD. new ESRD and we have set that up Blood pressure initially was on the low side hence, I was holding atenolol but now better so resume that. I Asked to stop her home lisinopril and Mobic because of this new ESRD dialysis Did well with physical therapy and no PT needs Discharge disposition home with daughter Consults renal New procedures tunneled HD catheter dc < 30 mins Rc nephrovite on chart Discharge Information Condition at Discharge: Improved, Stable Disposition/Orders: D/C to Home Scheduled Atenolol (Atenolol) 50 Mg Tablet, 1 TAB PO DAILY for Blood pressure, #90 Ref 1 (Reported) Entered as Reported by: MIGUEL REHMAN RN on 06/10/192 Last Taken: UNKNOWN on Unknown Date & Time Last Action: Continued on 06/14/19 0847 by JARET GLASS Cyclobenzaprine Hcl (Cyclobenzaprine Hcl) 10 Mg Tablet, 1 TAB PO TID for muscle aches, #90 (Reported) Entered as Reported by: MIGUEL REHMAN RN on 06/10/192 Last Taken: UNKNOWN on Unknown Date & Time Last Action: Continued on 06/10/19 0850 by JARET GLASS Folic Acid/Vitamin B Comp W-C (Renal Caps Softgel) 1 Mg Capsule, 1 CAP PO DAILY for esrd, #30 Ref 5 Prescribed by: JARET GLASS on 06/14/19 0748 Levothyroxine Sodium (Levothyroxine Sodium) 137 Mcg Tablet, 1 TAB PO DAILY for Hypothyroid, #30 Ref 5 (Reported) Entered as Reported by: MIGUEL REHMAN RN on 06/10/192 Last Taken: UNKNOWN on Unknown Date & Time Last Action: Continued on 06/10/19 0850 by JARET GLASS Lisinopril (Lisinopril) 40 Mg Tablet, 1 TAB PO DAILY for blood pressure, #90 Ref 1 (Reported) Entered as Reported by: MIGUEL REHMAN RN on 06/10/192 Last Taken: UNKNOWN on Unknown Date & Time Last Action: HELD on 06/14/19846 by JARET GLASS Meloxicam (Meloxicam) 7.5 Mg Tablet, 7.5 MG PO DAILY for arthritis, (Reported) Entered as Reported by: MIGUEL REHMAN RN on 06/10/192 Last Taken: UNKNOWN on Unknown Date & Time Last Action: HELD on 06/14/19846 by JARET LAW MD Jun 14, 2019 09:38
[2019-06-14 11:00] VITALS: BP 149/75
--- NOTE | 2019-06-14 12:06 | PDOC ---
Renal-Progress Notes Subjective Notes Notes NO NEW COMPLAINTS History of Present Illness Hx of present illness STABLE Vitals Vitals Vital Signs Date Time Temp Pulse Resp B/P (MAP) Pulse Ox O2 Delivery O2 Flow Rate FiO2 06/14/19 11:00 97.8 87 18 149/75 (99) 99 Room Air 97.8 06/14/19 08:00 2.0 Weight Weight [ ] I.O. Intake and Output Intake and Output 06/14/19 06:59 Intake Total 1000 ml Balance 1000 ml Intake Oral 0 ml IV Total 1000 ml # Voids 2 # Bowel Movements 1 Labs Labs Laboratory Tests Test 06/14/19 03:50 Hemoglobin 9.7 g/dL (12.0-15.5) Hematocrit 28.9 % (36.0-47.0) Mean Corpuscular Hemoglobin Concent 34 g/dL (31-37) Sodium Level 140 mmol/L (136-145) Potassium Level 4.1 mmol/L (3.5-5.1) Chloride Level 106 mmol/L (98-107) Carbon Dioxide Level 27 mmol/L (21-32) Anion Gap 7 (6-14) Blood Urea Nitrogen 10 mg/dL (7-20) Creatinine 1.3 mg/dL (0.6-1.0) Estimated GFR (Cockcroft-Gault) 40.0 Glucose Level 81 mg/dL (70-99) Calcium Level 7.9 mg/dL (8.5-10.1) Phosphorus Level 1.9 mg/dL (2.6-4.7) Albumin 2.2 g/dL (3.4-5.0) Review of Systems Constitutional: yes: weakness, alert, oriented Ears/Nose/Throat: Yes: no symptom reported Eyes: Yes: no symptom reported Pulmonary: Yes no symptom reported Cardiovascular: Yes no symptom reported Gastrointestional: Yes: no symptom reported Genitourinary: Yes: no symptom reported Musculoskeletal: Yes: no symptom reported Psychiatric/Neurological: Yes: no symptom reported Endocrine: Yes: no symptom reported Physical Exam General Appearance: no apparent distress Skin: warm Respiratory: bilateral CTA Heart: S1S2 Abdomen: soft, bowel sounds present Genitourinary: bladder flat Extremities: pulses present Neurology: alert Assessment Assessment IMP NEW ESRD ANEMIA HTN S/P TUNNELED HD CATHETER PLAN HD [facility] OP HD AT [facility] SET UP WILL NEED PERMANENT ACCESS AT SOME POINT RACHAEL BLEDSOE MD Jun 14, 2019 12:06
--- NOTE | 2019-06-14 12:15 | PDOC ---
PROGRESS NOTES Assessment Problems Medical Problems: (1) Acute on chronic renal failure Status: Acute (2) Dizziness Status: Acute (3) Hypotension Status: Acute Metabolic encephalopathy. Dizziness, resolved Syncope Falls. Left temporal calcified meningioma No evidence of acute CVA Plan Okay for discharge Treat medical diseases, No plans for outpatient dialysis. Correct electrolytes imbalances. See Neurosurgery as out-patient for likely meningioma, or simply follow with serial MRI studies say every 6-12 months. Discussed with patient Subjective No complaints Objective Vital Signs Date Time Temp Pulse Resp B/P (MAP) Pulse Ox O2 Delivery O2 Flow Rate FiO2 06/14/19 11:00 97.8 87 18 149/75 (99) 99 Room Air 97.8 06/14/19 08:00 2.0 Intake and Output 06/14/19 07:00 Intake Total 1000 ml Balance 1000 ml Intake Oral 0 ml IV Total 1000 ml # Voids 2 # Bowel Movements 1 PHYSICAL EXAM Alert. Oriented to time, place and person. PERRL. EOMI. CN: no focal findings. Muscle tone: normal. Muscle strength: 5-/5 DTR: 1-2+ Plantar reflex: flexor Gait: not examined in bed. Sensory exam: no abnormal findings. No cerebellar signs elicited. Review of Relevant I have reviewed the following items le (where applicable) has been applied. Labs Laboratory Tests Test 06/13/19 02:50 06/14/19 03:50 White Blood Count 7.5 x10^3/uL (4.0-11.0) Red Blood Count 3.18 x10^6/uL (3.50-5.40) Hemoglobin 9.6 g/dL (12.0-15.5) 9.7 g/dL (12.0-15.5) Hematocrit 28.7 % (36.0-47.0) 28.9 % (36.0-47.0) Mean Corpuscular Volume 91 fL (79-100) Mean Corpuscular Hemoglobin 30 pg (25-35) Mean Corpuscular Hemoglobin Concent 34 g/dL (31-37) 34 g/dL (31-37) Red Cell Distribution Width 13.4 % (11.5-14.5) Platelet Count 207 x10^3/uL (140-400) Sodium Level 141 mmol/L (136-145) 140 mmol/L (136-145) Potassium Level 3.9 mmol/L (3.5-5.1) 4.1 mmol/L (3.5-5.1) Chloride Level 107 mmol/L (98-107) 106 mmol/L (98-107) Carbon Dioxide Level 27 mmol/L (21-32) 27 mmol/L (21-32) Anion Gap 7 (6-14) 7 (6-14) Blood Urea Nitrogen 19 mg/dL (7-20) 10 mg/dL (7-20) Creatinine 1.9 mg/dL (0.6-1.0) 1.3 mg/dL (0.6-1.0) Estimated GFR (Cockcroft-Gault) 25.8 40.0 Glucose Level 93 mg/dL (70-99) 81 mg/dL (70-99) Calcium Level 8.1 mg/dL (8.5-10.1) 7.9 mg/dL (8.5-10.1) Phosphorus Level 2.5 mg/dL (2.6-4.7) 1.9 mg/dL (2.6-4.7) Albumin 2.3 g/dL (3.4-5.0) 2.2 g/dL (3.4-5.0) Laboratory Tests Test 06/14/19 03:50 Hemoglobin 9.7 g/dL (12.0-15.5) Hematocrit 28.9 % (36.0-47.0) Mean Corpuscular Hemoglobin Concent 34 g/dL (31-37) Sodium Level 140 mmol/L (136-145) Potassium Level 4.1 mmol/L (3.5-5.1) Chloride Level 106 mmol/L (98-107) Carbon Dioxide Level 27 mmol/L (21-32) Anion Gap 7 (6-14) Blood Urea Nitrogen 10 mg/dL (7-20) Creatinine 1.3 mg/dL (0.6-1.0) Estimated GFR (Cockcroft-Gault) 40.0 Glucose Level 81 mg/dL (70-99) Calcium Level 7.9 mg/dL (8.5-10.1) Phosphorus Level 1.9 mg/dL (2.6-4.7) Albumin 2.2 g/dL (3.4-5.0) Medications Current Medications Ondansetron HCl (Zofran) 4 mg 1X ONCE IV Last administered on 06/09/19at 17:11; Start 06/09/19 at 17:15; Stop 06/09/19 at 17:16; Status DC Meclizine HCl (Antivert) 25 mg 1X ONCE PO Last administered on 06/09/19at 17:11; Start 06/09/19 at 17:15; Stop 06/09/19 at 17:16; Status DC Ondansetron HCl (Zofran) 4 mg PRN Q8HRS PRN IV NAUSEA/VOMITING; Start 06/09/19 at 18:00; Stop 06/10/19 at 08:50; Status DC Sodium Chloride 1,000 ml @ 125 mls/hr 1X ONCE IV Last administered on 06/09/19at 18:42; Start 06/09/19 at 18:00; Stop 06/10/19 at 01:59; Status DC Sodium Chloride 1,000 ml @ 100 mls/hr 1X ONCE IV Last administered on 06/09/19 at 19:30; Start 06/09/19 at 19:30; Stop 06/10/19 at 05:29; Status DC Nicotine (Nicoderm Cq 14mg) 1 patch PRN DAILY PRN TD SMOKING CESSATION; Start 06/09/19 at 20:15 Acetaminophen (Tylenol) 650 mg PRN Q6HRS PRN PO MILD PAIN 1-3 Last administered on 06/10/19at 03:57; Start 06/10/19 at 03:30; Stop 06/10/19 at 08:52; Status DC Ondansetron HCl (Zofran) 4 mg PRN Q6HRS PRN IV NAUSEA/VOMITING Last administered on 06/10/19at 16:46; Start 06/10/19 at 09:00 Acetaminophen (Tylenol) 500 mg PRN Q6HRS PRN PO MILD PAIN / TEMP; Start 06/10/19 at 09:00 Acetaminophen/ Codeine Phosphate (Tylenol #3) 1 tab PRN Q6HRS PRN PO MODERATE PAIN Last administered on 06/13/19at 20:40; Start 06/10/19 at 09:00 Meclizine HCl (Antivert) 25 mg PRN Q6HRS PRN PO DIZZINESS; Start 06/10/19 at 09:00 Cyclobenzaprine HCl (Flexeril) 10 mg TID PO Last administered on 06/14/19 08:26; Start 06/10/19 at 09:00 Levothyroxine Sodium (Synthroid) 137 mcg DAILY06 PO Last administered on 06/14/19 06:14; Start 06/10/19 at 09:00 Sodium Chloride 1,000 ml @ 100 mls/hr Q10H IV Last administered on 06/14/19 08:25; Start 06/10/19 at 09:00 Lidocaine/Sodium Bicarbonate (Buffered Lidocaine 1%) 3 ml STK-MED ONCE .ROUTE ; Start 06/10/19 at 12:10; Stop 06/10/19 at 12:11; Status DC Lidocaine/Sodium Bicarbonate (Buffered Lidocaine 1%) 6 ml 1X ONCE INJ Last administered on 06/10/19at 12:30; Start 06/10/19 at 12:30; Stop 06/10/19 at 12:31; Status DC Loperamide HCl (Imodium) 2 mg PRN Q15MIN PRN PO DIARRHEA Last administered on 06/10/19at 23:41; Start 06/10/19 at 15:15 Sodium Chloride 1,000 ml @ 1,000 mls/hr Q1H PRN IV hypotension; Start 06/10/19 at 15:39; Stop 06/10/19 at 21:38; Status DC Diphenhydramine HCl (Benadryl) 25 mg 1X PRN PRN IV ITCHING; Start 06/10/19 at 15:45; Stop 06/11/19 at 15:44; Status DC Diphenhydramine HCl (Benadryl) 25 mg 1X PRN PRN IV ITCHING; Start 06/10/19 at 15:45; Stop 06/11/19 at 15:44; Status DC Sodium Chloride 1,000 ml @ 400 mls/hr Q2H30M PRN IV PATENCY; Start 06/10/19 at 15:39; Stop 06/11/19 at 03:38; Status DC Info (PHARMACY MONITORING -- do not chart) 1 each PRN DAILY PRN MC SEE COMMENTS; Start 06/10/19 at 15:45; Stop 06/13/19 at 10:07; Status DC Sodium Chloride 1,000 ml @ 1,000 mls/hr Q1H PRN IV hypotension; Start 06/11/19 at 07:36; Stop 06/11/19 at 13:35; Status DC Sodium Chloride 1,000 ml @ 400 mls/hr Q2H30M PRN IV PATENCY; Start 06/11/19 at 07:36; Stop 06/11/19 at 19:35; Status DC Info (PHARMACY MONITORING -- do not chart) 1 each PRN DAILY PRN MC SEE COMMENTS; Start 06/11/19 at 07:45; Status UNV Info (PHARMACY MONITORING -- do not chart) 1 each PRN DAILY PRN MC SEE COMMENTS; Start 06/11/19 at 07:45; Status UNV Diphenhydramine HCl (Benadryl) 25 mg PRN QHS PRN PO INSOMNIA; Start 06/13/19 at 08:00 Lidocaine/ Epinephrine (LIDOCAINE 1%-EPI 1:100,000 Multi-Dose) 20 ml STK-MED ONCE .ROUTE ; Start 06/13/19 at 08:42; Stop 06/13/19 at 08:43; Status DC Cefazolin Sodium 50 ml @ As Directed STK-MED ONCE IV ; Start 06/13/19 at 08:51; Stop 06/13/19 at 08:52; Status DC Midazolam HCl (Versed) 2 mg STK-MED ONCE .ROUTE ; Start 06/13/19 at 08:51; Stop 06/13/19 at 08:52; Status DC Fentanyl Citrate (Fentanyl 2ml Vial) 100 mcg STK-MED ONCE .ROUTE ; Start 06/13/19 at 08:52; Stop 06/13/19 at 08:53; Status DC Midazolam HCl (Versed) 2 mg 1X ONCE IV Last administered on 06/13/19at 09:00; Start 06/13/19 at 09:00; Stop 06/13/19 at 09:01; Status DC Fentanyl Citrate (Fentanyl 2ml Vial) 100 mcg 1X ONCE IV Last administered on 06/13/19at 09:00; Start 06/13/19 at 09:00; Stop 06/13/19 at 09:01; Status DC Lidocaine/ Epinephrine (LIDOCAINE 1%-EPI 1:100,000 Multi-Dose) 20 ml 1X ONCE IJ Last administered on 06/13/19at 09:00; Start 06/13/19 at 09:00; Stop 06/13/19 at 09:01; Status DC Cefazolin Sodium 50 ml @ 100 mls/hr 1X ONCE IV Last administered on 06/13/19at 09:10; Start 06/13/19 at 09:00; Stop 06/13/19 at 09:29; Status DC Sodium Chloride 1,000 ml @ 1,000 mls/hr Q1H PRN IV hypotension; Start 06/13/19 at 10:02; Stop 06/13/19 at 16:01; Status DC Albumin Human 200 ml @ 200 mls/hr 1X PRN PRN IV Hypotension; Start 06/13/19 at 10:15; Stop 06/13/19 at 16:14; Status DC Sodium Chloride (Normal Saline Flush) 10 ml 1X PRN PRN IV AP catheter pack; Start 06/13/19 at 10:15; Stop 06/13/19 at 19:00; Status DC Sodium Chloride (Normal Saline Flush) 10 ml 1X PRN PRN IV SPA CONCIERGE catheter pack; Start 06/13/19 at 10:15; Stop 06/13/19 at 19:00; Status DC Sodium Chloride 1,000 ml @ 400 mls/hr Q2H30M PRN IV PATENCY; Start 06/13/19 at 10:02; Stop 06/13/19 at 22:01; Status DC Info (PHARMACY MONITORING -- do not chart) 1 each PRN DAILY PRN MC SEE COMMENTS; Start 06/13/19 at 10:15; Status UNV Info (PHARMACY MONITORING -- do not chart) 1 each PRN DAILY PRN MC SEE COMMENTS; Start 06/13/19 at 10:15 Clonidine HCl (Catapres) 0.1 mg 1X ONCE PO Last administered on 06/14/19at 08:45; Start 06/14/19 at 08:45; Stop 06/14/19 at 08:53; Status DC Clonidine HCl (Catapres) 0.1 mg PRN Q1HR PRN PO HYPERTENSION; Start 06/14/19 at 08:45 Atenolol (Tenormin) 50 mg DAILY PO Last administered on 06/14/19at 09:00; Start 06/14/19 at 09:00 Active Scripts Active Renal Caps Softgel (Folic Acid/Vitamin B Comp W-C) 1 Mg Capsule 1 Cap PO DAILY Reported Lisinopril 40 Mg Tablet 1 Tab PO DAILY Cyclobenzaprine Hcl 10 Mg Tablet 1 Tab PO TID Atenolol 50 Mg Tablet 1 Tab PO DAILY Levothyroxine Sodium 137 Mcg Tablet 1 Tab PO DAILY Meloxicam 7.5 Mg Tablet 7.5 Mg PO DAILY Vitals/I & O Vital Sign - Last 24 Hours 06/13/19 06/13/19 06/13/19 06/13/19 15:00 19:00 20:00 20:40 Temp 97.6 98.5 97.6 98.5 Pulse 77 92 Resp 12 20 20 B/P (MAP) 116/49 (71) 171/89 (116) Pulse Ox 96 100 O2 Delivery Room Air Room Air Room Air 06/13/19 06/13/19 06/14/19 06/14/19 21:40 23:00 03:00 07:00 Temp 98.3 98.3 97.8 98.3 98.3 97.8 Pulse 90 96 94 Resp 20 16 18 18 B/P (MAP) 145/73 (97) 151/81 (104) 195/79 (117) Pulse Ox 93 100 98 O2 Delivery Room Air Room Air 06/14/19 06/14/19 06/14/19 06/14/19 08:00 08:45 09:00 11:00 Temp 97.8 97.8 Pulse 94 94 87 Resp 18 B/P (MAP) 195/79 195/79 149/75 (99) Pulse Ox 99 O2 Delivery Room Air Room Air O2 Flow Rate 2.0 Intake and Output 06/13/19 06/13/19 06/14/19 15:00 23:00 07:00 Intake Total 0 ml 1000 ml Balance 0 ml 1000 ml LYDIA SANCHES MD Jun 14, 2019 12:15
--- NOTE | 2019-06-14 12:35 | NUR ---
SS following up with discharge planning. SS contacted [facility] requesting update on chair time as pt has discharge order to home. [facility] reported that Dr. Angeles had not approved chair time yet at [facility]. SS contacted Dr. Angeles via cell phone and Dr. Angeles reported that he approved pt yesterday. SS contacted [facility], , and spoke with Khloe. Khloe reported that pt was approved and requested that pt come to facility tomorrow to complete paperwork. She reported that pt had a Thursday, , Thursday chair time and reported that pt's first chair time was 06/16/2019 at 1045. She reported from that point on pt's regular chair time will be at 0600. Pt's RN notified.
--- NOTE | 2019-06-14 13:53 | NUR ---
Patient was discharged from the unit at 1355. Patient refused to be escorted off the unit in a wheelchair and left walking with her daughter. Patient left with her belongings, prescription and discharge paperwork. Patient and her daughter had no questions regarding the discharge information provided to them and will be following up with [facility] upon departure today.
== END 2019-06-14 13:55 | disposition home or self-care (01) | DRG 673 ==
LOC: ER 15:24 → 5 SOUTH 17:14
PROVIDERS: ADMIT Internal Medicine; ATTEND Internal Medicine
PROC: 5A1D70Z Performance of Urinary Filtration, Intermittent, Less than 6 Hours Per Day (ICD-10-PCS; 2019-06-10)
PROC: 02HV33Z Insertion of Infusion Device into Superior Vena Cava, Percutaneous Approach (ICD-10-PCS; 2019-06-10)
PROC: B5181ZA Fluoroscopy of Superior Vena Cava using Low Osmolar Contrast, Guidance (ICD-10-PCS; 2019-06-10)
PROC: B543ZZA Ultrasonography of Right Jugular Veins, Guidance (ICD-10-PCS; 2019-06-10)
PROC: 5A1D70Z Performance of Urinary Filtration, Intermittent, Less than 6 Hours Per Day (ICD-10-PCS; 2019-06-11)
PROC: 0JH63XZ Insertion of Tunneled Vascular Access Device into Chest Subcutaneous Tissue and Fascia, Percutaneous Approach (ICD-10-PCS; principal; 2019-06-12)
PROC: 02PYX3Z Removal of Infusion Device from Great Vessel, External Approach (ICD-10-PCS; 2019-06-12)
PROC: 02H633Z Insertion of Infusion Device into Right Atrium, Percutaneous Approach (ICD-10-PCS; 2019-06-12)
PROC: B2141ZZ Fluoroscopy of Right Heart using Low Osmolar Contrast (ICD-10-PCS; 2019-06-12)
PROC: 5A1D70Z Performance of Urinary Filtration, Intermittent, Less than 6 Hours Per Day (ICD-10-PCS; 2019-06-13)
DX: N17.0 Acute kidney failure with tubular necrosis (principal); G93.41 Metabolic encephalopathy; I12.0 Hypertensive chronic kidney disease with stage 5 chronic kidney disease or end stage renal disease; E87.1 Hypo-osmolality and hyponatremia; N18.6 End stage renal disease; I95.9 Hypotension, unspecified; D64.9 Anemia, unspecified; E03.9 Hypothyroidism, unspecified; E83.51 Hypocalcemia; E87.5 Hyperkalemia; R19.7 Diarrhea, unspecified; F17.210 Nicotine dependence, cigarettes, uncomplicated; H91.91 Unspecified hearing loss, right ear; D32.0 Benign neoplasm of cerebral meninges; M19.90 Unspecified osteoarthritis, unspecified site; Z79.899 Other long term (current) drug therapy; Z86.73 Personal history of transient ischemic attack (TIA), and cerebral infarction without residual deficits; Z99.2 Dependence on renal dialysis; Z91.81 History of falling; Z90.89 Acquired absence of other organs
CPT/HCPCS: 36415; 36556; 36581; 70450; 70551; 71045; 76770; 76937; 77001; 80048; 80053; 80069; 80307; 81001; 82553; 82962; 83735; 83880; 84100; 84443; 84484; 85014; 85018; 85025; 85027; 85610; 85730; 86704; 87340; 87493; 93005; 96361; 96374; 99152; C1750; C1769; C1892; J0690; J2250; J2405; J3010; J3490; J7030; J8597; 99285-25

== ENCOUNTER → 2021-03-29 | Outpatient (CLI) | payer MEDICARE ==
[~2021-03-29] MED LIST: ATEN50TA PO; CYCL10TA2 PO; FOLI0.8T30 PO; FOLI1CAP10 PO; LEVO137T3 PO; LISI-130 PO; LISI10TA16 PO; MELO7.5T29 PO
== END ==
LOC: LAB 08:28
PROVIDERS: ATTEND Internal Medicine Cardiovascular Disease
DX: Z01.812 Encounter for preprocedural laboratory examination (principal); Z20.822 Contact with and (suspected) exposure to COVID-19
CPT/HCPCS: U0003; U0005

== ENCOUNTER → 2021-04-01 | Outpatient (CLI) | payer MEDICARE ==
[~2021-04-01] VITALS: Ht 157.5 cm; Wt 65.8 kg
[2021-04-01] VITALS (10 sets, daily range): BP systolic 127–171; BP diastolic 58–88
[~2021-04-01] MED LIST changes: +ACETAMINOPHEN 325 MG TABLET. PO PRN; +ASPIRIN ENTERIC COATED 81 MG TABLET.DR. PO SCH; +CLOPIDOGREL BISULFATE 75 MG TABLET PO ONE; +CLOPIDOGREL BISULFATE 75 MG TABLET PO SCH; +CONTRAST GIVEN. MC PRN; +HEPARIN for IV BOLUS 10,000 UNIT/10 ML VIAL. IV ONE; +HEPARIN for IV BOLUS 10,000 UNIT/10 ML VIAL. ONE; +IODIXANOL 320 MG/ML 100 ML VIAL. IART ONE; +IODIXANOL 320 MG/ML 100 ML VIAL. ONE; +IV 1/2 NORMAL SALINE 1,000 ML IV SCH; +LIDOCAINE 1% Multi-Dose 20 ML VIAL. ONE; +MIDAZOLAM HCL/PF 2 MG/2 ML VIAL. IV ONE; +MIDAZOLAM HCL/PF 2 MG/2 ML VIAL. ONE; +NITROGLYCERIN 200 MCG/2 ML SYRINGE FOR CATH/VASC LAB. IART ONE; +fentaNYL PF VIAL 100 MCG/2 ML VIAL IV ONE; +fentaNYL PF VIAL 100 MCG/2 ML VIAL ONE
[2021-04-01 07:49] LABS: HEMATOCRIT 36.5 % (36.0-47.0); HEMOGLOBIN 12.3 g/dL (12.0-15.5); RED BLOOD COUNT 3.78 x10^6/uL (3.50-5.40); RED CELL DISTRIBUTION WIDTH 13.1 % (11.5-14.5); WHITE BLOOD COUNT 9.4 x10^3/uL (4.0-11.0)
[2021-04-01 07:55] LABS: CALCIUM 9.5 mg/dL (8.5-10.1); CREATININE 1.4 mg/dL (0.6-1.0); GFR 36.7; POTASSIUM 3.8 mmol/L (3.5-5.1)
[2021-04-01] MEDS: LIDOCAINE 1% Multi-Dose 20 ML VIAL. INJ ONE ×2 (08:40→08:42)
--- NOTE | 2021-04-01 10:21 | PDOC ---
MODERATE SEDATION ASSESSMENT RISKS/ALTERNATIVES Risks/Alternatives Risks and alternatives of this type of sedation and procedure discussed with: RISK/ALTERNATIVES: Patient H & P ON CHART H & P H & P on chart and reviewed for co-morbid conditions and appropriate labs. H&P ON CHART: Yes STATUS PREG STATUS ASSESSED: N/A MEDS/ALLERGIES REVIEWED Meds/Allergies Reviewed Medications and Allergies including time and route of recently administered narcotics and sedatives. MEDS/ALLERGIES REVIEWED: Yes ASA RATING ASA RATING: I AIRWAY ASSESSMENT Airway Assessment Airway patency, oral function limitations, presence of caps, crowns, dentures, partials, and ability to extend neck assessed. AIRWAY ASSESSMENT: Yes MALLAMPATI SCORE MALLAMPATI SCORE: II PRE-SEDATION ASSESSMENT PRE-SEDATION ASSESSMENT: Yes KEYLA LOVELL MD April 01, 2021 10:21
--- NOTE | 2021-04-01 12:22 | NUR ---
Patient's PIV remains intact-- per ECHO, VS stable. Patient being taken for ECHO at d/c. No bleeding at groin sites, no sign of hematoma. Patient calling transport home-- friend is driving. Instructions provided on site care, sedation. Patient verbalized understanding. Plavix 75mg daily, ASA 81mg daily called in to [facility] by YANIRA BURKETT per patient request.
--- NOTE | 2021-04-01 13:21 | CARD ---
MR#: [id number] Date of Study: 04/01/2021 Ordering Physician: KEYLA LOVELL, Referring Physician: KEYLA LOVELL, Tech: RT Marleni(R) APPROVED REPORT Patient StatusOUT-PATIENT Engineer Chief: RT Marleni(R) Procedure(s) performed: 1. Aortogram with bilateral lower extremity runoff 2. Successful orbital atherectomy/TOUCH UP WORKER to right superficial femoral artery and also to the right tibi operoneal trunk fl time: 22.4 mins dose: 34.76 gycm2 contrast: 103 ml moderate sedation: 96 mins INDICATION FOR PROCEDURE The indication(s) include : Peripheral artery disease with claudication. CASE TECHNIQUE After explaining the risks, benefits, and alternative options, informed consent was obtained from the patient. IV conscious sedation was used throughout procedure with appropriate monitoring and was per formed in the presence of a registered nurse who was an independent trained observer other than the timothy teague performing the procedure. During this case, Fluoroscopy and low osmolar contrast were used f or imaging. Specimen(s) Removed: No PROCEDURE NARRATIVE After explaining the risk, benefits and alternative options, informed consent was obtained from patie nt. Patient was brought to the cardiac Supervisor [employer] and both her groins were prepped and draped in the u sual fashion. 20 cc of 2% lidocaine was infiltrated into the skin and subcutaneous tissues of the [facility] groin for local anesthesia. Arterial access was obtained in the right common femoral artery and a 5 Trinidadian sheath was inserted. 5 Trinidadian Omni Flush catheter was then positioned in the distal desce nding aorta and aortoiliac angiography was performed. The catheter was then advanced over a guidewir e across the aortic augusta and with the tip position in the left superficial femoral artery, selectiv e left lower extremity angiography was performed. Contrast injections were performed through the she ath in the right groin for selective right lower extremity angiography. The following findings were noted: FINDINGS 1. No significant stenosis involving the distal descending aorta 2. The right common iliac artery showed 30 to 40% proximal segment stenosis without any pullback gra dient across it. The left common iliac artery did not show any significant stenosis. 3. No significant stenosis involving bilateral external iliac arteries. 4. No significant stenosis involving bilateral common femoral arteries. 5. The right superficial femoral artery showed two tandem 30% stenoses in the proximal segment. The mid to distal segment showed a critical 90% stenosis. The left superficial femoral artery showed 30 % long stenosis involving the mid segment. 6. No significant stenosis involving popliteal arteries bilaterally. 7. The right tibioperoneal trunk showed 90% stenosis. The right anterior tibial and peroneal arteri es did not show any significant stenosis. The right posterior tibial artery showed 100% chronic tota l occlusion proximally. 8. The left anterior tibial and peroneal arteries were patent without any significant stenosis. The left posterior tibial artery showed 100% chronic total occlusion proximally. INTERVENTION We decided to intervene on patient's right SFA and TP trunk via left groin access. Hemostasis in the right groin was achieved using Mynx closure device. Subsequently, 20 cc of 2% lidocaine was infiltr ated into the skin and subcutaneous tissues of left groin for local anesthesia. Arterial access was obtained in the left common femoral artery and a 6 Trinidadian 65 cm destination sheath was inserted. Thi s was advanced over the aortic augusta with the help of a 5 Trinidadian crossover catheter and the tip was positioned in the right common femoral artery. The stenosis in the right SFA and TP trunk were cross ed with a Viper guidewire. Multiple orbital atherectomy passes were then performed within both these lesions using CSI diamondback 1.5 orbital atherectomy catheter. Following this, the TP trunk was di lated with a 3.0 x 40 mm [employer] balloon and the right SFA lesion was dilated with a 5.0 x 40 m m [employer] balloon. Follow-up angiography showed resolution of the lesions with good distal cyndy w. Patient tolerated the procedure well. Hemostasis was achieved in the left groin using Angio-Seal . There were no immediate complications. Conclusion 1. 90% stenosis involving the right superficial femoral artery and 90% stenosis involving the right tibioperoneal trunk. No significant lesions needing intervention were noted in the left lower extrem ity. 2. Successful orbital atherectomy/TOUCH UP WORKER to the right SFA and the TP trunk. Recommendations Patient's right lower extremity claudication is secondary to the lesions described above and hence cuellar ve been intervened upon. Her pain in the dorsum of the left foot appears to be secondary to neuropat hy. No lesions needing intervention were noted in the left lower extremity. Recommend vascular risk factor modification and regular exercise regimen. Signed by : Keyla Lovell, Electronically Approved : 04/01/2021 13:21:35
--- NOTE | 2021-04-01 16:24 | CARD ---
MR#: [id number] Date of Study: 04/01/2021 Ordering Physician: KEYLA LOVELL, Referring Physician: KEYLA LOVELL, Tech: Selam Cunningham [facility] APPROVED REPORT EXAM: Two-dimensional and M-mode echocardiogram with Doppler and color Doppler. Other Information Quality : FairHR: 67bpm INDICATION End stage Renal Disease RISK FACTORS Hypertension Smoking 2D DIMENSIONS RVDd3.2 (2.9-3.5cm)Left Atrium(2D)3.6 (1.6-4.0cm) IVSd0.7 (0.7-1.1cm)Aortic Root(2D)2.8 (2.0-3.7cm) LVDd4.7 (3.9-5.9cm)LVOT Diameter2.0 (1.8-2.4cm) PWd0.7 (0.7-1.1cm)LVDs2.8 (2.5-4.0cm) FS (%) 40.0 %SV73.4 ml LVEF(%)70.6 (>50%) Aortic Valve AoV Peak Alfredo.169.2cm/sAoV VTI40.4cm AO Peak GR.11.4mmHgLVOT Peak Alfredo.106.5cm/s LVOT VTI 24.82cmAO Mean GR.6mmHg CHAD (VMAX)1.97sp0MKF (VTI)2.02cm2 Mitral Valve MV E Orhwjmmp710.9cm/sMV DECEL TWYZ241dl MV A Bbtuumkb69.6cm/sMV GKN39ja E/A Ratio1.7MVA (PHT)3.44cm2 TDI E/Lateral E'13.4E/Medial E'17.7 Pulmonary Valve PV Peak Vgyjecbp85.6cm/sPV Peak Grad.4mmHg Tricuspid Valve TR P. Tiagqfvq001ei/sRAP SFMORYBH6cpBp TR Peak Gr.50lhLkUTAW67tpRz Pulmonary Vein S1 Bovzdeow93.5cm/sD2 Qlgwjdpw04.2cm/s PVa [id number] LEFT VENTRICLE The left ventricle is normal size. There is normal left ventricular wall thickness. The left ventricu lar systolic function is normal and the ejection fraction is within normal range. The Ejection Fracti on is 50-55%. There is normal LV segmental wall motion. The left ventricular diastolic function and f illing is normal for age. RIGHT VENTRICLE The right ventricle is normal size. There is normal right ventricular wall thickness. The right ventr icular systolic function is normal. ATRIA The left atrium size is normal. The right atrium size is normal. The interatrial septum is intact wit h no evidence for an atrial septal defect or patent foramen ovale as noted on 2-D or Doppler imaging. AORTIC VALVE The aortic valve is calcified but opens well. Doppler and Color Flow revealed trace aortic regurgitat ion. There is no significant aortic valvular stenosis. Calculated aortic valve area is 2.19 cm2 with maximum pressure gradient of 13 mmHg and mean pressure gradient of 6 mmHg. MITRAL VALVE Mitral annular calcification is mild to moderate. There is no evidence of mitral valve prolapse. Ther e is no mitral valve stenosis. Doppler and Color-flow revealed trace mitral regurgitation. TRICUSPID VALVE The tricuspid valve is normal in structure and function. Doppler and Color Flow revealed trace to mil d tricuspid regurgitation with an estimated PAP of 52 mmHg. There is moderate pulmonary hypertension. There is no tricuspid valve stenosis. PULMONIC VALVE The pulmonic valve is not well visualized. Doppler and Color Flow revealed trace pulmonic valvular re gurgitation. There is no pulmonic valvular stenosis. GREAT VESSELS The aortic root is normal in size. The ascending aorta is normal in size. The IVC is normal in size a nd collapses >50% with inspiration. PERICARDIAL EFFUSION There is no evidence of significant pericardial effusion. Critical Notification Critical Value: No <Conclusion> The left ventricular systolic function is normal and the ejection fraction is within normal range. Th e Ejection Fraction is 50-55%. There is normal LV segmental wall motion. Doppler and Color Flow revealed trace to mild tricuspid regurgitation with an estimated PAP of 52 mmH g. There is moderate pulmonary hypertension. Signed by : Edgar Wills, Electronically Approved : 04/01/2021 16:24:22
== END | disposition home or self-care (01) ==
LOC: ECHO 07:12
PROVIDERS: ATTEND Internal Medicine Cardiovascular Disease
DX: I73.9 Peripheral vascular disease, unspecified (principal); I77.1 Stricture of artery; I12.0 Hypertensive chronic kidney disease with stage 5 chronic kidney disease or end stage renal disease; N18.6 End stage renal disease; E78.00 Pure hypercholesterolemia, unspecified; K21.9 Gastro-esophageal reflux disease without esophagitis; F17.210 Nicotine dependence, cigarettes, uncomplicated; Z85.828 Personal history of other malignant neoplasm of skin; Z99.2 Dependence on renal dialysis; Z79.899 Other long term (current) drug therapy; Z98.890 Other specified postprocedural states; Z72.89 Other problems related to lifestyle; Z88.8 Allergy status to other drugs, medicaments and biological substances
CPT/HCPCS: 36415; 37225; 37229; 75625; 75716; 80048; 85027; 93306; 99152; 99153; C1724; C1725; C1760; C1769; C1892; C1894; J1644; J2250; J3010; J3490; J7030; Q9967; G0269

== ENCOUNTER → 2021-05-14 | Outpatient (CLI) | payer MEDICARE ==
[2021-04-01 12:25] VITALS: BP 127/85
[~2021-05-14] MED LIST changes: -ACETAMINOPHEN 325 MG TABLET. PO PRN; -ASPIRIN ENTERIC COATED 81 MG TABLET.DR. PO SCH; -CLOPIDOGREL BISULFATE 75 MG TABLET PO ONE; -CLOPIDOGREL BISULFATE 75 MG TABLET PO SCH; -CONTRAST GIVEN. MC PRN; -HEPARIN for IV BOLUS 10,000 UNIT/10 ML VIAL. IV ONE; -HEPARIN for IV BOLUS 10,000 UNIT/10 ML VIAL. ONE; -IODIXANOL 320 MG/ML 100 ML VIAL. IART ONE; -IODIXANOL 320 MG/ML 100 ML VIAL. ONE; -IV 1/2 NORMAL SALINE 1,000 ML IV SCH; -LIDOCAINE 1% Multi-Dose 20 ML VIAL. ONE; -MIDAZOLAM HCL/PF 2 MG/2 ML VIAL. IV ONE; -MIDAZOLAM HCL/PF 2 MG/2 ML VIAL. ONE; -NITROGLYCERIN 200 MCG/2 ML SYRINGE FOR CATH/VASC LAB. IART ONE; +REGADENOSON 0.4 MG/5 ML DISP.SYRIN. IV ONE; -fentaNYL PF VIAL 100 MCG/2 ML VIAL IV ONE; -fentaNYL PF VIAL 100 MCG/2 ML VIAL ONE
--- NOTE | 2021-05-14 14:27 | RAD ---
MR#: [id number] Date of Study: 05/14/2021 Ordering Physician: KEYLA LOVELL, Referring Physician: GEOVANY HORNE Tech: MARISOL Holm ARRT (R) (N) APPROVED REPORT Test Type: Pharmacological Stress Nurse/Tech: KWADWO SAAVEDRA Test Indications: LOWER LEG VENOUS BLOCKAGE, PARSONS Cardiac History: HTN, PVD- SEE EMR Medications: SEE EMR Medical History: HEMODIALYSIS, SMOKER, CVA- SEE EMR Resting ECG: SR W/PVC'S Resting Heart Rate: 69 bpm Resting Blood Pressure: 139/46mmHg Pretest Chest Pain: No chest pain Nurse/Tech Notes S1,S2, SLIGHT WHEEZE NOTED TO RUL, COUGH +, DENIED CP OR SOA AT THIS TIME. VSS. Consent: The procedure was explained to the patient in lay terms. Informed consent was witnessed. Andre eout was entered into [employer]. History and Stress Test performed by RT Michael (R) (N) Pharm. Details Pharmacologic stress testing was performed using 0.4mg per 5ml of regadenoson given intravenously ove r 7-10 seconds. Stress Symptoms PT C/O SOA DURING THE FIRST COUPLE MINUTES OF TESTING. VSS. DENIED CHEST PAIN. POST EXERCISE Reason for Termination: Infusion complete Max HR: 92 bpm Max Blood Pressure: 147/44mmHg Blood Pressure response to exercise: Normal blood pressure response during stress. Heart Rate response to exercise: WNL Chest Pain: No. Arrhythmia: . EKG ESSENTIALLY UNCHANGED FROM BASELINE, SR W/PVC'S NOTED. INTERPRETATION Stress EKG Conclusion: Non diagnostic EKG due to LBBB Imaging Protocol IMAGE PROTOCOL: Rest Tc-99m/stress Tc-99m 1 day Rest: Stress: Viability: Radiopharm.Tc99m JwgidjdnoLg38d Sestamibi Dose10.5mCi 31mCi Img Date 05/14/2021 05/14/2021 Inj-Img [id number]. 60min. Rest Admin Site:IV RT UPPER ARMAdministrator:MARISOL Holm ARRT (R)(N) Stress Admin Site: IV RT UPPER ARMAdministrator: Wolf Dixon, RT (R)(N) STRESS DATA End Diast. Vol.80.0mlLVEDV index BSA50.0ml End Syst. Vol.22.0mlLVESV index BSA14.0ml Myocardial Xilm184.0gEject. Yhybhikp66.0% Stress Scores Regional WT0.00Summed WT1.00 Regional WM0.00Summed WM2.00 The rest and stress images show normal perfusion, normal contraction and thickening. LV Perf. Quant 17 Seg. SSS0.00 17 Seg. SRS2.00 17 Seg. SDS0.00 Stress Defect Extent (% LAD)0.00Rest Defect Extent (% LAD)0.60Rev. Defect Extent (% LAD)0.00 Stress Defect Extent (% LCX) 0.00Rest Defect Extent (% LCX)0.00Rev. Defect Extent (% LCX)0.00 Stress Defect Extent (% RCA)0.00Rest Defect Extent (% RCA)8.90Rev. Defect Extent (% RCA)0.00 Stress Defect Extent (% CLAIRE)0.00Rest Defect Extent (% CLAIRE)3.90Rev. Defect Extent (% CLAIRE)0.00 Other Information Quality:Average Risk Assessment: Low Risk Conclusion 1. Non-diagnostic EKG due to LBBB 2. Normal perfusion at stress/rest. 3. Normal EF at > 70% 4. Low risk study Signed by : Edgar Wills, Electronically Approved : 05/14/2021 14:27:12
== END ==
LOC: NM 09:42
PROVIDERS: ATTEND Internal Medicine Cardiovascular Disease
DX: I44.7 Left bundle-branch block, unspecified (principal); I42.9 Cardiomyopathy, unspecified
CPT/HCPCS: 78452; 93017; A9500; J2785

== ENCOUNTER → 2021-12-24 | Outpatient (CLI) | payer MEDICARE ==
[2021-04-01 12:25] VITALS: BP 127/85
[~2021-12-24] MED LIST changes: +CYCL10TA19 PO; -CYCL10TA2 PO; -REGADENOSON 0.4 MG/5 ML DISP.SYRIN. IV ONE
--- NOTE | 2021-12-24 15:51 | RAD ---
MR#: [id number] Date of Study: 12/24/2021 Ordering Physician: KEYLA COLEMAN, Referring Physician: KEYLA COLEMAN, Tech: Zafar Haley MBA, RDMS, RVT, RDCS, RTR APPROVED REPORT Patient Location : OUT-PATIENT Indications Lower Extremity Edema : Bilateral Findings Grayscale images of superficial veins and saphenofemoral junctions bilaterally were grossly unremarka ble without any evidence of thrombus. Spectral waveform and color duplex analysis did not show any si gnificant reflux in bilateral greater and lesser saphenous veins. Critical Notification Critical Value: No <Conclusion> Bilateral lower extremity venous reflux study did not show any significant insufficiency involving gr eater or lesser saphenous veins. Signed by : Keyla Coleman, Electronically Approved : 12/24/2021 15:51:20
== END ==
LOC: US 13:17
PROVIDERS: ATTEND Internal Medicine Cardiovascular Disease
DX: R60.0 Localized edema (principal)
CPT/HCPCS: 93970

== ENCOUNTER → 2022-01-13 | Outpatient (CLI) | payer MEDICARE, OTHER ==
[2021-04-01 12:25] VITALS: BP 127/85
--- NOTE | 2022-01-14 08:16 | CARD ---
MR#: [id number] Date of Study: 01/13/2022 Ordering Physician: KEYLA COLEMAN, Referring Physician: Idris HORNE: Carlo Moore [facility] APPROVED REPORT EXAM: Two-dimensional and M-mode echocardiogram with Doppler and color Doppler. Other Information Quality : FairHR: 60bpm Rhythm : NSR INDICATION Acute on chronic diastolic heart failure. RISK FACTORS Hypertension Smoking Remote CVA 2D DIMENSIONS Left Atrium(2D)3.7 (1.6-4.0cm)IVSd0.9 (0.7-1.1cm) Aortic Root(2D)2.7 (2.0-3.7cm)LVDd4.6 (3.9-5.9cm) LVOT Diameter1.9 (1.8-2.4cm)PWd0.9 (0.7-1.1cm) LA Lenyit08 (18-58mL)LVDs3.0 (2.5-4.0cm) FS (%) 35.8 %SV64.9 ml LVEF(%)65.3 (>50%) Aortic Valve AoV Peak Alfredo.182.1cm/sAoV VTI40.5cm AO Peak GR.13.3mmHgLVOT Peak Alfredo.128.1cm/s LVOT VTI 32.35cmAO Mean GR.6mmHg CHAD (VMAX)1.93tp0FVV (VTI)2.24cm2 Mitral Valve MV E Plnyqmet672.1cm/sMV DECEL PHVV066wt MV A Xklbvjov482.9cm/sMV E Mean Gr.3mmHg MV OCF39meJ/A Ratio1.3 MVA (PHT)4.26cm2 TDI E/Lateral E'16.3E/Medial E'22.6 Pulmonary Valve PV Peak Fzcaexvn13.0cm/s Tricuspid Valve TR P. Xbvrehgt207tb/sTR Peak Gr.32mmHg Pulmonary Vein S1 Szqhgspy29.8cm/sD2 Kbnpnywz38.4cm/s LEFT VENTRICLE The left ventricle is normal size. There is normal left ventricular wall thickness. The left ventricu lar systolic function is normal. The ejection fraction is estimated at 60 to 65%. There is normal LV segmental wall motion. Transmitral Doppler flow pattern is Grade II-pseudonormal filling dynamics. No left ventricle thrombus noted on this study. There is no ventricular septal defect visualized. There is no left ventricular aneurysm. There is no mass noted in the left ventricle. RIGHT VENTRICLE The right ventricle is normal size. There is normal right ventricular wall thickness. The right ventr icular systolic function is normal. ATRIA The left atrium is moderately dilated. The right atrium size is normal. The interatrial septum is int act with no evidence for an atrial septal defect or patent foramen ovale as noted on 2-D or Doppler i maging. AORTIC VALVE The aortic valve is calcified but opens well. Doppler and Color Flow revealed no significant aortic r egurgitation. There is no significant aortic valvular stenosis. There is no aortic valvular vegetatio n. MITRAL VALVE Mitral annular calcification is moderate. The mitral valve is thickened but opens well. There is no e vidence of mitral valve prolapse. There is no mitral valve stenosis. Doppler and Color-flow revealed mild mitral regurgitation. TRICUSPID VALVE The tricuspid valve is normal in structure and function. Doppler and Color Flow revealed trace tricus pid regurgitation. The PA pressure was estimated at 45 mmHg. There is no tricuspid valve prolapse or vegetation. There is no tricuspid valve stenosis. PULMONIC VALVE The pulmonic valve is not well seen. Doppler and Color Flow revealed no pulmonic valvular regurgitati on. There is no pulmonic valvular stenosis. GREAT VESSELS The aortic root is normal in size. The ascending aorta is normal in size. The pulmonary artery is nor mal. The IVC is normal in size and collapses >50% with inspiration. PERICARDIAL EFFUSION There is no pleural effusion. There is no evidence of significant pericardial effusion. Critical Notification Critical Value: No <Conclusion> The left ventricular systolic function is normal. The ejection fraction is estimated at 60 to 65%. There is normal LV segmental wall motion. Mild mitral regurgitation. Trace tricuspid regurgitation. The PA pressure was estimated at 45 mmHg. There is no evidence of significant pericardial effusion. Signed by : Keyla Coleman, Electronically Approved : 01/14/2022 08:16:33
--- NOTE | 2022-01-14 08:25 | RAD ---
MR#: [id number] Date of Study: 01/13/2022 Ordering Physician: KEYLA COLEMAN, Referring Physician: KEYLA COLEMAN, Tech: Zafar Haley MBA, RDMS, RVT, RDCS, RTR APPROVED REPORT Patient Location: OUT-PATIENT Indications PAD VELOCITY AND DOPPLER WAVEFORM ANALYSIS RIGHT cm/secWaveformSeverity LEFT cm/secWaveform Severity dCFA 190.0MonophasicdCFA 264.0Biphasic Prof Fem Art. 122.0TriphasicProf Fem Art. 163.0Triphasic Fem Art Prox. 288.0MonophasicFem Art Prox. 158.0Monophasic Fem Art Mid. 426.0MonophasicFem Art Mid. 153.0Monophasic Fem Art Dist. 91.0MonophasicFem Art Dist. 272.0Monophasic Pop Art(Fossa) 84.0MonophasicPop Art(AK) 149.0Monophasic RECREATIONAL VEHICLE REPAIRER Prox. 60.0MonophasicPTA Prox. 87.0Monophasic RECREATIONAL VEHICLE REPAIRER Dist. 45.0MonophasicPTA Dist. 41.0Monophasic Per Art Mid. 78.0MonophasicPer Art Mid. 44.0Monophasic MAIRA Prox. 106.0BiphasicATA Prox. 110.0Monophasic DPA 72MonophasicDPA 72 Findings Grayscale images of peripheral arteries in bilateral lower extremities showed mild diffuse atheroscle rosis. Spectral waveform and color duplex analysis was performed in both lower extremities. The right common femoral artery showed slightly elevated velocities with monophasic waveform suggesti ve of moderate stenosis. The right superficial femoral artery showed significantly elevated velocitie s with monophasic waveforms in the proximal and mid segments with diminished velocities distally cons istent with 70 to 99% stenosis. There is three-vessel runoff below the knee. The left common femoral artery showed significantly elevated velocities with biphasic waveforms consi stent with 50 to 69% stenosis. The left superficial femoral artery showed monophasic waveforms with s ignificantly elevated velocity in the distal segment consistent with at least 70% stenosis. There is three-vessel runoff below the knee with monophasic waveforms probably secondary to inflow disease. Critical Notification Critical Value: Yes <Conclusion> Bilateral lower extremity peripheral artery disease showed significant stenoses involving proximal to mid segment of the right superficial femoral artery, left common femoral artery and the distal segme nt of left superficial femoral artery. Recommend aortogram with runoff/CTA for further evaluation. Signed by : Keyla Coleman, Electronically Approved : 01/14/2022 08:25:11
== END ==
LOC: US 08:08
PROVIDERS: ATTEND Internal Medicine Cardiovascular Disease
DX: I08.0 Rheumatic disorders of both mitral and aortic valves (principal); I70.203 Unspecified atherosclerosis of native arteries of extremities, bilateral legs; I50.33 Acute on chronic diastolic (congestive) heart failure
CPT/HCPCS: 93306; 93925; C8929

== ENCOUNTER → 2022-01-24 | Outpatient (CLI) | payer MEDICARE, OTHER ==
[~2022-01-24] VITALS: Ht 160 cm; Wt 72.7 kg
[2022-01-24] VITALS (13 sets, daily range): BP systolic 90–140; BP diastolic 48–78
[~2022-01-24] MED LIST changes: +AMLO-186 PO; +AMLO-187 PO; +ASPI-630 PO; +FOLI0.8T21 PO; +HEPARIN for IV BOLUS 10,000 UNIT/10 ML VIAL. IART ONE; +HEPARIN for IV BOLUS 10,000 UNIT/10 ML VIAL. ONE; +HYDR12.575 PO; +IODIXANOL 320 200 ML in NS 200 ML IART ONE; +IV 1/2 NORMAL SALINE 1,000 ML IV SCH; +LEVO112T49 PO; +LIDOCAINE 1% PF 2 ML VIAL. INJ ONE; +LIDOCAINE 1% PF 2 ML VIAL. ONE; +MAGN400T48 PO; +MIDAZOLAM HCL/PF 2 MG/2 ML VIAL. IV ONE; +MIDAZOLAM HCL/PF 2 MG/2 ML VIAL. ONE; +MONT10TA49 PO; +NITROGLYCERIN 200 MCG/2 ML SYRINGE FOR CATH/VASC LAB. IART ONE; +NITROGLYCERIN 200 MCG/2 ML SYRINGE FOR CATH/VASC LAB. ONE; +VERAPAMIL 5 MG/2 ML VIAL. IART ONE; +VERAPAMIL 5 MG/2 ML VIAL. ONE; +fentaNYL PF VIAL 100 MCG/2 ML VIAL IV ONE; +fentaNYL PF VIAL 100 MCG/2 ML VIAL ONE
[2022-01-24 09:31] LABS: HEMATOCRIT 38.4 % (36.0-47.0); HEMOGLOBIN 12.7 g/dL (12.0-15.5); RED BLOOD COUNT 4.03 x10^6/uL (3.50-5.40); RED CELL DISTRIBUTION WIDTH 13.6 % (11.5-14.5); WHITE BLOOD COUNT 7.5 x10^3/uL (4.0-11.0)
[2022-01-24 09:40] LABS: PROTHROMBIN TIME PATIENT 12.3 SEC (11.7-14.0)
[2022-01-24 09:43] LABS: CALCIUM 8.9 mg/dL (8.5-10.1); CREATININE 1.7 mg/dL (0.6-1.0); GFR 29.2; POTASSIUM 4.5 mmol/L (3.5-5.1)
--- NOTE | 2022-01-24 11:16 | PDOC ---
MODERATE SEDATION ASSESSMENT RISKS/ALTERNATIVES Risks/Alternatives Risks and alternatives of this type of sedation and procedure discussed with: RISK/ALTERNATIVES: Patient H & P ON CHART H & P H & P on chart and reviewed for co-morbid conditions and appropriate labs. H&P ON CHART: Yes STATUS PREG STATUS ASSESSED: N/A MEDS/ALLERGIES REVIEWED Meds/Allergies Reviewed Medications and Allergies including time and route of recently administered narcotics and sedatives. MEDS/ALLERGIES REVIEWED: Yes ASA RATING ASA RATING: II AIRWAY ASSESSMENT Airway Assessment Airway patency, oral function limitations, presence of caps, crowns, dentures, partials, and ability to extend neck assessed. AIRWAY ASSESSMENT: Yes MALLAMPATI SCORE MALLAMPATI SCORE: II PRE-SEDATION ASSESSMENT PRE-SEDATION ASSESSMENT: Yes KEYLA LOVELL MD Jan 24, 2022 11:16
--- NOTE | 2022-01-24 11:28 | CARD ---
MR#: [id number] Date of Study: 01/24/2022 Ordering Physician: KEYLA COLEMAN, Referring Physician: KEYLA COLEMAN, Tech: RT Marleni(R) APPROVED REPORT Patient StatusOUT-PATIENT Physician/Internist: RT Marleni(R) Procedure(s) performed: Aortogram with bilateral lower extremity runoff via right transradial approac h FL TIME: 5.9 MIN DOSE: 25 GYCM2 CONTRAST: 87 ML MODERATE SEDATION: 30 MINS INDICATION FOR PROCEDURE The indication(s) include : Peripheral artery disease, abnormal arterial duplex scan. CASE TECHNIQUE After explaining the risks, benefits, and alternative options, informed consent was obtained from the patient. IV conscious sedation was used throughout procedure with appropriate monitoring and was per formed in the presence of a registered nurse who was an independent trained observer other than the timothy teague performing the procedure. During this case, Fluoroscopy and low osmolar contrast were used f or imaging. Specimen(s) Removed: No Estimated Blood loss: 10 cc's. PROCEDURE NARRATIVE After explaining the risk, benefits and alternative options, informed consent was obtained from patie nt. Patient was brought to the cardiac Nuclear Medicine Specialist and her right wrist was prepped and draped in the us ual fashion after confirming a positive modified Cecilio's test. Arterial access was obtained in the r ight radial artery and a 6 Estonian sheath was inserted. A 4 Estonian R2P PV Multicurve catheter was the n advanced under fluoroscopy guidance and with the tip positioned in the distal descending aorta, aor toiliac angiography was performed. The catheter was advanced into the left external iliac artery and selective left lower extremity angiography was performed. The catheter was then withdrawn and advan mike into the right external iliac artery and selective right lower extremity angiography was performe d. Patient tolerated the procedure well. Hemostasis was achieved using TR band. There were no imme diate complications. FINDINGS 1. No significant stenosis involving distal descending aorta 2. No significant stenosis involving bilateral common and external iliac arteries 3. No significant stenosis involving bilateral common femoral arteries 4. No significant stenosis involving bilateral deep femoral arteries. The left superficial femoral artery showed 40% stenosis in the mid to distal segment and the right superficial femoral artery show ed 60% stenosis in the midsegment. 5. No significant stenosis involving bilateral popliteal arteries. 6. There is two-vessel runoff below the knee bilaterally with under percent chronic total occlusions of posterior tibial arteries bilaterally. The left anterior tibial artery showed 70% stenosis in th e proximal segment. Conclusion 60% discrete stenosis of right superficial femoral artery and 40% stenosis of left superficial femora l artery. 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 No critical lesio ns needing intervention were noted. Recommendations Vascular risk factor modification including regular exercise regimen Signed by : Keyla Coleman, Electronically Approved : 01/24/2022 11:27:37
--- NOTE | 2022-01-24 13:35 | NUR ---
Discharge Note: Lizandro CRANE Discharge instructions and discharge home medications reviewed with Patient and a copy given. All questions have been answered and understanding verbalized. The following instructions and handouts were given: radial site care,smoking cessation,adult moderate sedation Discontinued lines and drains: Peripheral IV intact. Patient discharged to Home or Self Care withFamily Membera Wheelchair
== END | disposition home or self-care (01) ==
LOC: CCL 08:46
PROVIDERS: ATTEND Internal Medicine Cardiovascular Disease
DX: I73.9 Peripheral vascular disease, unspecified (principal); I10 Essential (primary) hypertension; E78.00 Pure hypercholesterolemia, unspecified; K21.9 Gastro-esophageal reflux disease without esophagitis; F17.210 Nicotine dependence, cigarettes, uncomplicated; Z98.51 Tubal ligation status; Z85.828 Personal history of other malignant neoplasm of skin; Z98.890 Other specified postprocedural states; Z79.899 Other long term (current) drug therapy; Z79.82 Long term (current) use of aspirin
CPT/HCPCS: 36246; 36415; 75625; 75716; 80048; 85027; 85610; 99152; 99153; C1769; C1894; J1644; J2250; J3010; J3490; J7050; Q9967; J7030